=== PATIENT | male | born 1955 | race Caucasian/White ===

== ENCOUNTER 2016-12-05 15:58 | Emergency (ER) | payer OTHER ==
[~2016-12-05] VITALS: Ht 162.6 cm; Wt 57.1 kg
[~2016-12-05 15:58] MED LIST: ADVAIR 250/501 DISK IH; ADVAIR HFA120 INHALA IH; ALDOMET250 MG PO; ALDOMET500 MG PO; ALPRAZOLAM0.25 M2 PO; ALPRAZOLAM0.5 MG PO; ALPRAZOLAM1 MG PO; AMBIEN10 M1 PO; AMITRIPTYLINE H25 MG PO; AMLODIPINE BESY10 MG PO; AMLODIPINE BESYL5 MG PO; AMOX TR-K CLV1 EAC3 PO; ANTI-DIARRHEAL2 M2 PO; ASPIR-TRIN325 M1 PO; ATROVENT 00.5 MG/2.5 IH; Advair HFA 115/21 IH; Ambien PO; BACTRIM,SEPT1 TABLET PO; BUMETANIDE1 MG PO; BYSTOLIC10 MG PO; Bactrim,Septra DS 80 PO; CALCITRIOL0.25 MCG PO; CALCIUM ACETAT667 M2 PO; CALCIUM ACETAT667 MG PO; CARDIZEM CD120 MG PO; CARDIZEM CD240 MG PO; CARDURA XL8 MG PO; CARDURA8 MG PO; CITALOPRAM HBR10 MG PO; CLEOCIN300 MG PO; CLONAZEPAM0.5 MG PO; CLONAZEPAM1 MG PO; CLONIDINE HCL0.1 MG PO; CYANOCOBALAM1000 MCG PO; DEPO-TESTOS100 MG/ML IM; DEPO-TESTOS200 MG/ML IM; DIALYVITE 3,001 EACH PO; DILAUDID2 MG PO; DILAUDID4 MG PO; DIOVAN160 MG PO; DOCUSATE SODIU100 MG PO; DOLOPHINE HCL10 MG PO; DOXAZOSIN MESYLA2 MG PO; DOXAZOSIN MESYLA8 MG PO; DOXYCYCLINE HY100 MG PO; ELAVIL25 MG PO; ELIPHOS667 MG PO; Elavil PO; FEOSOL325 MG PO; FERROUS SULFAT325 M2 PO; FLONASE16 G1 BOTH NARES; FOLIC ACID1 MG PO; FUROSEMIDE40 MG PO; Flomax PO; GABAPENTIN100 MG PO; GABAPENTIN300 MG PO; HUMALOG100 UNIT/1 SC; HUMALOG100 UNIT/1 SQ; HYDROMORPHONE HC2 MG PO; HYDROMORPHONE HC4 MG PO; KEFLEX500 MG PO; KLONOPIN1 MG PO; LABETALOL HCL200 MG PO; LANTUS 10100 UNITS/ SC; LANTUS 3 M100 UNITS/ SC; LANTUS 3 M100 UNITS1 SC; LASIX40 MG PO; LEVAQUIN750 MG PO; LEVOFLOXACIN250 MG PO; LEVOFLOXACIN750 MG PO; METHADONE10 MG PO; METHADOSE40 MG PO; METHYLDOPA250 MG PO; METHYLDOPA500 MG PO; METOCLOPRAMIDE H5 MG PO; MIRALAX17 GM PO; MIRALAX255 GM PO; MUCINEX600 MG PO; NEPHRO-VITE RX1 EACH PO; NEPHRO-VITE,1 TABLET PO; NIFEDICAL XL60 MG PO; NORMODYNE,TRAN200 MG PO; NORVASC10 MG PO; NOVOLIN 70100 UNIT/2 SQ; NOVOLOG 10100 UNITS/ SC; NOVOLOG 10100 UNITS/ SQ; NOVOLOG PE100 UNITS/ SC; Normodyne,Trandate PO; Norvasc PO; OXAYDO5 MG PO; OXYCODONE HCL10 MG PO; OXYCODONE HCL5 MG PO; PANTOPRAZOLE SO40 MG PO; PREDNISONE10 MG PO; PREDNISONE20 MG PO; PRILOSEC OTC20 MG PO; PRILOSEC20 MG PO; PROAIR HFA8.5 GM IH; PROTONIX40 MG PO; PROVENTIL,2.5 MG/3 M IH; PROVENTIL17 GM IH; Procardia XL,Adalat PO; Protonix PO; Proventil,Ventolin H IH; Reglan PO; SPIRIVA RESPIMAT4 GM IH; SPIRIVA1 INHALATI IH; TESTOSTERO200 MG/12 IM; TESTOSTERONE IM; TYLENOL REGULA325 MG PO; Tylenol PR; VENTOLIN HFA18 GM IH; VITAMIN D1000 INTUN PO; XANAX0.5 MG PO; XANAX1 MG PO; Xanax PO; [UNRECOGNIZED DRUG - OTHER] IM; predniSONE PO
[2016-12-05 16:41] LABS: MCH 28.5 PG (29.0-34.0); MCHC 31.8 G/DL (30.0-36.0); MCV 89.9 FL (86-99); MEAN PLAT.VOLUME 9.5 uM^3 (9.0-12.4); PLATELET COUNT 228 K/uL (156-360); RBC DIS.WIDTH-CV 15.6 % (11.8-14.6); RED BLOOD COUNT 4.45 M/uL (4.00-5.50); WHITE BLOOD COUNT 6.2 K/uL (4.1-10.2)
[2016-12-05 17:01] LABS: CHLORIDE 91 mEq/L (99-109); POTASSIUM 4.4 mEq/L (3.7-5.4); SODIUM 138 mEq/L (136-147)
[2016-12-05 17:03] LABS: GLUCOSE 154 mg/dL (70-99)
[2016-12-05 17:04] LABS: ANION GAP 13 MEQ/L (2-14)
[2016-12-05 17:07] LABS: GFR ESTIMATE (CALCULATED) 20 mL/min/
[2016-12-05 17:08] LABS: UREA NITROGEN (BUN) 23 mg/dL (9-23)
[2016-12-05 17:11] LABS: TROP-I INTERPRETATION NEGATIVE; TROPONIN-I 0.02 ng/mL (0.0-0.30)
[2016-12-05 20:15] LABS: TROP-I INTERPRETATION NEGATIVE; TROPONIN-I 0.03 ng/mL (0.0-0.30)
[2016-12-05 21:23] VITALS: BP 180/98
== END 2016-12-05 21:24 | disposition home or self-care (01) ==
LOC: EME → EDBD 15:58 → EDSEX 15:58 → EME 15:58
PROVIDERS: Emergency Medicine
DX: R07.89 Other chest pain (principal); M54.9 Dorsalgia, unspecified; R91.1 Solitary pulmonary nodule; G89.29 Other chronic pain; I12.0 Hypertensive chronic kidney disease with stage 5 chronic kidney disease or end stage renal disease; E11.22 Type 2 diabetes mellitus with diabetic chronic kidney disease; N18.6 End stage renal disease; Z99.2 Dependence on renal dialysis; Z79.4 Long term (current) use of insulin; J44.9 Chronic obstructive pulmonary disease, unspecified; J45.909 Unspecified asthma, uncomplicated; Z87.891 Personal history of nicotine dependence; Z79.891 Long term (current) use of opiate analgesic
CPT/HCPCS: 71020; 80048; 84484; 85027; 93005; 94640; 99281; 99285

== ENCOUNTER 2016-12-18 10:37 | Inpatient (IN) | payer OTHER ==
[~2016-12-18] VITALS: Ht 165.1 cm; Wt 54.7 kg
[2016-12-18 11:36] LABS: MCH 29.3 PG (29.0-34.0); MCHC 31.3 G/DL (30.0-36.0); MCV 93.8 FL (86-99); MEAN PLAT.VOLUME 9.6 uM^3 (9.0-12.4); PLATELET COUNT 165 K/uL (156-360); RBC DIS.WIDTH-CV 15.7 % (11.8-14.6); RBC DIS.WIDTH-SD 51.1 % (39-53); RED BLOOD COUNT 4.16 M/uL (4.00-5.50); WHITE BLOOD COUNT 20.4 K/uL (4.1-10.2)
[2016-12-18 11:40] LABS: CHLORIDE 91 mEq/L (99-109); POTASSIUM 4.9 mEq/L (3.7-5.4); SODIUM 138 mEq/L (136-147)
[2016-12-18 11:40] LABS: BASE EXCESS 8.2 mEq/L (-3 to +3); BICARBONATE 34.9 mEq/L (22-26); CARBOXY HGB 1.5 % (0-5); COMMENTS - BLOOD GASES +C; DEVICE NRBMASK; FI02 100 %; METHEMOGLOBIN 0.6 % (0-1.5); O2 FLOW 15 L/MIN; PCO2 59 mm Hg (35-45); PO2 73 mm Hg (80-100); SITE RR +A; TOTAL RESP RATE 16 resp/min; pH 7.38 (7.35-7.45)
[2016-12-18 11:42] LABS: GLUCOSE 84 mg/dL (70-99)
[2016-12-18 11:43] LABS: ANION GAP 20 MEQ/L (2-14)
[2016-12-18 11:44] LABS: TOTAL BILIRUBIN 0.8 mg/dL (0.0-1.0)
[2016-12-18 11:45] LABS: ALKALINE PHOSPHATASE 106 IU/L (3-129)
[2016-12-18 11:46] LABS: GFR ESTIMATE (CALCULATED) 9 mL/min/
[2016-12-18 11:47] LABS: UREA NITROGEN (BUN) 39 mg/dL (9-23)
[2016-12-18 11:49] LABS: TROP-I INTERPRETATION NEGATIVE; TROPONIN-I 0.07 ng/mL (0.0-0.30)
[2016-12-18 12:18] LABS: EOSINOPHIL (%) 0 % (0-5); IMMATURE GRANULOCYTE (%) 1.6 % (0.0-0.7); IMMATURE GRANULOCYTE COUNT 3.2 K/uL; MONOCYTE (%) 4.9 % (3-12); NEUTROPHIL (%) 88.6 % (45-76); NEUTROPHIL COUNT 18.2 K/uL (1.8-6.4)
[2016-12-18] MEDS ORDERED: DILAUDID4 MG PO (12:32)
[2016-12-18] MEDS ORDERED: METHADONE10 MG PO (12:32)
[2016-12-18] MEDS ORDERED: XANAX0.5 MG PO (12:33)
[2016-12-18] MEDS ORDERED: XANAX0.25 MG PO (12:33)
[2016-12-18 13:09] LABS: HEMATOLOGY COMMENT 1 SMEAR COMPATIBLE; USER ID CL
[2016-12-18 14:06] LABS: CHLORIDE 96 mEq/L (99-109); SODIUM 138 mEq/L (136-147)
[2016-12-18 14:09] LABS: GLUCOSE 146 mg/dL (70-99)
[2016-12-18 14:10] LABS: ANION GAP 14 MEQ/L (2-14)
[2016-12-18 14:11] LABS: TOTAL BILIRUBIN 0.5 mg/dL (0.0-1.0)
[2016-12-18 14:12] LABS: ALKALINE PHOSPHATASE 90 IU/L (3-129); GFR ESTIMATE (CALCULATED) 10 mL/min/
[2016-12-18 14:13] LABS: UREA NITROGEN (BUN) 41 mg/dL (9-23)
[2016-12-18 14:25] LABS: AHBS INDEX 0; HEPATITIS B SURFACE ANTIBODY Nonreactive
[2016-12-18 16:35] LABS: POINT-OF-CARE METER ID UU14100415
[2016-12-18 22:29] VITALS: BP 123/59
[2016-12-19 01:18] VITALS: BP 123/58
[2016-12-19 05:52] VITALS: BP 129/62
[2016-12-19 07:01] LABS: HEMATOCRIT 37.5 % (38.0-50.0); MCH 27.9 PG (29.0-34.0); MCHC 30.1 G/DL (30.0-36.0); MCV 92.6 FL (86-99); PLATELET COUNT 147 K/uL (156-360); RBC DIS.WIDTH-CV 16.2 % (11.8-14.6); RED BLOOD COUNT 4.05 M/uL (4.00-5.50); WHITE BLOOD COUNT 14.4 K/uL (4.1-10.2)
[2016-12-19 07:21] LABS: ALKALINE PHOSPHATASE 71 IU/L (3-129); ANION GAP 16 MEQ/L (2-14); CHLORIDE 96 MEQ/L (99-109); GFR ESTIMATE (CALCULATED) 9 mL/min/; POTASSIUM 5.3 MEQ/L (3.7-5.4); SAMPLE HEMOLYSIS CHECK 0; SAMPLE ICTERIC CHECK 0; SAMPLE LIPEMIA CHECK 0; SODIUM 137 MEQ/L (136-147); TOTAL BILIRUBIN 0.6 MG/DL (0.0-1.0); UREA NITROGEN (BUN) 61 mg/dL (9-23)
[2016-12-19 07:24] LABS: GLUCOSE 98 mg/dL (70-99)
[2016-12-19 08:03] LABS: HEMATOCRIT 34.1 % (38.0-50.0); MCH 29.5 PG (29.0-34.0); MCV 92.4 FL (86-99); MEAN PLAT.VOLUME 9.9 uM^3 (9.0-12.4); PLATELET COUNT 140 K/uL (156-360); RBC DIS.WIDTH-CV 16.1 % (11.8-14.6); RBC DIS.WIDTH-SD 54.2 % (39-53); RED BLOOD COUNT 3.69 M/uL (4.00-5.50); WHITE BLOOD COUNT 14.8 K/uL (4.1-10.2)
[2016-12-19 08:06] LABS: DELETE MACHINE DIFF? YES
[2016-12-19 08:07] LABS: ANISOCYTOSIS 1+; HYPOCHROMASIA 1+; MACROCYTES OCC; PLAT.SUFFICIENCY DECREASED; SPHEROCYTES 1+; USER ID TLW
[2016-12-19 08:17] LABS: EOSINOPHIL (%) 0 % (0-5); IMMATURE GRANULOCYTE (%) 2.8 % (0.0-0.7); IMMATURE GRANULOCYTE COUNT 0.4 K/uL; LYMPHOCYTE COUNT 0.7 K/uL (1.0-2.8); MONOCYTE (%) 2.5 % (3-12); MONOCYTE COUNT 0.4 K/uL (0-0.8); NEUTROPHIL (%) 90.2 % (45-76); NEUTROPHIL COUNT 13.4 K/uL (1.8-6.4)
[2016-12-19 08:18] LABS: ANION GAP 14 MEQ/L (2-14); CHLORIDE 93 MEQ/L (99-109); GFR ESTIMATE (CALCULATED) 8 mL/min/; GLUCOSE 110 mg/dL (70-99); POTASSIUM 5.2 MEQ/L (3.7-5.4); SAMPLE HEMOLYSIS CHECK 0; SAMPLE ICTERIC CHECK 0; SAMPLE LIPEMIA CHECK 0; SODIUM 134 MEQ/L (136-147); UREA NITROGEN (BUN) 63 mg/dL (9-23)
[2016-12-19 08:26] VITALS: BP 144/63
[2016-12-19 08:36] LABS: ABS NEUTROPHIL COUNT 13.95
[2016-12-19 08:37] LABS: ANISOCYTOSIS 1+; HYPOCHROMASIA 1+; MACROCYTES OCC; PLAT.SUFFICIENCY DECREASED; SPHEROCYTES 1+; USER ID TLW
[2016-12-19 16:34] VITALS: BP 119/56
[2016-12-19 20:00] VITALS: BP 147/65
[2016-12-19 23:47] VITALS: BP 124/58
[2016-12-20 04:00] VITALS: BP 129/60
[2016-12-20 07:28] VITALS: BP 139/65
[2016-12-20 08:14] LABS: ANION GAP 14 MEQ/L (2-14); CHLORIDE 95 MEQ/L (99-109); POTASSIUM 5.1 MEQ/L (3.7-5.4); SAMPLE HEMOLYSIS CHECK 0; SAMPLE ICTERIC CHECK 0; SAMPLE LIPEMIA CHECK 0; SODIUM 136 MEQ/L (136-147); UREA NITROGEN (BUN) 46 mg/dL (9-23)
[2016-12-20 08:18] LABS: GFR ESTIMATE (CALCULATED) 13 mL/min/; GLUCOSE 215 mg/dL (70-99); VANCOMYCIN, TROUGH 16.3 MCG/ML (10-20)
[2016-12-20 08:48] LABS: HEMATOLOGY COMMENT 1 REV; USER ID NJR
[2016-12-20 08:49] LABS: EOSINOPHIL (%) 0 % (0-5); IMMATURE GRANULOCYTE (%) 0.6 % (0.0-0.7); IMMATURE GRANULOCYTE COUNT 0.1 K/uL; LYMPHOCYTE COUNT 0.3 K/uL (1.0-2.8); MONOCYTE (%) 2.2 % (3-12); MONOCYTE COUNT 0.2 K/uL (0-0.8); NEUTROPHIL (%) 94.1 % (45-76); NEUTROPHIL COUNT 8.9 K/uL (1.8-6.4)
[2016-12-20 08:50] LABS: HEMATOCRIT 32.8 % (38.0-50.0); MCH 29.5 PG (29.0-34.0); MCHC 31.7 G/DL (30.0-36.0); MCV 92.9 FL (86-99); PLATELET COUNT 123 K/uL (156-360); RBC DIS.WIDTH-CV 16.2 % (11.8-14.6); RBC DIS.WIDTH-SD 55.2 % (39-53); RED BLOOD COUNT 3.53 M/uL (4.00-5.50); WHITE BLOOD COUNT 9.5 K/uL (4.1-10.2)
[2016-12-20 16:44] VITALS: BP 142/66
[2016-12-20 19:41] VITALS: BP 145/70
[2016-12-20 23:33] VITALS: BP 154/71
[2016-12-21 04:00] VITALS: BP 167/77
[2016-12-21 07:54] LABS: INTERNAL CONTROL VALID? YES
[2016-12-21 08:07] LABS: HEMATOCRIT 29.6 % (38.0-50.0); MCH 28.1 PG (29.0-34.0); MCHC 31.4 G/DL (30.0-36.0); MCV 89.4 FL (86-99); MEAN PLAT.VOLUME 9.6 uM^3 (9.0-12.4); PLATELET COUNT 108 K/uL (156-360); RBC DIS.WIDTH-SD 52.9 % (39-53); RED BLOOD COUNT 3.31 M/uL (4.00-5.50); WHITE BLOOD COUNT 9.5 K/uL (4.1-10.2)
[2016-12-21 08:51] LABS: ANION GAP 12 MEQ/L (2-14); CHLORIDE 90 MEQ/L (99-109); POTASSIUM 4.8 MEQ/L (3.7-5.4); SAMPLE HEMOLYSIS CHECK 0; SAMPLE ICTERIC CHECK 0; SAMPLE LIPEMIA CHECK 0
[2016-12-21 08:52] LABS: GFR ESTIMATE (CALCULATED) 10 mL/min/; GLUCOSE 372 mg/dL (70-99); UREA NITROGEN (BUN) 75 mg/dL (9-23)
[2016-12-21 08:53] LABS: SODIUM 128 MEQ/L (136-147)
[2016-12-21 09:15] LABS: ABS NEUTROPHIL COUNT 8.73; ANISOCYTOSIS 1+; EOSINOPHIL (%) 0 % (0-5); IMMATURE GRANULOCYTE (%) 0.7 % (0.0-0.7); IMMATURE GRANULOCYTE COUNT 0.1 K/uL; LYMPHOCYTE COUNT 0.5 K/uL (1.0-2.8); MONOCYTE (%) 4.1 % (3-12); MONOCYTE COUNT 0.4 K/uL (0-0.8); NEUTROPHIL (%) 89.3 % (45-76); NEUTROPHIL COUNT 8.5 K/uL (1.8-6.4); PLAT.SUFFICIENCY DECREASED; POLYCHROMASIA 1+; TOXIC GRANULATION 1+; USER ID MCB
[2016-12-21 12:45] VITALS: BP 138/80
[2016-12-21 16:00] VITALS: BP 153/71
[2016-12-21 20:20] VITALS: BP 164/78
[2016-12-21 23:42] VITALS: BP 177/80
[2016-12-22] VITALS (16 sets, daily range): BP systolic 0–156; BP diastolic 0–88
[2016-12-22 02:07] LABS: TROP-I INTERPRETATION NEGATIVE; TROPONIN-I 0.03 ng/mL (0.0-0.30)
[2016-12-22 02:12] LABS: CHLORIDE 94 mEq/L (99-109); POTASSIUM 4.9 mEq/L (3.7-5.4); SODIUM 134 mEq/L (136-147)
[2016-12-22 02:14] LABS: GLUCOSE 298 mg/dL (70-99)
[2016-12-22 02:15] LABS: ANION GAP 16 MEQ/L (2-14)
[2016-12-22 02:18] LABS: GFR ESTIMATE (CALCULATED) 16 mL/min/
[2016-12-22 02:19] LABS: UREA NITROGEN (BUN) 47 mg/dL (9-23)
[2016-12-22 03:23] LABS: BASE EXCESS 0.9 mEq/L (-3 to +3); BICARBONATE 27.1 mEq/L (22-26); CARBOXY HGB 0.9 % (0-5); COMMENTS - BLOOD GASES C+A+; DEVICE NC; O2 FLOW 4 L/MIN; PCO2 49 mm Hg (35-45); PO2 76 mm Hg (80-100); SITE RR; pH 7.35 (7.35-7.45)
[2016-12-22 06:09] LABS: HEMATOCRIT 35.8 % (38.0-50.0); MCH 28.9 PG (29.0-34.0); MCHC 31.3 G/DL (30.0-36.0); MCV 92.5 FL (86-99); MEAN PLAT.VOLUME 10.4 uM^3 (9.0-12.4); NRBC (%) 0.5 /100 WBC (0-0); PLATELET COUNT 110 K/uL (156-360); RBC DIS.WIDTH-CV 16.3 % (11.8-14.6); RBC DIS.WIDTH-SD 54.1 % (39-53); RED BLOOD COUNT 3.87 M/uL (4.00-5.50); WHITE BLOOD COUNT 7.8 K/uL (4.1-10.2)
[2016-12-22 06:44] LABS: ANION GAP 18 MEQ/L (2-14); CHLORIDE 92 MEQ/L (99-109); GFR ESTIMATE (CALCULATED) 15 mL/min/; GLUCOSE 314 mg/dL (70-99); POTASSIUM 4.8 MEQ/L (3.7-5.4); SAMPLE HEMOLYSIS CHECK 0; SAMPLE ICTERIC CHECK 0; SAMPLE LIPEMIA CHECK 0; SODIUM 133 MEQ/L (136-147); UREA NITROGEN (BUN) 52 mg/dL (9-23)
[2016-12-22 06:47] LABS: VANCOMYCIN, TROUGH 15.7 MCG/ML (10-20)
[2016-12-22 07:06] LABS: METH RESISTANT S AUREUS PCR NEGATIVE (NEGATIVE); PROBE CHECK PASS; SPECIMEN PROCESSING CONTROL PASS
[2016-12-22 07:21] LABS: TROP-I INTERPRETATION NEGATIVE
[2016-12-22 07:48] LABS: BASE EXCESS 1.2 mEq/L (-3 to +3); CARBOXY HGB 0.4 % (0-5); METHEMOGLOBIN 0.9 % (0-1.5); pH 7.41 (7.35-7.45)
[2016-12-22 07:49] LABS: COMMENTS - BLOOD GASES A+C+; CONTINUOUS POS AIRWAY PRESSURE 5 cm H2O; DEVICE 980; FI02 30 %; MODE NIPPV; PCO2 41 mm Hg (35-45); PO2 111 mm Hg (80-100); PRES. SUPPORT 8 CM/H2O; SITE RR; TOTAL RESP RATE 20 resp/min
[2016-12-22 08:26] LABS: BASOPHIL COUNT 0.2 K/uL (0-0.1); EOSINOPHIL (%) 0.1 % (0-5); HEMATOLOGY COMMENT 1 SMEAR COMPATIBLE; IMMATURE GRANULOCYTE (%) 1.3 % (0.0-0.7); IMMATURE GRANULOCYTE COUNT 0.1 K/uL; LYMPHOCYTE COUNT 0.9 K/uL (1.0-2.8); MONOCYTE (%) 4.6 % (3-12); MONOCYTE COUNT 0.4 K/uL (0-0.8); NEUTROPHIL (%) 79.9 % (45-76); NEUTROPHIL COUNT 6.3 K/uL (1.8-6.4); USER ID STC
[2016-12-22 11:09] LABS: Estimated Average Glucose 140 mg/dL (70-123); HEMOGLOBIN A1c (GLYCOHEMOGLOB) 6.5 % HGB (Below 5.7)
[2016-12-22] MEDS ORDERED: ALPRAZOLAM1 MG PO (12:15)
[2016-12-22] MEDS ORDERED: NOVOLOG PE100 UNITS/ SC (12:16)
[2016-12-22 16:02] LABS: TROP-I INTERPRETATION NEGATIVE
[2016-12-22 17:50] LABS: POINT-OF-CARE METER ID UU14174217
[2016-12-22 21:22] LABS: POINT-OF-CARE METER ID UU14174217
[2016-12-22 23:45] LABS: TROP-I INTERPRETATION INDETERMINATE; TROPONIN-I 0.44 ng/mL (0.0-0.30)
[2016-12-23] VITALS (11 sets, daily range): BP systolic 112–154; BP diastolic 61–82
[2016-12-23 05:43] LABS: HEMATOCRIT 32.9 % (38.0-50.0); MCH 28.9 PG (29.0-34.0); MCHC 32.2 G/DL (30.0-36.0); MCV 89.6 FL (86-99); MEAN PLAT.VOLUME 10.4 uM^3 (9.0-12.4); PLATELET COUNT 141 K/uL (156-360); RBC DIS.WIDTH-CV 16.2 % (11.8-14.6); RBC DIS.WIDTH-SD 53.2 % (39-53); RED BLOOD COUNT 3.67 M/uL (4.00-5.50); WHITE BLOOD COUNT 9.9 K/uL (4.1-10.2)
[2016-12-23 06:15] LABS: ANION GAP 15 MEQ/L (2-14); CHLORIDE 92 MEQ/L (99-109); GFR ESTIMATE (CALCULATED) 10 mL/min/; POTASSIUM 4.9 MEQ/L (3.7-5.4); SAMPLE HEMOLYSIS CHECK 0; SAMPLE ICTERIC CHECK 0; SAMPLE LIPEMIA CHECK 0; SODIUM 133 MEQ/L (136-147)
[2016-12-23 06:17] LABS: GLUCOSE 30 mg/dL (70-99); UREA NITROGEN (BUN) 85 mg/dL (9-23)
[2016-12-23 06:21] LABS: TROP-I INTERPRETATION INDETERMINATE; TROPONIN-I 0.52 ng/mL (0.0-0.30)
[2016-12-23 07:21] LABS: POINT-OF-CARE METER ID UU14162636
[2016-12-23 12:18] LABS: POINT-OF-CARE METER ID UU14174217
[2016-12-23 18:20] LABS: POINT-OF-CARE METER ID UU13113731
[2016-12-23 21:42] LABS: POINT-OF-CARE METER ID UU13113731
[2016-12-24] VITALS (12 sets, daily range): BP systolic 129–165; BP diastolic 72–92
[2016-12-24 10:29] LABS: HEMATOCRIT 28.9 % (38.0-50.0); MCH 27.7 PG (29.0-34.0); MCHC 31.5 G/DL (30.0-36.0); MCV 88.1 FL (86-99); NRBC (%) 0.2 /100 WBC (0-0); PLATELET COUNT 144 K/uL (156-360); RBC DIS.WIDTH-CV 16.4 % (11.8-14.6); RBC DIS.WIDTH-SD 53.3 % (39-53); RED BLOOD COUNT 3.28 M/uL (4.00-5.50); WHITE BLOOD COUNT 10.2 K/uL (4.1-10.2)
[2016-12-24 10:31] LABS: EOSINOPHIL (%) 0 % (0-5); IMMATURE GRANULOCYTE (%) 4.6 % (0.0-0.7); IMMATURE GRANULOCYTE COUNT 0.5 K/uL; LYMPHOCYTE COUNT 0.9 K/uL (1.0-2.8); MONOCYTE (%) 2.7 % (3-12); MONOCYTE COUNT 0.3 K/uL (0-0.8); NEUTROPHIL COUNT 8.6 K/uL (1.8-6.4)
[2016-12-24 11:02] LABS: HEMATOLOGY COMMENT 1 SMEAR COMPATIBLE; USER ID BLP
[2016-12-24 11:21] LABS: ANION GAP 17 MEQ/L (2-14); CHLORIDE 87 MEQ/L (99-109); SAMPLE HEMOLYSIS CHECK 0; SAMPLE ICTERIC CHECK 0; SAMPLE LIPEMIA CHECK 0; SODIUM 127 MEQ/L (136-147)
[2016-12-24 11:46] LABS: GLUCOSE 261 mg/dL (70-99)
[2016-12-24 11:47] LABS: GFR ESTIMATE (CALCULATED) 8 mL/min/; UREA NITROGEN (BUN) 111 mg/dL (9-23)
[2016-12-24 12:28] LABS: HBSG INDEX 0.17
[2016-12-25 03:41] VITALS: BP 139/68
[2016-12-25 06:45] LABS: HEMATOCRIT 29.8 % (38.0-50.0); MCH 29.2 PG (29.0-34.0); MCHC 31.9 G/DL (30.0-36.0); MCV 91.7 FL (86-99); RBC DIS.WIDTH-CV 16.7 % (11.8-14.6); RBC DIS.WIDTH-SD 55.5 % (39-53); RED BLOOD COUNT 3.25 M/uL (4.00-5.50); WHITE BLOOD COUNT 9.1 K/uL (4.1-10.2)
[2016-12-25 07:37] LABS: ABS NEUTROPHIL COUNT 7.37; ANISOCYTOSIS 1+; EOSINOPHIL (%) 0.3 % (0-5); HYPOCHROMASIA 3+; IMMATURE GRANULOCYTE (%) 5.1 % (0.0-0.7); IMMATURE GRANULOCYTE COUNT 0.5 K/uL; LYMPHOCYTE COUNT 1.1 K/uL (1.0-2.8); MICROCYTOSIS OCC; MONOCYTE (%) 3.2 % (3-12); MONOCYTE COUNT 0.3 K/uL (0-0.8); NEUTROPHIL (%) 78.7 % (45-76); NEUTROPHIL COUNT 7.2 K/uL (1.8-6.4); TEAR DROP CELLS OCC; USER ID TLW
[2016-12-25 07:39] LABS: PLATELET COUNT UNABLE TO REPORT K/uL (156-360)
[2016-12-25 07:47] VITALS: BP 154/83
[2016-12-25 09:33] LABS: ANION GAP 13 MEQ/L (2-14); CHLORIDE 89 MEQ/L (99-109); GLUCOSE 243 mg/dL (70-99); SAMPLE HEMOLYSIS CHECK 0; SAMPLE ICTERIC CHECK 0; SAMPLE LIPEMIA CHECK 0; SODIUM 132 MEQ/L (136-147)
[2016-12-25 09:37] LABS: GFR ESTIMATE (CALCULATED) 13 mL/min/; POTASSIUM 4.6 MEQ/L (3.7-5.4); UREA NITROGEN (BUN) 51 mg/dL (9-23)
[2016-12-25 11:06] VITALS: BP 161/96
[2016-12-25 20:28] VITALS: BP 175/83
[2016-12-26] VITALS: BP 160/72
[2016-12-26 03:33] VITALS: BP 145/79
[2016-12-26 07:43] VITALS: BP 150/78
[2016-12-26 07:55] LABS: HEMATOCRIT 28.6 % (38.0-50.0); MCH 29.3 PG (29.0-34.0); MCHC 32.9 G/DL (30.0-36.0); MCV 89.1 FL (86-99); RBC DIS.WIDTH-CV 16.1 % (11.8-14.6); RBC DIS.WIDTH-SD 52.9 % (39-53); RED BLOOD COUNT 3.21 M/uL (4.00-5.50); WHITE BLOOD COUNT 10.1 K/uL (4.1-10.2)
[2016-12-26 08:08] LABS: ANION GAP 13 MEQ/L (2-14); CHLORIDE 89 MEQ/L (99-109); POTASSIUM 4.3 MEQ/L (3.7-5.4); SAMPLE HEMOLYSIS CHECK 0; SAMPLE ICTERIC CHECK 0; SAMPLE LIPEMIA CHECK 0; SODIUM 128 MEQ/L (136-147)
[2016-12-26 08:21] LABS: GLUCOSE 167 mg/dL (70-99); UREA NITROGEN (BUN) 73 mg/dL (9-23)
[2016-12-26 08:25] LABS: GFR ESTIMATE (CALCULATED) 10 mL/min/
[2016-12-26 08:39] LABS: MEAN PLAT.VOLUME 9.9 uM^3 (9.0-12.4)
[2016-12-26 08:43] LABS: EOSINOPHIL (%) 1.3 % (0-5); EOSINOPHIL COUNT 0.1 K/uL (0-0.3); HEMATOLOGY COMMENT 1 SMEAR COMPATIBLE; IMMATURE GRANULOCYTE (%) 4.5 % (0.0-0.7); IMMATURE GRANULOCYTE COUNT 0.5 K/uL; MONOCYTE (%) 5.4 % (3-12); MONOCYTE COUNT 0.5 K/uL (0-0.8); NEUTROPHIL (%) 78.7 % (45-76); NEUTROPHIL COUNT 7.9 K/uL (1.8-6.4); PLAT.SUFFICIENCY ADEQUATE; USER ID TLW
[2016-12-26 08:44] LABS: PLATELET COUNT 176 K/uL (156-360)
[2016-12-26 14:58] LABS: TROP-I INTERPRETATION NEGATIVE; TROPONIN-I 0.06 ng/mL (0.0-0.30)
[2016-12-26 15:27] VITALS: BP 148/71
[2016-12-26 19:35] VITALS: BP 150/72
[2016-12-27 00:06] VITALS: BP 152/81
[2016-12-27 06:58] LABS: HEMATOCRIT 31.2 % (38.0-50.0); MCH 28.8 PG (29.0-34.0); MCHC 31.4 G/DL (30.0-36.0); MCV 91.8 FL (86-99); MEAN PLAT.VOLUME 10.7 uM^3 (9.0-12.4); RBC DIS.WIDTH-SD 54.2 % (39-53); WHITE BLOOD COUNT 11.5 K/uL (4.1-10.2)
[2016-12-27 07:11] LABS: PLATELET COUNT 230 K/uL (156-360)
[2016-12-27 07:21] LABS: ANION GAP 10 MEQ/L (2-14); CHLORIDE 94 MEQ/L (99-109); GFR ESTIMATE (CALCULATED) 15 mL/min/; GLUCOSE 139 mg/dL (70-99); POTASSIUM 4.2 MEQ/L (3.7-5.4); SAMPLE HEMOLYSIS CHECK 0; SAMPLE ICTERIC CHECK 0; SAMPLE LIPEMIA CHECK 0; SODIUM 132 MEQ/L (136-147)
[2016-12-27 07:27] LABS: UREA NITROGEN (BUN) 33 mg/dL (9-23)
[2016-12-27 07:30] LABS: POINT-OF-CARE METER ID UU14188625
[2016-12-27 08:00] VITALS: BP 136/59
[2016-12-27 11:00] VITALS: BP 128/65
[2016-12-27] MEDS ORDERED: GUAIFENESIN WI120 M1 PO (13:58)
[2016-12-27] MEDS ORDERED: BENZONATATE100 MG PO (13:58)
[2016-12-27] MEDS ORDERED: PREDNISONE10 MG PO (13:59)
[2016-12-27] MEDS ORDERED: PROVENTIL HFA6.7 GM IH (15:02)
[2016-12-27] MEDS ORDERED: SPIRIVA RESPIMAT4 G1 IH (15:02)
[2016-12-27 15:44] VITALS: BP 158/76
== END 2016-12-27 18:57 | disposition home health service (06) | DRG 871 ==
LOC: EME → EDBD 10:37 → EME 10:37 → 2EAST 13:13 → 4EAST 13:13 → EDOF 13:13 → 4WEST 13:13 → EDOF 13:42 → 4EAST 21:29 → 2EAST 12-21 20:14 → 4WEST 12-22 04:52 → 5SOUTH 12-24 15:37
PROVIDERS: Emergency Medicine; Family Medicine; Hospitalist; Internal Medicine; Internal Medicine Nephrology; Nurse Practitioner Adult Health; Obstetrics & Gynecology; Physician Assistant Medical; Specialist
PROC: 5A1D60Z (ICD-10-PCS; principal; 2016-12-19)
PROC: 5A09357 Assistance with Respiratory Ventilation, Less than 24 Consecutive Hours, Continuous Positive Airway Pressure (ICD-10-PCS; 2016-12-22)
DX: A41.9 Sepsis, unspecified organism (principal); J96.01 Acute respiratory failure with hypoxia; J18.9 Pneumonia, unspecified organism; N18.6 End stage renal disease; L89.153 Pressure ulcer of sacral region, stage 3; J44.1 Chronic obstructive pulmonary disease with (acute) exacerbation; J44.0 Chronic obstructive pulmonary disease with (acute) lower respiratory infection; E87.2 Acidosis; E87.1 Hypo-osmolality and hyponatremia; F11.20 Opioid dependence, uncomplicated; R64 Cachexia; E87.5 Hyperkalemia; G89.29 Other chronic pain; I12.0 Hypertensive chronic kidney disease with stage 5 chronic kidney disease or end stage renal disease; E11.22 Type 2 diabetes mellitus with diabetic chronic kidney disease; I95.9 Hypotension, unspecified; R65.20 Severe sepsis without septic shock; Z99.2 Dependence on renal dialysis; Z87.891 Personal history of nicotine dependence; F13.90 Sedative, hypnotic, or anxiolytic use, unspecified, uncomplicated; K59.00 Constipation, unspecified; Z99.81 Dependence on supplemental oxygen; D64.9 Anemia, unspecified; R74.8 Abnormal levels of other serum enzymes
CPT/HCPCS: 36600; 71010; 71250; 71275; 74176; 80048; 80053; 80069; 80202; 81003; 82803; 82948; 83036; 83605; 83880; 84484; 85025; 85025 91; 85027; 86706; 87040; 87070; 87205; 87340; 87449; 87641; 93005; 93970; 94002; 94640; 94640 76; 94660; 94760; 94799; 97530 GO; 99202; 99281; 99285; J0360; J0456; J0692; J1644; J1815; J1940; J2060; J2270; J2405; J2920; J2930; J3370; J7030; J7050; J7512

== ENCOUNTER 2016-12-30 13:56 | Inpatient (IN) | payer OTHER ==
[~2016-12-30] VITALS: Ht 175.3 cm; Wt 55.5 kg
[~2016-12-30 13:56] MED LIST changes: +BENZONATATE100 MG PO; +GUAIFENESIN WI120 M1 PO; +PROVENTIL HFA6.7 GM IH; +SPIRIVA RESPIMAT4 G1 IH; +XANAX0.25 MG PO
[2016-12-30 14:45] LABS: BASE EXCESS -1.2 mEq/L (-3 to +3); BICARBONATE 23.6 mEq/L (22-26); CARBOXY HGB 1.7 % (0-5); METHEMOGLOBIN 0.8 % (0-1.5); PCO2 39 mm Hg (35-45); pH 7.39 (7.35-7.45)
[2016-12-30 14:46] LABS: COMMENTS - BLOOD GASES A+C+; DEVICE NC; O2 FLOW 1.5 L/MIN; PO2 69 mm Hg (80-100); SITE RR
[2016-12-30 16:04] LABS: CHLORIDE 93 mEq/L (99-109); SODIUM 133 mEq/L (136-147)
[2016-12-30 16:06] LABS: GLUCOSE 112 mg/dL (70-99)
[2016-12-30 16:08] LABS: ANION GAP 18 MEQ/L (2-14); TOTAL BILIRUBIN 0.6 mg/dL (0.0-1.0)
[2016-12-30 16:09] LABS: POTASSIUM 5.4 mEq/L (3.7-5.4)
[2016-12-30 16:10] LABS: ALKALINE PHOSPHATASE 116 IU/L (3-129); GFR ESTIMATE (CALCULATED) 6 mL/min/
[2016-12-30 16:13] LABS: UREA NITROGEN (BUN) 76 mg/dL (9-23)
[2016-12-30 16:15] LABS: TROP-I INTERPRETATION NEGATIVE; TROPONIN-I 0.06 ng/mL (0.0-0.30)
[2016-12-30 16:25] LABS: EOSINOPHIL (%) 0.8 % (0-5); EOSINOPHIL COUNT 0.1 K/uL (0-0.3); HEMATOCRIT 33.7 % (38.0-50.0); IMMATURE GRANULOCYTE (%) 0.8 % (0.0-0.7); IMMATURE GRANULOCYTE COUNT 0.1 K/uL; INSTRUMENT ABS NEUTROPHIL CT 9.8 K/uL; LYMPHOCYTE COUNT 0.9 K/uL (1.0-2.8); MCV 90.3 FL (86-99); MEAN PLAT.VOLUME 9.7 uM^3 (9.0-12.4); MONOCYTE (%) 7.4 % (3-12); MONOCYTE COUNT 0.9 K/uL (0-0.8); NEUTROPHIL (%) 83.3 % (45-76); NEUTROPHIL COUNT 9.8 K/uL (1.8-6.4); PLATELET COUNT 248 K/uL (156-360); RBC DIS.WIDTH-CV 15.1 % (11.8-14.6); RBC DIS.WIDTH-SD 49.9 % (39-53); RED BLOOD COUNT 3.73 M/uL (4.00-5.50); WHITE BLOOD COUNT 11.7 K/uL (4.1-10.2)
[2016-12-30 16:55] LABS: ADD MIUA? YES; BILIRUBIN NEGATIVE; BLOOD NEGATIVE; COLOR STRAW ((YELLOW)); GLUCOSE (STRIP) 150; KETONES NEGATIVE; LEUKOCYTES NEGATIVE; NITRITE NEGATIVE; PROTEIN (STRIP) 100; SPECIFIC GRAVITY 1.009 (1.000-1.030); UROBILINOGEN 0.2 MG/DL (0.2-1.0)
[2016-12-30 17:13] LABS: BACTERIA NONE SEEN /HPF; EPITHELIAL CELLS RARE /HPF; MUCUS NONE SEEN /LPF; RED BLOOD CELLS 0-5 /HPF (0-5); UCUL ADDED? NO; WHITE BLOOD CELLS 0-5 /HPF (0-5)
[2016-12-30 21:45] VITALS: BP 180/70
[2016-12-30 23:26] LABS: CHLORIDE 95 mEq/L (99-109); SODIUM 135 mEq/L (136-147)
[2016-12-30 23:27] LABS: POTASSIUM 4.1 mEq/L (3.7-5.4)
[2016-12-30 23:28] LABS: GLUCOSE 117 mg/dL (70-99)
[2016-12-30 23:30] LABS: ANION GAP 16 MEQ/L (2-14); TOTAL BILIRUBIN 0.6 mg/dL (0.0-1.0)
[2016-12-30 23:32] LABS: ALKALINE PHOSPHATASE 110 IU/L (3-129); GFR ESTIMATE (CALCULATED) 15 mL/min/
[2016-12-30 23:34] LABS: DIRECT BILIRUBIN 0.2 mg/dL (0.0-0.3); UREA NITROGEN (BUN) 27 mg/dL (9-23)
[2016-12-31 06:17] LABS: EOSINOPHIL (%) 0.4 % (0-5); EOSINOPHIL COUNT 0.1 K/uL (0-0.3); HEMATOCRIT 32.7 % (38.0-50.0); IMMATURE GRANULOCYTE (%) 0.7 % (0.0-0.7); IMMATURE GRANULOCYTE COUNT 0.1 K/uL; INSTRUMENT ABS NEUTROPHIL CT 9.6 K/uL; LYMPHOCYTE COUNT 0.7 K/uL (1.0-2.8); MCH 28.7 PG (29.0-34.0); MCHC 31.8 G/DL (30.0-36.0); MCV 90.1 FL (86-99); MEAN PLAT.VOLUME 10.4 uM^3 (9.0-12.4); MONOCYTE (%) 6.4 % (3-12); MONOCYTE COUNT 0.7 K/uL (0-0.8); NEUTROPHIL (%) 86.3 % (45-76); NEUTROPHIL COUNT 9.6 K/uL (1.8-6.4); PLATELET COUNT 254 K/uL (156-360); RBC DIS.WIDTH-SD 49.8 % (39-53); RED BLOOD COUNT 3.63 M/uL (4.00-5.50); WHITE BLOOD COUNT 11.2 K/uL (4.1-10.2)
[2016-12-31 06:42] LABS: ANION GAP 13 MEQ/L (2-14); CHLORIDE 94 MEQ/L (99-109); GFR ESTIMATE (CALCULATED) 14 mL/min/; GLUCOSE 133 mg/dL (70-99); POTASSIUM 4.4 MEQ/L (3.7-5.4); SAMPLE HEMOLYSIS CHECK 0; SAMPLE ICTERIC CHECK 0; SAMPLE LIPEMIA CHECK 0; SODIUM 132 MEQ/L (136-147); UREA NITROGEN (BUN) 34 mg/dL (9-23)
[2016-12-31 06:56] VITALS: BP 179/82
[2016-12-31 11:19] VITALS: BP 163/85
[2016-12-31 14:57] VITALS: BP 155/71
[2016-12-31 23:21] VITALS: BP 145/66
[2017-01-01 05:42] LABS: POINT-OF-CARE METER ID UU13113725
[2017-01-01 06:43] LABS: ANION GAP 10 MEQ/L (2-14); CHLORIDE 95 MEQ/L (99-109); POTASSIUM 4.6 MEQ/L (3.7-5.4); SAMPLE HEMOLYSIS CHECK 0; SAMPLE ICTERIC CHECK 0; SAMPLE LIPEMIA CHECK 0; SODIUM 133 MEQ/L (136-147); UREA NITROGEN (BUN) 49 mg/dL (9-23)
[2017-01-01 06:47] LABS: GFR ESTIMATE (CALCULATED) 9 mL/min/; GLUCOSE 67 mg/dL (70-99); VANCOMYCIN, TROUGH 18.7 MCG/ML (10-20)
[2017-01-01 07:04] VITALS: BP 184/77
[2017-01-01 07:06] LABS: HEMATOCRIT 28.9 % (38.0-50.0); MCH 28.8 PG (29.0-34.0); MCHC 31.5 G/DL (30.0-36.0); MCV 91.5 FL (86-99); MEAN PLAT.VOLUME 10.4 uM^3 (9.0-12.4); PLATELET COUNT 206 K/uL (156-360); RBC DIS.WIDTH-CV 14.9 % (11.8-14.6); RBC DIS.WIDTH-SD 50.5 % (39-53); RED BLOOD COUNT 3.16 M/uL (4.00-5.50)
[2017-01-01 07:24] LABS: WHITE BLOOD COUNT 7.2 K/uL (4.1-10.2)
[2017-01-01 08:56] VITALS: BP 164/69
[2017-01-01] MEDS ORDERED: LABETALOL HCL200 MG PO (13:53)
[2017-01-01] MEDS ORDERED: POLYETHYLENE GL17 GM PO (13:53)
[2017-01-01] MEDS ORDERED: RENAPLEX PO (13:54)
[2017-01-01] MEDS ORDERED: CALCIUM ACETAT667 MG PO (13:55)
[2017-01-01 15:28] VITALS: BP 183/84
[2017-01-01 16:30] LABS: POINT-OF-CARE METER ID UU13113725
[2017-01-02 00:16] VITALS: BP 144/64
[2017-01-02 07:00] VITALS: BP 178/78
[2017-01-02 07:34] LABS: POINT-OF-CARE METER ID UU13113725
[2017-01-02 07:44] LABS: EOSINOPHIL (%) 1.9 % (0-5); EOSINOPHIL COUNT 0.1 K/uL (0-0.3); HEMATOCRIT 25.8 % (38.0-50.0); IMMATURE GRANULOCYTE (%) 0.4 % (0.0-0.7); INSTRUMENT ABS NEUTROPHIL CT 5.5 K/uL; LYMPHOCYTE COUNT 0.9 K/uL (1.0-2.8); MCH 28.9 PG (29.0-34.0); MCHC 31.4 G/DL (30.0-36.0); MCV 92.1 FL (86-99); MEAN PLAT.VOLUME 11.8 uM^3 (9.0-12.4); MONOCYTE (%) 10.6 % (3-12); MONOCYTE COUNT 0.8 K/uL (0-0.8); NEUTROPHIL (%) 74.9 % (45-76); NEUTROPHIL COUNT 5.5 K/uL (1.8-6.4); PLAT.SUFFICIENCY DECREASED; RBC DIS.WIDTH-CV 14.7 % (11.8-14.6); RBC DIS.WIDTH-SD 50.1 % (39-53); WHITE BLOOD COUNT 7.4 K/uL (4.1-10.2)
[2017-01-02 07:45] LABS: PLATELET COUNT 142 K/uL (156-360)
[2017-01-02 08:14] LABS: ANION GAP 19 MEQ/L (2-14); CHLORIDE 98 MEQ/L (99-109); GLUCOSE 72 mg/dL (70-99); POTASSIUM 5.2 MEQ/L (3.7-5.4); SAMPLE HEMOLYSIS CHECK 0; SAMPLE ICTERIC CHECK 0; SAMPLE LIPEMIA CHECK 0; SODIUM 134 MEQ/L (136-147); UREA NITROGEN (BUN) 66 mg/dL (9-23)
[2017-01-02 08:17] LABS: GFR ESTIMATE (CALCULATED) 8 mL/min/
[2017-01-02] MEDS ORDERED: AMLODIPINE BESY10 MG PO (12:15)
[2017-01-02] MEDS ORDERED: CYCLOBENZAPRINE5 MG PO (12:15)
[2017-01-02] MEDS ORDERED: NIFEDIPINE ER30 MG PO (12:15)
[2017-01-02 12:56] LABS: POINT-OF-CARE METER ID UU13113725
== END 2017-01-02 15:07 | disposition home health service (06) | DRG 190 ==
LOC: EME 13:56 → EDOF 17:55 → 5EAST 17:55
PROVIDERS: Emergency Medicine; Family Medicine; Hospitalist; Internal Medicine Nephrology
PROC: 5A1D60Z (ICD-10-PCS; principal; 2016-12-30)
DX: J44.0 Chronic obstructive pulmonary disease with (acute) lower respiratory infection (principal); N18.6 End stage renal disease; J18.9 Pneumonia, unspecified organism; G93.41 Metabolic encephalopathy; L89.153 Pressure ulcer of sacral region, stage 3; E87.1 Hypo-osmolality and hyponatremia; I50.32 Chronic diastolic (congestive) heart failure; I13.2 Hypertensive heart and chronic kidney disease with heart failure and with stage 5 chronic kidney disease, or end stage renal disease; Z68.1 Body mass index [BMI] 19.9 or less, adult; J44.1 Chronic obstructive pulmonary disease with (acute) exacerbation; Z87.891 Personal history of nicotine dependence; Z99.2 Dependence on renal dialysis; E87.5 Hyperkalemia; D63.8 Anemia in other chronic diseases classified elsewhere; R63.6 Underweight; E11.22 Type 2 diabetes mellitus with diabetic chronic kidney disease; E11.40 Type 2 diabetes mellitus with diabetic neuropathy, unspecified
CPT/HCPCS: 36600; 70450; 71010; 71250; 80048; 80048 91; 80053; 80069; 80076; 80170; 80202; 81003; 82140; 82803; 82948; 83605; 84484; 85025; 85027; 87040; 93005; 94799; 99281; 99285; J0692; J0881; J1580; J1644; J1815; J2060; J2310; J3370; J7050; S0028

== ENCOUNTER 2017-01-09 21:51 | Emergency (ER) | payer OTHER ==
[~2017-01-09] VITALS: Ht 165.1 cm; Wt 56.7 kg
[~2017-01-09 21:51] MED LIST changes: +CYCLOBENZAPRINE5 MG PO; +NIFEDIPINE ER30 MG PO; +POLYETHYLENE GL17 GM PO; +RENAPLEX PO
[2017-01-09 22:16] LABS: HEMATOCRIT 28.7 % (38.0-50.0); MCH 28.6 PG (29.0-34.0); MCV 92.3 FL (86-99); PLATELET COUNT 181 K/uL (156-360); RBC DIS.WIDTH-CV 15.1 % (11.8-14.6); RBC DIS.WIDTH-SD 50.3 % (39-53); RED BLOOD COUNT 3.11 M/uL (4.00-5.50); WHITE BLOOD COUNT 5.5 K/uL (4.1-10.2)
[2017-01-09 22:17] LABS: CHLORIDE 89 mEq/L (99-109); POTASSIUM 4.3 mEq/L (3.7-5.4); SODIUM 136 mEq/L (136-147)
[2017-01-09 22:19] LABS: GLUCOSE 136 mg/dL (70-99)
[2017-01-09 22:20] LABS: ANION GAP 13 MEQ/L (2-14)
[2017-01-09 22:23] LABS: GFR ESTIMATE (CALCULATED) 13 mL/min/; MEAN PLAT.VOLUME 9.5 uM^3 (9.0-12.4); UREA NITROGEN (BUN) 23 mg/dL (9-23)
[2017-01-09 22:47] LABS: TOTAL BILIRUBIN 0.6 mg/dL (0.0-1.0)
[2017-01-09 22:48] LABS: ALKALINE PHOSPHATASE 135 IU/L (3-129)
[2017-01-09 22:51] LABS: DIRECT BILIRUBIN 0.2 mg/dL (0.0-0.3)
[2017-01-09 22:52] LABS: LIPASE 9 U/L (1.0-51.0)
[2017-01-09 22:53] LABS: TROP-I INTERPRETATION NEGATIVE; TROPONIN-I 0.02 ng/mL (0.0-0.30)
[2017-01-10 02:22] VITALS: BP 142/76
== END 2017-01-10 02:24 | disposition home or self-care (01) ==
LOC: EME 21:51
DX: R53.1 Weakness (principal); I12.9 Hypertensive chronic kidney disease with stage 1 through stage 4 chronic kidney disease, or unspecified chronic kidney disease; N18.9 Chronic kidney disease, unspecified; D64.9 Anemia, unspecified; E87.8 Other disorders of electrolyte and fluid balance, not elsewhere classified; Z99.2 Dependence on renal dialysis; J45.909 Unspecified asthma, uncomplicated; I50.9 Heart failure, unspecified; E11.22 Type 2 diabetes mellitus with diabetic chronic kidney disease; K21.9 Gastro-esophageal reflux disease without esophagitis; F41.9 Anxiety disorder, unspecified; Z98.1 Arthrodesis status; Z79.4 Long term (current) use of insulin; Z87.891 Personal history of nicotine dependence
CPT/HCPCS: 70450; 71020; 80048; 80076; 81003; 82140; 83690; 84484; 85027; 93005; 99281; 99284

== ENCOUNTER 2017-01-15 20:28 | Inpatient (IN) | payer OTHER ==
[~2017-01-15] VITALS: Ht 165.1 cm; Wt 51.9 kg
[2017-01-15 20:47] LABS: HEMATOCRIT 29.6 % (38.0-50.0); MCH 29.2 PG (29.0-34.0); MCHC 31.1 G/DL (30.0-36.0); PLATELET COUNT 179 K/uL (156-360); RBC DIS.WIDTH-CV 15.7 % (11.8-14.6); RBC DIS.WIDTH-SD 53.6 % (39-53); RED BLOOD COUNT 3.15 M/uL (4.00-5.50); WHITE BLOOD COUNT 5.5 K/uL (4.1-10.2)
[2017-01-15 21:00] LABS: ANION GAP 11 MEQ/L (2-14); GFR ESTIMATE (CALCULATED) 14 mL/min/; GLUCOSE 118 mg/dL (70-99)
[2017-01-15 21:01] LABS: UREA NITROGEN (BUN) 13 mg/dL (9-23)
[2017-01-15 21:14] LABS: CHLORIDE 93 mEq/L (99-109); POTASSIUM 3.7 mEq/L (3.7-5.4); SODIUM 137 mEq/L (136-147)
[2017-01-15 21:31] LABS: TROP-I INTERPRETATION NEGATIVE; TROPONIN-I 0.02 ng/mL (0.0-0.30)
[2017-01-16] MEDS ORDERED: SPIRIVA RESPIMAT4 G1 IH (00:13)
[2017-01-16] MEDS ORDERED: NIFEDIPINE ER30 MG PO (00:13)
[2017-01-16] MEDS ORDERED: AMLODIPINE BESY10 MG PO (00:13)
[2017-01-16] MEDS ORDERED: RENAPLEX-D PO (00:15)
[2017-01-16 06:11] LABS: EOSINOPHIL (%) 0.3 % (0-5); HEMATOCRIT 27.6 % (38.0-50.0); IMMATURE GRANULOCYTE (%) 0.5 % (0.0-0.7); INSTRUMENT ABS NEUTROPHIL CT 7.6 K/uL; LYMPHOCYTE COUNT 0.4 K/uL (1.0-2.8); MCH 28.9 PG (29.0-34.0); MCHC 30.8 G/DL (30.0-36.0); MCV 93.9 FL (86-99); MEAN PLAT.VOLUME 9.6 uM^3 (9.0-12.4); MONOCYTE (%) 6.7 % (3-12); MONOCYTE COUNT 0.6 K/uL (0-0.8); NEUTROPHIL (%) 87.3 % (45-76); NEUTROPHIL COUNT 7.6 K/uL (1.8-6.4); PLATELET COUNT 176 K/uL (156-360); RBC DIS.WIDTH-CV 15.7 % (11.8-14.6); RBC DIS.WIDTH-SD 53.6 % (39-53); RED BLOOD COUNT 2.94 M/uL (4.00-5.50); WHITE BLOOD COUNT 8.7 K/uL (4.1-10.2)
[2017-01-16 06:14] LABS: CHLORIDE 93 mEq/L (99-109); POTASSIUM 3.5 mEq/L (3.7-5.4); SODIUM 136 mEq/L (136-147)
[2017-01-16 06:17] LABS: ANION GAP 12 MEQ/L (2-14)
[2017-01-16 06:19] LABS: GFR ESTIMATE (CALCULATED) 13 mL/min/
[2017-01-16 06:20] LABS: UREA NITROGEN (BUN) 15 mg/dL (9-23)
[2017-01-16 06:25] LABS: GLUCOSE 181 mg/dL (70-99)
[2017-01-16 06:33] LABS: ADD MIUA? YES; BILIRUBIN NEGATIVE; BLOOD NEGATIVE; COLOR YELLOW ((YELLOW)); GLUCOSE (STRIP) 150; KETONES 5; LEUKOCYTES NEGATIVE; NITRITE NEGATIVE; PROTEIN (STRIP) >=500; SPECIFIC GRAVITY 1.009 (1.000-1.030); UROBILINOGEN 0.2 MG/DL (0.2-1.0)
[2017-01-16 06:42] LABS: BACTERIA NONE SEEN /HPF; EPITHELIAL CELLS RARE /HPF; MUCUS TRACE /LPF; UCUL ADDED? NO; WHITE BLOOD CELLS 0-5 /HPF (0-5)
[2017-01-16 08:04] LABS: INTERNAL CONTROL VALID? YES
[2017-01-16 08:10] LABS: POINT-OF-CARE METER ID UU13113702
[2017-01-16 13:45] VITALS: BP 144/67
[2017-01-16 18:36] VITALS: BP 147/68
[2017-01-16 20:37] LABS: POINT-OF-CARE METER ID UU13113725
[2017-01-16 22:43] VITALS: BP 181/74
[2017-01-17 03:19] VITALS: BP 158/85
[2017-01-17 05:51] LABS: POINT-OF-CARE METER ID UU13113725
[2017-01-17 09:21] LABS: HEMATOCRIT 28.3 % (38.0-50.0); MCH 28.8 PG (29.0-34.0); MCV 95.9 FL (86-99); MEAN PLAT.VOLUME 9.2 uM^3 (9.0-12.4); PLATELET COUNT 190 K/uL (156-360); RBC DIS.WIDTH-CV 15.8 % (11.8-14.6); RBC DIS.WIDTH-SD 55.4 % (39-53); RED BLOOD COUNT 2.95 M/uL (4.00-5.50); WHITE BLOOD COUNT 7.3 K/uL (4.1-10.2)
[2017-01-17 09:41] LABS: ALKALINE PHOSPHATASE 113 IU/L (3-129); ANION GAP 7 MEQ/L (2-14); CHLORIDE 95 MEQ/L (99-109); GFR ESTIMATE (CALCULATED) 17 mL/min/; GLUCOSE 183 mg/dL (70-99); POTASSIUM 4.1 MEQ/L (3.7-5.4); SAMPLE HEMOLYSIS CHECK 0; SAMPLE ICTERIC CHECK 0; SAMPLE LIPEMIA CHECK 0; SODIUM 136 MEQ/L (136-147); TOTAL BILIRUBIN 0.5 MG/DL (0.0-1.0); UREA NITROGEN (BUN) 11 mg/dL (9-23)
[2017-01-17 11:00] VITALS: BP 117/65
[2017-01-17 12:31] LABS: POINT-OF-CARE METER ID UU13113725
[2017-01-17 16:00] VITALS: BP 116/57
[2017-01-17 18:40] VITALS: BP 130/60
[2017-01-17 23:55] VITALS: BP 135/68
[2017-01-18 03:27] VITALS: BP 153/72
[2017-01-18 07:36] LABS: ANION GAP 11 MEQ/L (2-14); CHLORIDE 90 MEQ/L (99-109); GLUCOSE 159 mg/dL (70-99); POTASSIUM 4.9 MEQ/L (3.7-5.4); SAMPLE HEMOLYSIS CHECK 0; SAMPLE ICTERIC CHECK 0; SAMPLE LIPEMIA CHECK 0; SODIUM 133 MEQ/L (136-147)
[2017-01-18 07:37] LABS: GFR ESTIMATE (CALCULATED) 11 mL/min/; UREA NITROGEN (BUN) 29 mg/dL (9-23)
[2017-01-18 08:00] VITALS: BP 159/79
[2017-01-18 08:21] LABS: EOSINOPHIL (%) 0 % (0-5); HEMATOCRIT 35.6 % (38.0-50.0); IMMATURE GRANULOCYTE (%) 0.4 % (0.0-0.7); LYMPHOCYTE COUNT 0.4 K/uL (1.0-2.8); MCH 28.8 PG (29.0-34.0); MCHC 30.6 G/DL (30.0-36.0); MCV 94.2 FL (86-99); MEAN PLAT.VOLUME 9.7 uM^3 (9.0-12.4); MONOCYTE (%) 3.4 % (3-12); MONOCYTE COUNT 0.2 K/uL (0-0.8); NEUTROPHIL (%) 88.9 % (45-76); PLATELET COUNT 233 K/uL (156-360); RBC DIS.WIDTH-CV 15.4 % (11.8-14.6); RBC DIS.WIDTH-SD 53.1 % (39-53); WHITE BLOOD COUNT 5.6 K/uL (4.1-10.2)
[2017-01-18 08:24] LABS: RED BLOOD COUNT 3.78 M/uL (4.00-5.50)
[2017-01-18 12:50] LABS: POINT-OF-CARE METER ID UU13113725
[2017-01-18 17:16] VITALS: BP 171/79
[2017-01-18 17:39] LABS: POINT-OF-CARE METER ID UU13113725
[2017-01-18 18:21] VITALS: BP 137/71
[2017-01-18 20:15] LABS: POINT-OF-CARE METER ID UU13113725
[2017-01-18 22:40] VITALS: BP 135/69
[2017-01-19 05:46] LABS: POINT-OF-CARE METER ID UU13113725
[2017-01-19 07:11] LABS: EOSINOPHIL (%) 0 % (0-5); HEMATOCRIT 34.1 % (38.0-50.0); IMMATURE GRANULOCYTE (%) 0.5 % (0.0-0.7); IMMATURE GRANULOCYTE COUNT 0.1 K/uL; INSTRUMENT ABS NEUTROPHIL CT 8.4 K/uL; LYMPHOCYTE COUNT 0.8 K/uL (1.0-2.8); MCH 28.7 PG (29.0-34.0); MCHC 30.5 G/DL (30.0-36.0); MCV 94.2 FL (86-99); MEAN PLAT.VOLUME 9.2 uM^3 (9.0-12.4); MONOCYTE (%) 7.5 % (3-12); MONOCYTE COUNT 0.8 K/uL (0-0.8); NEUTROPHIL COUNT 8.4 K/uL (1.8-6.4); PLATELET COUNT 299 K/uL (156-360); RBC DIS.WIDTH-CV 15.5 % (11.8-14.6); RBC DIS.WIDTH-SD 53.1 % (39-53); RED BLOOD COUNT 3.62 M/uL (4.00-5.50)
[2017-01-19 08:00] VITALS: BP 139/74
[2017-01-19 09:13] LABS: CHLORIDE 88 mEq/L (99-109); POTASSIUM 4.2 mEq/L (3.7-5.4); SODIUM 133 mEq/L (136-147)
[2017-01-19 09:15] LABS: GLUCOSE 180 mg/dL (70-99)
[2017-01-19 09:16] LABS: ANION GAP 13 MEQ/L (2-14)
[2017-01-19 09:19] LABS: GFR ESTIMATE (CALCULATED) 14 mL/min/
[2017-01-19 09:20] LABS: UREA NITROGEN (BUN) 32 mg/dL (9-23)
[2017-01-19 12:23] LABS: POINT-OF-CARE METER ID UU13113725
[2017-01-19 16:00] VITALS: BP 142/80
[2017-01-19 16:20] LABS: POINT-OF-CARE METER ID UU13113725
[2017-01-19 20:50] LABS: POINT-OF-CARE METER ID UU13113725
[2017-01-19 22:32] VITALS: BP 132/69
[2017-01-20 07:40] LABS: C DIFF TOXIN NEGATIVE (NEGATIVE)
[2017-01-20 07:41] LABS: PROBE CHECK PASS; SPECIMEN PROCESSING CONTROL PASS
[2017-01-20 08:40] VITALS: BP 181/92
[2017-01-20 15:44] VITALS: BP 139/74
[2017-01-20 22:54] VITALS: BP 156/77
[2017-01-21 07:11] LABS: ANION GAP 7 MEQ/L (2-14); CHLORIDE 86 MEQ/L (99-109); POTASSIUM 4.6 MEQ/L (3.7-5.4); SAMPLE HEMOLYSIS CHECK 0; SAMPLE ICTERIC CHECK 0; SAMPLE LIPEMIA CHECK 0; SODIUM 130 MEQ/L (136-147)
[2017-01-21 07:14] LABS: GLUCOSE 117 mg/dL (70-99)
[2017-01-21 07:18] VITALS: BP 181/78
[2017-01-21 09:04] LABS: HEMATOCRIT 31.6 % (38.0-50.0); MCH 28.4 PG (29.0-34.0); MCHC 30.7 G/DL (30.0-36.0); MCV 92.4 FL (86-99); MEAN PLAT.VOLUME 9.4 uM^3 (9.0-12.4); PLATELET COUNT 300 K/uL (156-360); RBC DIS.WIDTH-CV 15.1 % (11.8-14.6); RBC DIS.WIDTH-SD 50.9 % (39-53); RED BLOOD COUNT 3.42 M/uL (4.00-5.50); WHITE BLOOD COUNT 10.2 K/uL (4.1-10.2)
[2017-01-21 09:04] LABS: GFR ESTIMATE (CALCULATED) 7 mL/min/
[2017-01-21 09:08] LABS: UREA NITROGEN (BUN) 79 mg/dL (9-23)
[2017-01-21 16:05] VITALS: BP 188/91
[2017-01-21 20:47] LABS: POINT-OF-CARE METER ID UU13113725
[2017-01-21 23:06] VITALS: BP 179/84
[2017-01-22 07:21] VITALS: BP 174/83
[2017-01-22] MEDS ORDERED: METHADONE10 MG PO (09:53)
[2017-01-22] MEDS ORDERED: DILAUDID4 MG PO (09:53)
[2017-01-22] MEDS ORDERED: PREDNISONE10 MG PO (09:53)
[2017-01-22] MEDS ORDERED: CEFTIN250 MG PO (09:53)
[2017-01-22 11:32] LABS: POINT-OF-CARE METER ID UU13113725
[2017-01-22 16:11] VITALS: BP 156/70
[2017-01-22 16:14] LABS: POINT-OF-CARE METER ID UU13113725
== END 2017-01-22 17:39 | DRG 183 ==
LOC: EME 20:28 → EDOF 01-16 03:36 → 5EAST 01-16 03:36
PROVIDERS: Hospitalist; Internal Medicine; Internal Medicine Nephrology
DX: S22.42XA Multiple fractures of ribs, left side, initial encounter for closed fracture (principal); J18.9 Pneumonia, unspecified organism; J96.11 Chronic respiratory failure with hypoxia; N18.6 End stage renal disease; I50.32 Chronic diastolic (congestive) heart failure; I13.2 Hypertensive heart and chronic kidney disease with heart failure and with stage 5 chronic kidney disease, or end stage renal disease; L89.153 Pressure ulcer of sacral region, stage 3; E11.22 Type 2 diabetes mellitus with diabetic chronic kidney disease; R91.1 Solitary pulmonary nodule; J44.9 Chronic obstructive pulmonary disease, unspecified; F32.9 Major depressive disorder, single episode, unspecified; D63.1 Anemia in chronic kidney disease; F41.9 Anxiety disorder, unspecified; G89.29 Other chronic pain; W19.XXXA Unspecified fall, initial encounter; M54.9 Dorsalgia, unspecified; Z87.891 Personal history of nicotine dependence; Z99.81 Dependence on supplemental oxygen; Z91.19 Patient's noncompliance with other medical treatment and regimen; Z99.2 Dependence on renal dialysis; Y92.009 Unspecified place in unspecified non-institutional (private) residence as the place of occurrence of the external cause; Y99.9 Unspecified external cause status
CPT/HCPCS: 70450; 71020; 71100; 71250; 74176; 80048; 80053; 81003; 82948; 83605; 83880; 84484; 85025; 85027; 87040; 87070; 87205; 87340; 87449; 87493; 87502; 93005; 94010; 94640; 94640 76; 94667; 94668; 94799; 99202; 99281; 99285; J0360; J0456; J0696; J1170; J1644; J1815; J1940; J2543; J2920; J3010; J3370; J7050; J7512

== ENCOUNTER 2017-02-04 09:15 | Inpatient (IN) | payer OTHER ==
[~2017-02-04] VITALS: Ht 165.1 cm; Wt 59.7 kg
[~2017-02-04 09:15] MED LIST changes: +CEFTIN250 MG PO; +RENAPLEX-D PO
[2017-02-04 09:51] LABS: EOSINOPHIL (%) 0.5 % (0-5); EOSINOPHIL COUNT 0.1 K/uL (0-0.3); HEMATOCRIT 26.8 % (38.0-50.0); IMMATURE GRANULOCYTE (%) 0.5 % (0.0-0.7); IMMATURE GRANULOCYTE COUNT 0.1 K/uL; INSTRUMENT ABS NEUTROPHIL CT 8.3 K/uL; LYMPHOCYTE COUNT 0.5 K/uL (1.0-2.8); MCH 29.3 PG (29.0-34.0); MCV 94.7 FL (86-99); MONOCYTE (%) 4.3 % (3-12); MONOCYTE COUNT 0.4 K/uL (0-0.8); NEUTROPHIL (%) 88.8 % (45-76); NEUTROPHIL COUNT 8.3 K/uL (1.8-6.4); RBC DIS.WIDTH-CV 15.7 % (11.8-14.6); RBC DIS.WIDTH-SD 54.8 % (39-53); RED BLOOD COUNT 2.83 M/uL (4.00-5.50); WHITE BLOOD COUNT 9.4 K/uL (4.1-10.2)
[2017-02-04 10:02] LABS: CHLORIDE 89 mEq/L (99-109); POTASSIUM 5.6 mEq/L (3.7-5.4); SODIUM 130 mEq/L (136-147)
[2017-02-04 10:04] LABS: GLUCOSE 111 mg/dL (70-99)
[2017-02-04 10:06] LABS: ANION GAP 11 MEQ/L (2-14)
[2017-02-04 10:08] LABS: GFR ESTIMATE (CALCULATED) 9 mL/min/
[2017-02-04 10:09] LABS: UREA NITROGEN (BUN) 65 mg/dL (9-23)
[2017-02-04] MEDS ORDERED: HUMALOG100 UNIT/1 SC (12:01)
[2017-02-04] MEDS ORDERED: TAMIFLU75 MG PO (12:04)
[2017-02-04] MEDS ORDERED: ASCORBIC ACID500 M3 PO (12:09)
[2017-02-04] MEDS ORDERED: ZINC SULFATE220 MG PO (12:10)
[2017-02-04] MEDS ORDERED: LASIX40 MG PO (12:11)
[2017-02-04] MEDS ORDERED: KEFLEX500 MG PO (12:14)
[2017-02-04] MEDS ORDERED: DOXYCYCLINE HY100 M3 PO (12:15)
[2017-02-04] MEDS ORDERED: DOXAZOSIN MESYLA4 MG PO (12:16)
[2017-02-04] MEDS ORDERED: LABETALOL HCL200 MG PO (12:17)
[2017-02-04] MEDS ORDERED: CARDURA4 MG PO (12:18)
[2017-02-04] MEDS ORDERED: VELTASSA8.4 GM PO (12:19)
[2017-02-04] MEDS ORDERED: ALPRAZOLAM0.5 MG PO (12:28)
[2017-02-04 12:48] LABS: MEAN PLAT.VOLUME 9.2 uM^3 (9.0-12.4); PLAT.SUFFICIENCY ADEQUATE; PLATELET CLUMPS PRESENT - PLATELET COUNT APPEARS ADQ.; PLATELET COUNT 146 K/uL (156-360)
[2017-02-04] MEDS ORDERED: DILAUDID4 MG PO (12:48)
[2017-02-04] MEDS ORDERED: METHADONE10 MG PO (12:51)
[2017-02-04 18:50] VITALS: BP 173/78
[2017-02-04 23:01] VITALS: BP 169/73
[2017-02-05 06:14] LABS: POINT-OF-CARE METER ID UU13113725
[2017-02-05 08:19] VITALS: BP 130/80
[2017-02-05 15:57] LABS: POINT-OF-CARE METER ID UU13113725
[2017-02-05 19:24] VITALS: BP 110/68
[2017-02-05 20:55] LABS: POINT-OF-CARE METER ID UU13113725
[2017-02-06 00:10] VITALS: BP 116/58
[2017-02-06 03:31] VITALS: BP 121/68
[2017-02-06 06:03] LABS: POINT-OF-CARE METER ID UU13113725
[2017-02-06 07:00] VITALS: BP 142/66
[2017-02-06 10:47] VITALS: BP 130/60
[2017-02-06 13:26] LABS: HEMATOCRIT 25.9 % (38.0-50.0); MCH 29.6 PG (29.0-34.0); MCHC 30.9 G/DL (30.0-36.0); MCV 95.9 FL (86-99); MEAN PLAT.VOLUME 9.5 uM^3 (9.0-12.4); PLATELET COUNT 137 K/uL (156-360); RBC DIS.WIDTH-CV 16.4 % (11.8-14.6); RBC DIS.WIDTH-SD 56.9 % (39-53)
[2017-02-06 13:43] LABS: ANION GAP 11 MEQ/L (2-14); CHLORIDE 90 MEQ/L (99-109); GLUCOSE 118 mg/dL (70-99); SAMPLE HEMOLYSIS CHECK 0; SAMPLE ICTERIC CHECK 0; SAMPLE LIPEMIA CHECK 0; SODIUM 134 MEQ/L (136-147); UREA NITROGEN (BUN) 45 mg/dL (9-23)
[2017-02-06 13:45] LABS: GFR ESTIMATE (CALCULATED) 12 mL/min/; POTASSIUM 4.4 MEQ/L (3.7-5.4)
[2017-02-06 16:01] LABS: EOSINOPHIL (%) 1.4 % (0-5); EOSINOPHIL COUNT 0.1 K/uL (0-0.3); IMMATURE GRANULOCYTE (%) 0.4 % (0.0-0.7); INSTRUMENT ABS NEUTROPHIL CT 5.7 K/uL; LYMPHOCYTE COUNT 0.8 K/uL (1.0-2.8); MONOCYTE (%) 4.8 % (3-12); MONOCYTE COUNT 0.3 K/uL (0-0.8); NEUTROPHIL (%) 81.6 % (45-76); NEUTROPHIL COUNT 5.7 K/uL (1.8-6.4); PLAT.SUFFICIENCY DECREASED
[2017-02-06 19:16] VITALS: BP 149/63
[2017-02-06 22:14] LABS: POINT-OF-CARE METER ID UU13113725
[2017-02-06 23:38] VITALS: BP 152/64
[2017-02-07 04:38] LABS: POINT-OF-CARE METER ID UU13113725
[2017-02-07 04:48] VITALS: BP 120/60
[2017-02-07 08:44] VITALS: BP 156/59
[2017-02-07 11:54] LABS: POINT-OF-CARE METER ID UU13113725
[2017-02-07 12:21] VITALS: BP 136/59
[2017-02-07 15:57] VITALS: BP 152/67
[2017-02-07 16:04] LABS: POINT-OF-CARE METER ID UU13113725
[2017-02-08] VITALS: BP 138/79
[2017-02-08 05:57] LABS: POINT-OF-CARE METER ID UU13113725
[2017-02-08 06:50] VITALS: BP 154/69
[2017-02-08 08:34] LABS: HEMATOCRIT 25.7 % (38.0-50.0); MCH 29.3 PG (29.0-34.0); MCHC 30.4 G/DL (30.0-36.0); MCV 96.6 FL (86-99); MEAN PLAT.VOLUME 9.3 uM^3 (9.0-12.4); PLATELET COUNT 123 K/uL (156-360); RBC DIS.WIDTH-CV 16.3 % (11.8-14.6); RBC DIS.WIDTH-SD 57.4 % (39-53); RED BLOOD COUNT 2.66 M/uL (4.00-5.50); WHITE BLOOD COUNT 6.9 K/uL (4.1-10.2)
[2017-02-08 08:43] LABS: EOSINOPHIL (%) 1.5 % (0-5); EOSINOPHIL COUNT 0.1 K/uL (0-0.3); IMMATURE GRANULOCYTE (%) 0.4 % (0.0-0.7); INSTRUMENT ABS NEUTROPHIL CT 5.3 K/uL; MONOCYTE COUNT 0.4 K/uL (0-0.8); NEUTROPHIL (%) 77.1 % (45-76); NEUTROPHIL COUNT 5.3 K/uL (1.8-6.4)
[2017-02-08 08:49] LABS: ANION GAP 8 MEQ/L (2-14); CHLORIDE 95 MEQ/L (99-109); GFR ESTIMATE (CALCULATED) 12 mL/min/; POTASSIUM 4.1 MEQ/L (3.7-5.4); SAMPLE HEMOLYSIS CHECK 0; SAMPLE ICTERIC CHECK 0; SAMPLE LIPEMIA CHECK 0; SODIUM 134 MEQ/L (136-147); UREA NITROGEN (BUN) 36 mg/dL (9-23)
[2017-02-08 08:50] LABS: GLUCOSE 182 mg/dL (70-99)
[2017-02-08 13:12] LABS: POINT-OF-CARE METER ID UU13113725
[2017-02-08 16:34] LABS: POINT-OF-CARE METER ID UU13113725
[2017-02-08 20:25] VITALS: BP 149/58
[2017-02-08 20:53] LABS: POINT-OF-CARE METER ID UU13113725
[2017-02-08 23:20] VITALS: BP 130/63
[2017-02-09 03:35] VITALS: BP 118/64
[2017-02-09 06:52] LABS: POINT-OF-CARE METER ID UU13113725
[2017-02-09 08:27] VITALS: BP 175/76
[2017-02-09 12:01] LABS: POINT-OF-CARE METER ID UU13113725
[2017-02-09 16:00] VITALS: BP 188/88
[2017-02-09 16:56] LABS: POINT-OF-CARE METER ID UU13113725
[2017-02-09 19:43] VITALS: BP 121/66
[2017-02-09 21:58] LABS: POINT-OF-CARE METER ID UU13113725
[2017-02-09 23:05] VITALS: BP 177/79
[2017-02-10 08:26] VITALS: BP 191/84
[2017-02-10 11:46] LABS: POINT-OF-CARE METER ID UU13113725
[2017-02-10 12:02] VITALS: BP 122/60
[2017-02-10 15:36] VITALS: BP 125/78
[2017-02-10 17:00] LABS: POINT-OF-CARE METER ID UU13113725
[2017-02-10 19:07] VITALS: BP 129/67
[2017-02-10 21:52] LABS: POINT-OF-CARE METER ID UU13113725
[2017-02-10 23:55] VITALS: BP 110/69
[2017-02-11 03:55] VITALS: BP 128/56
[2017-02-11 06:18] LABS: POINT-OF-CARE METER ID UU13113725
[2017-02-11 06:50] VITALS: BP 136/63
[2017-02-11 09:07] LABS: EOSINOPHIL COUNT 0.1 K/uL (0-0.3); IMMATURE GRANULOCYTE (%) 0.7 % (0.0-0.7); INSTRUMENT ABS NEUTROPHIL CT 4.4 K/uL; LYMPHOCYTE COUNT 0.8 K/uL (1.0-2.8); MCH 29.1 PG (29.0-34.0); MCHC 30.7 G/DL (30.0-36.0); MCV 94.7 FL (86-99); MEAN PLAT.VOLUME 9.5 uM^3 (9.0-12.4); MONOCYTE (%) 12.5 % (3-12); MONOCYTE COUNT 0.8 K/uL (0-0.8); NEUTROPHIL (%) 72.2 % (45-76); NEUTROPHIL COUNT 4.4 K/uL (1.8-6.4); PLATELET COUNT 169 K/uL (156-360); RBC DIS.WIDTH-CV 16.2 % (11.8-14.6); RBC DIS.WIDTH-SD 56.1 % (39-53); RED BLOOD COUNT 2.85 M/uL (4.00-5.50); WHITE BLOOD COUNT 6.1 K/uL (4.1-10.2)
[2017-02-11 09:09] LABS: ANION GAP 10 MEQ/L (2-14); CHLORIDE 97 MEQ/L (99-109); POTASSIUM 3.9 MEQ/L (3.7-5.4); SAMPLE HEMOLYSIS CHECK 0; SAMPLE ICTERIC CHECK 0; SAMPLE LIPEMIA CHECK 0; SODIUM 134 MEQ/L (136-147)
[2017-02-11 09:16] LABS: GLUCOSE 174 mg/dL (70-99); UREA NITROGEN (BUN) 50 mg/dL (9-23)
[2017-02-11 09:18] LABS: GFR ESTIMATE (CALCULATED) 8 mL/min/
[2017-02-11] MEDS ORDERED: CIPROFLOXACIN250 MG PO (14:37)
[2017-02-11] MEDS ORDERED: VANCOMYCIN HCL1 GM IV (14:38)
[2017-02-11] MEDS ORDERED: NIFEDIPINE ER30 MG PO (14:39)
[2017-02-11] MEDS ORDERED: DUONEB 2.5-0.5 M3 ML AEROSOL (14:42)
[2017-02-11] MEDS ORDERED: DILAUDID4 MG PO (14:44)
[2017-02-11] MEDS ORDERED: METHADONE10 MG PO (14:44)
[2017-02-11] MEDS ORDERED: ALPRAZOLAM0.5 MG PO (14:45)
[2017-02-11 15:05] VITALS: BP 132/60
== END 2017-02-11 17:03 | DRG 193 ==
LOC: EME → EDBD 09:15 → 5EAST 13:15 → EDOF 13:15 → 5EAST 18:30
PROVIDERS: Emergency Medicine; Internal Medicine; Internal Medicine Nephrology
PROC: 5A1D60Z (ICD-10-PCS; principal; 2017-02-04)
DX: J10.00 Influenza due to other identified influenza virus with unspecified type of pneumonia (principal); J44.0 Chronic obstructive pulmonary disease with (acute) lower respiratory infection; J18.9 Pneumonia, unspecified organism; Y95 Nosocomial condition; J44.1 Chronic obstructive pulmonary disease with (acute) exacerbation; J96.11 Chronic respiratory failure with hypoxia; I13.2 Hypertensive heart and chronic kidney disease with heart failure and with stage 5 chronic kidney disease, or end stage renal disease; I50.32 Chronic diastolic (congestive) heart failure; E11.22 Type 2 diabetes mellitus with diabetic chronic kidney disease; N18.6 End stage renal disease; E87.1 Hypo-osmolality and hyponatremia; E83.39 Other disorders of phosphorus metabolism; D63.1 Anemia in chronic kidney disease; F32.9 Major depressive disorder, single episode, unspecified; J45.909 Unspecified asthma, uncomplicated; K21.9 Gastro-esophageal reflux disease without esophagitis; Z99.2 Dependence on renal dialysis; Z79.4 Long term (current) use of insulin; Z98.1 Arthrodesis status; Z87.891 Personal history of nicotine dependence
CPT/HCPCS: 36415; 71010; 80048; 80069; 80202; 82565; 82948; 85025; 87040; 87502; 93005; 94640; 94640 76; 94760; 94799; 99202; 99281; 99285; J0881; J1270; J1644; J1815; J2543; J3370; J7050

== ENCOUNTER 2017-03-14 11:01 | Inpatient (IN) | payer OTHER ==
[~2017-03-14] VITALS: Ht 165.1 cm; Wt 54.5 kg
[~2017-03-14 11:01] MED LIST changes: +ASCORBIC ACID500 M3 PO; +CARDURA4 MG PO; +CIPROFLOXACIN250 MG PO; +DOXAZOSIN MESYLA4 MG PO; +DOXYCYCLINE HY100 M3 PO; +DUONEB 2.5-0.5 M3 ML AEROSOL; +TAMIFLU75 MG PO; +VANCOMYCIN HCL1 GM IV; +VELTASSA8.4 GM PO; +ZINC SULFATE220 MG PO
[2017-03-14 11:41] LABS: ANION GAP 13 MEQ/L (2-14); CHLORIDE 99 mEq/L (99-109); CREATININE 6.1 mg/dL (0.6-1.3); GLUCOSE 92 mg/dL (70-99); ISTAT DEVICE 359068; POTASSIUM > 6.0 mEq/L (3.7-5.4); SODIUM 134 mEq/L (136-147); UREA NITROGEN (BUN) 68 mg/dL (9-23)
[2017-03-14 12:12] LABS: BASOPHIL COUNT 0.1 K/uL (0-0.1); EOSINOPHIL COUNT 0.5 K/uL (0-0.3); HEMATOCRIT 35.5 % (38.0-50.0); IMMATURE GRANULOCYTE (%) 0.5 % (0.0-0.7); IMMATURE GRANULOCYTE COUNT 0.1 K/uL; INSTRUMENT ABS NEUTROPHIL CT 9.3 K/uL; LYMPHOCYTE COUNT 0.8 K/uL (1.0-2.8); MCH 28.7 PG (29.0-34.0); MCV 92.7 FL (86-99); MEAN PLAT.VOLUME 10.1 uM^3 (9.0-12.4); MONOCYTE (%) 6.4 % (3-12); MONOCYTE COUNT 0.7 K/uL (0-0.8); NEUTROPHIL (%) 81.6 % (45-76); NEUTROPHIL COUNT 9.3 K/uL (1.8-6.4); RBC DIS.WIDTH-CV 15.1 % (11.8-14.6); WHITE BLOOD COUNT 11.4 K/uL (4.1-10.2)
[2017-03-14 12:17] LABS: PLATELET COUNT 148 K/uL (156-360); RED BLOOD COUNT 3.83 M/uL (4.00-5.50)
[2017-03-14 12:22] LABS: CHLORIDE 101 mEq/L (99-109); POTASSIUM 5.4 mEq/L (3.7-5.4); SODIUM 137 mEq/L (136-147)
[2017-03-14 12:24] LABS: GLUCOSE 93 mg/dL (70-99)
[2017-03-14 12:25] LABS: ANION GAP 14 MEQ/L (2-14)
[2017-03-14 12:26] LABS: TOTAL BILIRUBIN 0.6 mg/dL (0.0-1.0)
[2017-03-14 12:27] LABS: ALKALINE PHOSPHATASE 172 IU/L (3-129); INTER. NORMALIZED RATIO 1.1; PROTHROMBIN TIME 10.9 (9.2-11.2)
[2017-03-14 12:28] LABS: GFR ESTIMATE (CALCULATED) 9 mL/min/
[2017-03-14 12:29] LABS: UREA NITROGEN (BUN) 43 mg/dL (9-23)
[2017-03-14 12:31] LABS: LIPASE 11 U/L (1.0-51.0)
[2017-03-14 12:34] LABS: TROP-I INTERPRETATION NEGATIVE; TROPONIN-I 0.02 ng/mL (0.0-0.30)
[2017-03-14 16:44] LABS: BASE EXCESS 6.5 mEq/L (-3 to +3); BICARBONATE 32.3 mEq/L (22-26); CARBOXY HGB 0.3 % (0-5); COMMENTS - BLOOD GASES A+C+; DEVICE NC; METHEMOGLOBIN 0.8 % (0-1.5); O2 FLOW 2 L/MIN; PCO2 51 mm Hg (35-45); PO2 66 mm Hg (80-100); SITE RR; pH 7.41 (7.35-7.45)
[2017-03-14 16:45] LABS: TOTAL RESP RATE 14 resp/min
[2017-03-14 18:26] VITALS: BP 175/74
[2017-03-14 21:50] LABS: POINT-OF-CARE METER ID UU14188577
[2017-03-15] VITALS (8 sets, daily range): BP systolic 114–167; BP diastolic 59–84
[2017-03-15 06:20] LABS: POINT-OF-CARE METER ID UU14188577
[2017-03-15 08:22] LABS: INTERNAL CONTROL VALID? YES
[2017-03-15 08:41] LABS: EOSINOPHIL (%) 0 % (0-5); HEMATOCRIT 31.1 % (38.0-50.0); IMMATURE GRANULOCYTE (%) 1.5 % (0.0-0.7); IMMATURE GRANULOCYTE COUNT 0.1 K/uL; LYMPHOCYTE COUNT 0.3 K/uL (1.0-2.8); MCH 29.6 PG (29.0-34.0); MCHC 32.2 G/DL (30.0-36.0); MEAN PLAT.VOLUME 10.4 uM^3 (9.0-12.4); MONOCYTE (%) 1.6 % (3-12); MONOCYTE COUNT 0.1 K/uL (0-0.8); NEUTROPHIL (%) 90.9 % (45-76); PLATELET COUNT 150 K/uL (156-360); RBC DIS.WIDTH-CV 14.9 % (11.8-14.6); RBC DIS.WIDTH-SD 49.6 % (39-53); RED BLOOD COUNT 3.38 M/uL (4.00-5.50); WHITE BLOOD COUNT 5.5 K/uL (4.1-10.2)
[2017-03-15 08:49] LABS: ANION GAP 11 MEQ/L (2-14); CHLORIDE 95 MEQ/L (99-109); POTASSIUM 5.1 MEQ/L (3.7-5.4); SAMPLE HEMOLYSIS CHECK 0; SAMPLE ICTERIC CHECK 0; SAMPLE LIPEMIA CHECK 0; SODIUM 131 MEQ/L (136-147)
[2017-03-15 08:55] LABS: GFR ESTIMATE (CALCULATED) 15 mL/min/; UREA NITROGEN (BUN) 34 mg/dL (9-23)
[2017-03-15 09:01] LABS: GLUCOSE 395 mg/dL (70-99)
[2017-03-15] MEDS ORDERED: LEVAQUIN750 MG PO (13:19)
[2017-03-15 17:12] LABS: POINT-OF-CARE METER ID UU14149397
[2017-03-16 04:37] VITALS: BP 156/73
[2017-03-16 06:36] LABS: POINT-OF-CARE METER ID UU14149397
[2017-03-16 07:45] VITALS: BP 155/74
[2017-03-16 08:38] LABS: ANION GAP 14 MEQ/L (2-14); CHLORIDE 94 MEQ/L (99-109); GFR ESTIMATE (CALCULATED) 15 mL/min/; GLUCOSE 199 mg/dL (70-99); POTASSIUM 4.7 MEQ/L (3.7-5.4); SAMPLE HEMOLYSIS CHECK 0; SAMPLE ICTERIC CHECK 0; SAMPLE LIPEMIA CHECK 0; SODIUM 134 MEQ/L (136-147); UREA NITROGEN (BUN) 39 mg/dL (9-23); VANCOMYCIN, TROUGH 16.2 MCG/ML (10-20)
[2017-03-16 08:40] LABS: HEMATOCRIT 33.6 % (38.0-50.0); MCH 29.2 PG (29.0-34.0); MCHC 32.1 G/DL (30.0-36.0); MCV 90.8 FL (86-99); PLATELET COUNT 180 K/uL (156-360); RBC DIS.WIDTH-CV 14.8 % (11.8-14.6); RBC DIS.WIDTH-SD 49.3 % (39-53); WHITE BLOOD COUNT 8.1 K/uL (4.1-10.2)
[2017-03-16 10:51] VITALS: BP 166/74
[2017-03-16 12:50] LABS: POINT-OF-CARE METER ID UU14188577
[2017-03-16] MEDS ORDERED: PREDNISONE20 MG PO (13:35)
[2017-03-16] MEDS ORDERED: ADVAIR HFA120 INHALA IH (13:35)
[2017-03-16] MEDS ORDERED: LEVAQUIN750 MG PO (13:35)
[2017-03-16 17:19] LABS: POINT-OF-CARE METER ID UU14149397
== END 2017-03-16 17:55 | disposition home or self-care (01) | DRG 189 ==
LOC: EME → EDBD 11:01 → EME 11:01 → 3EAST 13:40 → EDOF 13:40 → 3EAST 18:03
PROVIDERS: Emergency Medicine; Hospitalist; Internal Medicine Nephrology
PROC: 5A1D60Z (ICD-10-PCS; principal; 2017-03-14)
DX: J96.01 Acute respiratory failure with hypoxia (principal); J44.1 Chronic obstructive pulmonary disease with (acute) exacerbation; G93.41 Metabolic encephalopathy; J96.02 Acute respiratory failure with hypercapnia; N18.6 End stage renal disease; E11.8 Type 2 diabetes mellitus with unspecified complications; J18.9 Pneumonia, unspecified organism; E87.5 Hyperkalemia; J15.4 Pneumonia due to other streptococci; J44.0 Chronic obstructive pulmonary disease with (acute) lower respiratory infection; D63.8 Anemia in other chronic diseases classified elsewhere; Y95 Nosocomial condition; I13.2 Hypertensive heart and chronic kidney disease with heart failure and with stage 5 chronic kidney disease, or end stage renal disease; R41.82 Altered mental status, unspecified; R53.1 Weakness; E11.22 Type 2 diabetes mellitus with diabetic chronic kidney disease; E87.79 Other fluid overload; I50.9 Heart failure, unspecified; K21.9 Gastro-esophageal reflux disease without esophagitis; J90 Pleural effusion, not elsewhere classified; Z99.81 Dependence on supplemental oxygen; Z99.2 Dependence on renal dialysis; Z87.891 Personal history of nicotine dependence; Z91.19 Patient's noncompliance with other medical treatment and regimen
CPT/HCPCS: 36600; 71010; 71250; 80047; 80048; 80053; 80202; 82803; 82948; 83605; 83690; 84484; 84999; 85025; 85027; 85610; 85730; 87040; 87070; 87205; 87449; 87801; 93005; 94640; 94640 76; 94799; J1644; J1815; J2310; J2543; J2920; J3370; J7050; J7512

== ENCOUNTER 2017-04-03 15:53 | Observation (INO) | payer OTHER ==
[~2017-04-03] VITALS: Ht 165.1 cm; Wt 54.8 kg
[2017-04-03 16:32] LABS: EOSINOPHIL COUNT 0.2 K/uL (0-0.3); HEMATOCRIT 29.9 % (38.0-50.0); IMMATURE GRANULOCYTE (%) 0.4 % (0.0-0.7); INSTRUMENT ABS NEUTROPHIL CT 5.9 K/uL; LYMPHOCYTE COUNT 0.7 K/uL (1.0-2.8); MCH 27.7 PG (29.0-34.0); MCHC 31.4 G/DL (30.0-36.0); MCV 88.2 FL (86-99); MEAN PLAT.VOLUME 9.2 uM^3 (9.0-12.4); MONOCYTE (%) 10.5 % (3-12); MONOCYTE COUNT 0.8 K/uL (0-0.8); NEUTROPHIL COUNT 5.9 K/uL (1.8-6.4); PLATELET COUNT 202 K/uL (156-360); RBC DIS.WIDTH-SD 48.6 % (39-53); RED BLOOD COUNT 3.39 M/uL (4.00-5.50); WHITE BLOOD COUNT 7.7 K/uL (4.1-10.2)
[2017-04-03 16:41] LABS: CHLORIDE 97 mEq/L (99-109); POTASSIUM 4.3 mEq/L (3.7-5.4); SODIUM 134 mEq/L (136-147)
[2017-04-03 16:42] LABS: MAGNESIUM 2.3 mg/dL (1.3-2.7)
[2017-04-03 16:44] LABS: GLUCOSE 210 mg/dL (70-99)
[2017-04-03 16:45] LABS: ANION GAP 10 MEQ/L (2-14)
[2017-04-03 16:46] LABS: TOTAL BILIRUBIN 0.5 mg/dL (0.0-1.0)
[2017-04-03 16:47] LABS: ALKALINE PHOSPHATASE 174 IU/L (3-129); GFR ESTIMATE (CALCULATED) 16 mL/min/
[2017-04-03 16:48] LABS: UREA NITROGEN (BUN) 29 mg/dL (9-23)
[2017-04-03 16:52] LABS: BASE EXCESS 5.4 mEq/L (-3 to +3); BICARBONATE 31.4 mEq/L (22-26); CARBOXY HGB 0 % (0-5); METHEMOGLOBIN 0 % (0-1.5); PCO2 53 mm Hg (35-45); pH 7.38 (7.35-7.45)
[2017-04-03 16:53] LABS: COMMENTS - BLOOD GASES A+C+; DEVICE NC; O2 FLOW 2 L/MIN; PO2 84 mm Hg (80-100); SITE RR
[2017-04-03 16:53] LABS: TROP-I INTERPRETATION NEGATIVE; TROPONIN-I 0.01 ng/mL (0.0-0.30)
[2017-04-03] MEDS ORDERED: DILAUDID4 MG PO (19:08)
[2017-04-03] MEDS ORDERED: METHADONE10 MG PO (19:09)
[2017-04-03] MEDS ORDERED: ALPRAZOLAM0.5 MG PO (19:09)
[2017-04-03] MEDS ORDERED: NOVOLOG 10100 UNITS/ SC (19:10)
[2017-04-03] MEDS ORDERED: LANTUS 10100 UNITS/ SC (19:10)
[2017-04-03] MEDS ORDERED: FUROSEMIDE40 MG PO (19:11)
[2017-04-03] MEDS ORDERED: PROTONIX40 MG PO (19:11)
[2017-04-03] MEDS ORDERED: PROAIR HFA8.5 GM IH (19:13)
[2017-04-03 20:11] LABS: ADD MIUA? YES; BILIRUBIN NEGATIVE; BLOOD SMALL; COLOR YELLOW ((YELLOW)); GLUCOSE (STRIP) NEGATIVE; KETONES NEGATIVE; LEUKOCYTES NEGATIVE; NITRITE NEGATIVE; PROTEIN (STRIP) 100; SPECIFIC GRAVITY 1.009 (1.000-1.030); UROBILINOGEN 0.2 MG/DL (0.2-1.0)
[2017-04-03 20:39] LABS: BACTERIA NONE SEEN /HPF; EPITHELIAL CELLS RARE /HPF; MUCUS NONE SEEN /LPF; RED BLOOD CELLS 0-5 /HPF (0-5); UCUL ADDED? NO; WHITE BLOOD CELLS 0-5 /HPF (0-5)
[2017-04-03 23:55] LABS: TROP-I INTERPRETATION NEGATIVE; TROPONIN-I 0.02 ng/mL (0.0-0.30)
[2017-04-04 00:35] VITALS: BP 165/73
[2017-04-04 04:45] VITALS: BP 176/77
[2017-04-04 05:10] LABS: AMPHETAMINES QUANT VALUE 0 NG/ML; BARBITUATES QUANT VALUE 0 NG/ML; BENZODIAZEPINES, URINE SCREEN POSITIVE (200 ng/mL); MARIJUANA QUANT VALUE 0 NG/ML; PHENCYCLIDINE QUANT VALUE 0 NG/ML
[2017-04-04 06:08] LABS: HEMATOCRIT 33.9 % (38.0-50.0); MCH 27.4 PG (29.0-34.0); MCHC 30.4 G/DL (30.0-36.0); MCV 90.2 FL (86-99); MEAN PLAT.VOLUME 9.6 uM^3 (9.0-12.4); PLATELET COUNT 250 K/uL (156-360); RBC DIS.WIDTH-CV 14.8 % (11.8-14.6); RBC DIS.WIDTH-SD 49.1 % (39-53); RED BLOOD COUNT 3.76 M/uL (4.00-5.50); WHITE BLOOD COUNT 7.1 K/uL (4.1-10.2)
[2017-04-04 06:33] LABS: ANION GAP 15 MEQ/L (2-14); CHLORIDE 96 MEQ/L (99-109); POTASSIUM 4.8 MEQ/L (3.7-5.4); SAMPLE HEMOLYSIS CHECK 0; SAMPLE ICTERIC CHECK 0; SAMPLE LIPEMIA CHECK 0; SODIUM 137 MEQ/L (136-147)
[2017-04-04 06:39] LABS: GFR ESTIMATE (CALCULATED) 13 mL/min/; GLUCOSE 165 mg/dL (70-99); UREA NITROGEN (BUN) 36 mg/dL (9-23)
[2017-04-04 06:44] LABS: TROP-I INTERPRETATION NEGATIVE; TROPONIN-I 0.03 ng/mL (0.0-0.30)
[2017-04-04 07:36] VITALS: BP 160/66
[2017-04-04 08:38] LABS: POINT-OF-CARE METER ID UU14162513
[2017-04-04 12:00] VITALS: BP 160/68
[2017-04-04] MEDS ORDERED: DOXYCYCLINE HY100 MG PO (12:10)
== END 2017-04-04 15:56 | disposition home health service (06) ==
LOC: EME 15:53 → EDOF 21:55 → 5WEST 21:55 → EDOF 21:55 → 5WEST 04-04 00:05
PROVIDERS: Emergency Medicine; Hospitalist
DX: R41.82 Altered mental status, unspecified (principal); L03.116 Cellulitis of left lower limb; I13.2 Hypertensive heart and chronic kidney disease with heart failure and with stage 5 chronic kidney disease, or end stage renal disease; I50.9 Heart failure, unspecified; N18.6 End stage renal disease; Z99.2 Dependence on renal dialysis; R07.9 Chest pain, unspecified; G89.4 Chronic pain syndrome; J44.9 Chronic obstructive pulmonary disease, unspecified; J45.909 Unspecified asthma, uncomplicated; M54.9 Dorsalgia, unspecified; E78.5 Hyperlipidemia, unspecified; E11.9 Type 2 diabetes mellitus without complications; G93.41 Metabolic encephalopathy; R07.89 Other chest pain; D64.9 Anemia, unspecified
CPT/HCPCS: 36600; 70450; 71010; 80048; 80053; 80306 90; 81003; 82803; 82948; 83735; 84484; 85025; 85027; 93005; 93971; 94640; 94640 76; 94799; 99202; 99281; 99285; G0378; J0690

== ENCOUNTER 2017-04-23 15:03 | Emergency (ER) | payer OTHER ==
[~2017-04-23] VITALS: Ht 170.2 cm; Wt 61.0 kg
[2017-04-23 15:36] LABS: HEMATOCRIT 43.3 % (38.0-50.0); MCH 26.5 PG (29.0-34.0); MCHC 30.3 G/DL (30.0-36.0); MCV 87.5 FL (86-99); MEAN PLAT.VOLUME 9.7 uM^3 (9.0-12.4); PLATELET COUNT 178 K/uL (156-360); RBC DIS.WIDTH-CV 15.7 % (11.8-14.6); RED BLOOD COUNT 4.95 M/uL (4.00-5.50); WHITE BLOOD COUNT 7.7 K/uL (4.1-10.2)
[2017-04-23 15:48] LABS: CHLORIDE 98 mEq/L (99-109); POTASSIUM 5.3 mEq/L (3.7-5.4); SODIUM 136 mEq/L (136-147)
[2017-04-23 15:50] LABS: GLUCOSE 154 mg/dL (70-99)
[2017-04-23 15:52] LABS: ANION GAP 11 MEQ/L (2-14); TOTAL BILIRUBIN 0.7 mg/dL (0.0-1.0)
[2017-04-23 15:54] LABS: ALKALINE PHOSPHATASE 206 IU/L (3-129); GFR ESTIMATE (CALCULATED) 10 mL/min/
[2017-04-23 15:55] LABS: UREA NITROGEN (BUN) 53 mg/dL (9-23)
[2017-04-23 16:39] LABS: ADD MIUA? YES; BILIRUBIN NEGATIVE; BLOOD NEGATIVE; COLOR YELLOW ((YELLOW)); GLUCOSE (STRIP) 50; KETONES NEGATIVE; LEUKOCYTES NEGATIVE; NITRITE NEGATIVE; PROTEIN (STRIP) >=500; UROBILINOGEN 0.2 MG/DL (0.2-1.0)
[2017-04-23 16:42] LABS: BACTERIA NONE SEEN /HPF; EPITHELIAL CELLS RARE /HPF; MUCUS NONE SEEN /LPF; RED BLOOD CELLS 0-5 /HPF (0-5); UCUL ADDED? NO; WHITE BLOOD CELLS 0-5 /HPF (0-5)
[2017-04-23] MEDS ORDERED: ZOFRAN ODT4 MG PO (19:16)
[2017-04-23 19:35] VITALS: BP 137/74
== END 2017-04-23 19:36 | disposition home or self-care (01) ==
LOC: EME 15:03
DX: R11.2 Nausea with vomiting, unspecified (principal); I13.0 Hypertensive heart and chronic kidney disease with heart failure and stage 1 through stage 4 chronic kidney disease, or unspecified chronic kidney disease; N18.9 Chronic kidney disease, unspecified; I50.9 Heart failure, unspecified; Z99.2 Dependence on renal dialysis; K21.9 Gastro-esophageal reflux disease without esophagitis; J44.9 Chronic obstructive pulmonary disease, unspecified; E11.22 Type 2 diabetes mellitus with diabetic chronic kidney disease; Z79.4 Long term (current) use of insulin; Z87.891 Personal history of nicotine dependence
CPT/HCPCS: 80053; 81003; 85027; 99281; 99285; J2405; J2765

== ENCOUNTER 2017-05-20 11:58 | Observation (INO) | payer OTHER ==
[~2017-05-20] VITALS: Ht 165.1 cm; Wt 51.4 kg
[~2017-05-20 11:58] MED LIST changes: +ZOFRAN ODT4 MG PO
[2017-05-20 14:26] LABS: HEMATOCRIT 47.5 % (38.0-50.0); MCH 26.9 PG (29.0-34.0); MCHC 30.9 G/DL (30.0-36.0); MCV 86.8 FL (86-99); MEAN PLAT.VOLUME 10.7 uM^3 (9.0-12.4); PLATELET COUNT 163 K/uL (156-360); RBC DIS.WIDTH-CV 15.1 % (11.8-14.6); RBC DIS.WIDTH-SD 47.8 % (39-53); RED BLOOD COUNT 5.47 M/uL (4.00-5.50); WHITE BLOOD COUNT 10.4 K/uL (4.1-10.2)
[2017-05-20 14:33] LABS: PROTHROMBIN TIME 10.8 SEC (10.2-12.9)
[2017-05-20 14:36] LABS: PTT 30.9 SEC (25-37)
[2017-05-20 14:52] LABS: CHLORIDE 96 mEq/L (99-109); SODIUM 135 mEq/L (136-147)
[2017-05-20 14:54] LABS: GLUCOSE 116 mg/dL (70-99)
[2017-05-20 14:55] LABS: ANION GAP 12 MEQ/L (2-14)
[2017-05-20 14:56] LABS: TROP-I INTERPRETATION NEGATIVE; TROPONIN-I 0.03 ng/mL (0.0-0.30)
[2017-05-20 14:58] LABS: GFR ESTIMATE (CALCULATED) 8 mL/min/; UREA NITROGEN (BUN) 71 mg/dL (9-23)
[2017-05-20 15:01] LABS: POTASSIUM 7.7 mEq/L (3.7-5.4)
[2017-05-20] MEDS ORDERED: ALPRAZOLAM1 MG PO (17:21)
[2017-05-20] MEDS ORDERED: AMLODIPINE BESY10 MG PO (17:22)
[2017-05-20 18:25] LABS: POINT-OF-CARE METER ID UU13113681; POINT-OF-CARE USER ID DROKMM72
[2017-05-20 19:14] LABS: TROP-I INTERPRETATION NEGATIVE; TROPONIN-I 0.02 ng/mL (0.0-0.30)
[2017-05-20 23:02] VITALS: BP 180/83
[2017-05-20 23:54] VITALS: BP 192/84
[2017-05-21 01:30] LABS: TROP-I INTERPRETATION NEGATIVE; TROPONIN-I 0.01 ng/mL (0.0-0.30)
[2017-05-21 03:45] VITALS: BP 138/78
[2017-05-21 06:59] LABS: TROP-I INTERPRETATION NEGATIVE; TROPONIN-I 0.03 ng/mL (0.0-0.30)
[2017-05-21 07:09] LABS: ANION GAP 8 MEQ/L (2-14); CHLORIDE 94 MEQ/L (99-109); SAMPLE HEMOLYSIS CHECK 0; SAMPLE ICTERIC CHECK 0; SAMPLE LIPEMIA CHECK 0; SODIUM 137 MEQ/L (136-147)
[2017-05-21 07:12] LABS: HEMATOCRIT 39.1 % (38.0-50.0); MCH 28.1 PG (29.0-34.0); MCV 87.9 FL (86-99); MEAN PLAT.VOLUME 10.2 uM^3 (9.0-12.4); PLATELET COUNT 139 K/uL (156-360); RBC DIS.WIDTH-CV 15.2 % (11.8-14.6); RED BLOOD COUNT 4.45 M/uL (4.00-5.50); WHITE BLOOD COUNT 6.9 K/uL (4.1-10.2)
[2017-05-21 07:18] LABS: GFR ESTIMATE (CALCULATED) 16 mL/min/; GLUCOSE 215 mg/dL (70-99); POTASSIUM 4.7 MEQ/L (3.7-5.4); UREA NITROGEN (BUN) 28 mg/dL (9-23)
[2017-05-21 08:12] LABS: POINT-OF-CARE METER ID UU13113831
[2017-05-21 08:48] VITALS: BP 154/67
[2017-05-21 11:23] VITALS: BP 130/63
[2017-05-21 12:24] LABS: POINT-OF-CARE METER ID UU14162513
[2017-05-21 15:42] VITALS: BP 128/64
[2017-05-21] MEDS ORDERED: LOPRESSOR25 MG PO (16:15)
== END 2017-05-21 17:37 | disposition home or self-care (01) ==
LOC: EME 11:58 → EDOF 21:27 → 5WEST 21:27 → EDOF 21:27 → ENRESERV 21:31 → 5WEST 22:45
PROVIDERS: Emergency Medicine; Hospitalist
PROC: 5A1D00Z (ICD-10-PCS; principal; 2017-05-20)
DX: R07.9 Chest pain, unspecified (principal); E87.5 Hyperkalemia; I16.0 Hypertensive urgency; I13.2 Hypertensive heart and chronic kidney disease with heart failure and with stage 5 chronic kidney disease, or end stage renal disease; N18.6 End stage renal disease; I50.9 Heart failure, unspecified; E11.22 Type 2 diabetes mellitus with diabetic chronic kidney disease; J44.9 Chronic obstructive pulmonary disease, unspecified; M54.5 Low back pain; E78.5 Hyperlipidemia, unspecified; N31.9 Neuromuscular dysfunction of bladder, unspecified; N40.0 Benign prostatic hyperplasia without lower urinary tract symptoms; D64.9 Anemia, unspecified; F41.9 Anxiety disorder, unspecified; G89.29 Other chronic pain; Z99.2 Dependence on renal dialysis; Z98.1 Arthrodesis status; Z90.81 Acquired absence of spleen; Z79.82 Long term (current) use of aspirin
CPT/HCPCS: 71020; 72128; 72131; 80048; 82948; 84484; 85027; 85610; 85730; 93005; 94640; 94640 76; 99202; G0378; G8978 GP CJ; G8979 GP CH; G8987 GO CI; G8988 GO CH; J1644; J1815; J2270; J7042

== ENCOUNTER 2017-06-22 14:27 | Inpatient (IN) | payer OTHER ==
[~2017-06-22] VITALS: Ht 165.1 cm; Wt 59.3 kg
[~2017-06-22 14:27] MED LIST changes: +LOPRESSOR25 MG PO
[2017-06-22 14:40] LABS: CREATININE 4.5 mg/dL (0.6-1.3); POTASSIUM 5.3 mEq/L (3.7-5.4)
[2017-06-22 14:41] LABS: BASOPHIL COUNT 0.1 K/uL (0-0.1); EOSINOPHIL (%) 4.4 % (0-5); EOSINOPHIL COUNT 0.9 K/uL (0-0.3); HEMATOCRIT 35.4 % (38.0-50.0); IMMATURE GRANULOCYTE (%) 3.8 % (0.0-0.7); IMMATURE GRANULOCYTE COUNT 0.8 K/uL; INSTRUMENT ABS NEUTROPHIL CT 11.4 K/uL; LYMPHOCYTE COUNT 5.8 K/uL (1.0-2.8); MCH 27.7 PG (29.0-34.0); MCHC 29.7 G/DL (30.0-36.0); MCV 93.4 FL (86-99); MEAN PLAT.VOLUME 10.1 uM^3 (9.0-12.4); MONOCYTE COUNT 1.4 K/uL (0-0.8); NEUTROPHIL (%) 55.8 % (45-76); NEUTROPHIL COUNT 11.4 K/uL (1.8-6.4); NRBC (%) 0.2 /100 WBC (0-0); PLATELET COUNT 256 K/uL (156-360); RBC DIS.WIDTH-CV 17.5 % (11.8-14.6); RBC DIS.WIDTH-SD 54.6 % (39-53); RED BLOOD COUNT 3.79 M/uL (4.00-5.50); WHITE BLOOD COUNT 20.4 K/uL (4.1-10.2)
[2017-06-22 14:43] LABS: PROTHROMBIN TIME 10.9 SEC (10.2-12.9)
[2017-06-22 14:46] LABS: AMYLASE 94 IU/L (1-118); CHLORIDE 97 mEq/L (99-109); POTASSIUM 5.4 mEq/L (3.7-5.4); PTT 28.6 SEC (25-37); SODIUM 137 mEq/L (136-147)
[2017-06-22 14:48] LABS: GLUCOSE 284 mg/dL (70-99)
[2017-06-22 14:49] LABS: ANION GAP 14 MEQ/L (2-14)
[2017-06-22 14:51] LABS: SERUM ETHYL ALCOHOL < 10 mg/dL
[2017-06-22 14:52] LABS: GFR ESTIMATE (CALCULATED) 13 mL/min/
[2017-06-22 14:53] LABS: UREA NITROGEN (BUN) 31 mg/dL (9-23)
[2017-06-22 14:55] LABS: LIPASE 55 U/L (1.0-51.0)
[2017-06-22 15:00] LABS: TROP-I INTERPRETATION NEGATIVE; TROPONIN-I 0.02 ng/mL (0.0-0.30)
[2017-06-22 15:31] LABS: BASE EXCESS 7.1 mEq/L (-3 to +3); BICARBONATE 34.8 mEq/L (22-26); CARBOXY HGB 0 % (0-5); METHEMOGLOBIN 0 % (0-1.5); pH 7.33 (7.35-7.45)
[2017-06-22 15:33] LABS: COMMENTS - BLOOD GASES A+C+; DEVICE VENT; FI02 100 %; MECHANICAL RATE 16 resp/min; MODE A/C; PCO2 66 mm Hg (35-45); PEEP 5 CM/H20; PO2 398 mm Hg (80-100); SITE RR; TIDAL VOLUME 500 ML; TOTAL RESP RATE 16 resp/min
[2017-06-22 15:42] LABS: ADD MIUA? YES; BILIRUBIN NEGATIVE; BLOOD SMALL; COLOR YELLOW ((YELLOW)); GLUCOSE (STRIP) 150; KETONES NEGATIVE; LEUKOCYTES MODERATE; NITRITE NEGATIVE; PROTEIN (STRIP) 100; SPECIFIC GRAVITY 1.015 (1.000-1.030); UROBILINOGEN 0.2 MG/DL (0.2-1.0)
[2017-06-22 15:51] LABS: AMPHETAMINE NEGATIVE (500 ng/mL); BARBITURATES NEGATIVE (200 ng/mL); BENZODIAZEPINES NEGATIVE (150 ng/mL); COCAINE NEGATIVE (150 ng/mL); INTERNAL CONTROLS VALID? YES; METHADONE NEGATIVE (200 ng/mL); METHAMPHETAMINE NEGATIVE (500 ng/mL); OPIATES (MORPHINE) PRESUMPTIVE POSITIVE (100 ng/mL); OXYCODONE NEGATIVE (100 ng/mL); PHENCYCLIDINE NEGATIVE (25 ng/mL); PROPOXYPHENE NEGATIVE (300 ng/mL); THC CANNABINOIDS NEGATIVE (50 ng/mL); TRICYCLIC ANTIDEPRESSANTS NEGATIVE (300 ng/mL)
[2017-06-22 15:52] LABS: ADD MEDTOX COMMENT Y
[2017-06-22 16:11] LABS: EPITHELIAL CELLS RARE /HPF; MUCUS NONE SEEN /LPF; RED BLOOD CELLS 0-5 /HPF (0-5)
[2017-06-22 16:12] LABS: BACTERIA 1+ /HPF; UCUL ADDED? YES
[2017-06-22 17:20] LABS: CHLORIDE 106 mEq/L (99-109); SODIUM 142 mEq/L (136-147)
[2017-06-22 17:23] LABS: GLUCOSE 251 mg/dL (70-99)
[2017-06-22 17:24] LABS: ANION GAP 9 MEQ/L (2-14)
[2017-06-22 17:25] LABS: TOTAL BILIRUBIN 0.4 mg/dL (0.0-1.0)
[2017-06-22 17:26] LABS: ALKALINE PHOSPHATASE 137 IU/L (3-129); GFR ESTIMATE (CALCULATED) 15 mL/min/
[2017-06-22 17:27] LABS: UREA NITROGEN (BUN) 32 mg/dL (9-23)
[2017-06-22 17:42] LABS: BASE EXCESS 5.7 mEq/L (-3 to +3); BICARBONATE 32.9 mEq/L (22-26); CARBOXY HGB 0 % (0-5); METHEMOGLOBIN 0 % (0-1.5); pH 7.34 (7.35-7.45)
[2017-06-22 17:43] LABS: COMMENTS - BLOOD GASES A+C+; DEVICE VENT; FI02 100 %; MECHANICAL RATE 20 resp/min; MODE A/C; PCO2 61 mm Hg (35-45); PEEP 5 CM/H20; PO2 483 mm Hg (80-100); SITE RR; TIDAL VOLUME 500 ML; TOTAL RESP RATE 20 resp/min
[2017-06-22 18:16] VITALS: BP 106/67
[2017-06-22 19:00] VITALS: BP 163/71
[2017-06-22 19:33] LABS: METH RESISTANT S AUREUS PCR NEGATIVE (NEGATIVE); PROBE CHECK PASS; SPECIMEN PROCESSING CONTROL PASS
[2017-06-22 20:00] VITALS: BP 103/59
[2017-06-22 21:00] VITALS: BP 141/76
[2017-06-22 22:00] VITALS: BP 136/67
[2017-06-22 23:00] VITALS: BP 113/73
[2017-06-23] VITALS (12 sets, daily range): BP systolic 92–143; BP diastolic 43–78
[2017-06-23 05:51] LABS: HEMATOCRIT 33.5 % (38.0-50.0); MCH 28.1 PG (29.0-34.0); MCHC 30.7 G/DL (30.0-36.0); MCV 91.3 FL (86-99); MEAN PLAT.VOLUME 11.1 uM^3 (9.0-12.4); PLATELET COUNT 211 K/uL (156-360); RBC DIS.WIDTH-CV 17.9 % (11.8-14.6); RBC DIS.WIDTH-SD 54.4 % (39-53); RED BLOOD COUNT 3.67 M/uL (4.00-5.50); WHITE BLOOD COUNT 15.7 K/uL (4.1-10.2)
[2017-06-23 06:26] LABS: ANION GAP 11 MEQ/L (2-14); CHLORIDE 100 MEQ/L (99-109); GFR ESTIMATE (CALCULATED) 11 mL/min/; GLUCOSE 159 mg/dL (70-99); SAMPLE HEMOLYSIS CHECK 0; SAMPLE ICTERIC CHECK 0; SAMPLE LIPEMIA CHECK 0; SODIUM 141 MEQ/L (136-147); UREA NITROGEN (BUN) 46 mg/dL (9-23)
[2017-06-23 17:29] LABS: POINT-OF-CARE METER ID UU14162636
[2017-06-24] VITALS (24 sets, daily range): BP systolic 85–143; BP diastolic 54–81
[2017-06-24 01:08] LABS: CHLORIDE 98 mEq/L (99-109); SODIUM 141 mEq/L (136-147)
[2017-06-24 01:09] LABS: GLUCOSE 121 mg/dL (70-99)
[2017-06-24 01:11] LABS: ANION GAP 11 MEQ/L (2-14)
[2017-06-24 01:17] LABS: GFR ESTIMATE (CALCULATED) 18 mL/min/; POTASSIUM 5.2 mEq/L (3.7-5.4); UREA NITROGEN (BUN) 22 mg/dL (9-23)
[2017-06-24 05:41] LABS: EOSINOPHIL (%) 3.3 % (0-5); EOSINOPHIL COUNT 0.4 K/uL (0-0.3); HEMATOCRIT 32.5 % (38.0-50.0); IMMATURE GRANULOCYTE (%) 0.4 % (0.0-0.7); IMMATURE GRANULOCYTE COUNT 0.1 K/uL; INSTRUMENT ABS NEUTROPHIL CT 9.3 K/uL; MCH 27.4 PG (29.0-34.0); MCHC 29.8 G/DL (30.0-36.0); MCV 91.8 FL (86-99); MEAN PLAT.VOLUME 10.5 uM^3 (9.0-12.4); MONOCYTE (%) 7.7 % (3-12); MONOCYTE COUNT 0.9 K/uL (0-0.8); NEUTROPHIL (%) 79.9 % (45-76); NEUTROPHIL COUNT 9.3 K/uL (1.8-6.4); PLATELET COUNT 150 K/uL (156-360); RBC DIS.WIDTH-CV 17.8 % (11.8-14.6); RBC DIS.WIDTH-SD 56.1 % (39-53); RED BLOOD COUNT 3.54 M/uL (4.00-5.50); WHITE BLOOD COUNT 11.6 K/uL (4.1-10.2)
[2017-06-24 06:10] LABS: ANION GAP 10 MEQ/L (2-14); CHLORIDE 96 MEQ/L (99-109); GFR ESTIMATE (CALCULATED) 17 mL/min/; GLUCOSE 139 mg/dL (70-99); POTASSIUM 4.8 MEQ/L (3.7-5.4); SAMPLE HEMOLYSIS CHECK 0; SAMPLE ICTERIC CHECK 0; SAMPLE LIPEMIA CHECK 0; SODIUM 138 MEQ/L (136-147); UREA NITROGEN (BUN) 25 mg/dL (9-23)
[2017-06-24 06:52] LABS: POINT-OF-CARE METER ID UU14162636
[2017-06-24 11:10] LABS: HBSG INDEX 0.17
[2017-06-24 11:11] LABS: AHBS INDEX 0.28; HEPATITIS B SURFACE ANTIBODY Nonreactive
[2017-06-24 11:40] LABS: POINT-OF-CARE METER ID UU14162636
[2017-06-24 16:09] LABS: POINT-OF-CARE METER ID UU13113731
[2017-06-25] VITALS (22 sets, daily range): BP systolic 93–137; BP diastolic 51–85
[2017-06-25 07:21] LABS: POINT-OF-CARE METER ID UU13113731
[2017-06-25 07:29] LABS: EOSINOPHIL (%) 4.1 % (0-5); EOSINOPHIL COUNT 0.4 K/uL (0-0.3); HEMATOCRIT 28.2 % (38.0-50.0); IMMATURE GRANULOCYTE (%) 0.4 % (0.0-0.7); INSTRUMENT ABS NEUTROPHIL CT 6.5 K/uL; LYMPHOCYTE COUNT 0.8 K/uL (1.0-2.8); MCH 28.5 PG (29.0-34.0); MCHC 30.9 G/DL (30.0-36.0); MCV 92.5 FL (86-99); MEAN PLAT.VOLUME 10.8 uM^3 (9.0-12.4); MONOCYTE (%) 10.6 % (3-12); MONOCYTE COUNT 0.9 K/uL (0-0.8); NEUTROPHIL (%) 75.9 % (45-76); NEUTROPHIL COUNT 6.5 K/uL (1.8-6.4); PLATELET COUNT 121 K/uL (156-360); RBC DIS.WIDTH-CV 17.8 % (11.8-14.6); RBC DIS.WIDTH-SD 56.5 % (39-53); RED BLOOD COUNT 3.05 M/uL (4.00-5.50); WHITE BLOOD COUNT 8.5 K/uL (4.1-10.2)
[2017-06-25 07:46] LABS: ANION GAP 9 MEQ/L (2-14); CHLORIDE 100 MEQ/L (99-109); MAGNESIUM 2.1 mg/dl (1.3-2.7); POTASSIUM 4.3 MEQ/L (3.7-5.4); SAMPLE HEMOLYSIS CHECK 0; SAMPLE ICTERIC CHECK 0; SAMPLE LIPEMIA CHECK 0; SODIUM 140 MEQ/L (136-147)
[2017-06-25 07:51] LABS: GFR ESTIMATE (CALCULATED) 19 mL/min/; GLUCOSE 142 mg/dL (70-99); UREA NITROGEN (BUN) 21 mg/dL (9-23)
[2017-06-25 08:25] LABS: VANCOMYCIN, TROUGH 17.9 MCG/ML (10-20)
[2017-06-25 10:56] LABS: BASE EXCESS 6.6 mEq/L (-3 to +3); BICARBONATE 34.4 mEq/L (22-26); CARBOXY HGB 0 % (0-5); METHEMOGLOBIN 0 % (0-1.5); PCO2 70 mm Hg (35-45); PO2 64 mm Hg (80-100)
[2017-06-25 10:57] LABS: COMMENTS - BLOOD GASES A+C+; DEVICE NC; O2 FLOW 3 L/MIN; SITE RR
[2017-06-25 12:14] LABS: POINT-OF-CARE METER ID UU13113731
[2017-06-25] MEDS ORDERED: CALCIUM ACETAT667 MG PO ×2 (16:55→16:56)
[2017-06-25] MEDS ORDERED: LABETALOL HCL200 MG PO (16:58)
[2017-06-26] VITALS (24 sets, daily range): BP systolic 109–160; BP diastolic 57–79
[2017-06-26 05:28] LABS: EOSINOPHIL (%) 3.4 % (0-5); EOSINOPHIL COUNT 0.2 K/uL (0-0.3); HEMATOCRIT 28.5 % (38.0-50.0); IMMATURE GRANULOCYTE (%) 0.3 % (0.0-0.7); INSTRUMENT ABS NEUTROPHIL CT 5.1 K/uL; LYMPHOCYTE COUNT 0.6 K/uL (1.0-2.8); MCH 28.3 PG (29.0-34.0); MCHC 29.8 G/DL (30.0-36.0); MEAN PLAT.VOLUME 11.2 uM^3 (9.0-12.4); MONOCYTE (%) 12.1 % (3-12); MONOCYTE COUNT 0.8 K/uL (0-0.8); NEUTROPHIL (%) 75.8 % (45-76); NEUTROPHIL COUNT 5.1 K/uL (1.8-6.4); PLATELET COUNT 110 K/uL (156-360); RBC DIS.WIDTH-CV 17.3 % (11.8-14.6); RBC DIS.WIDTH-SD 58.4 % (39-53); WHITE BLOOD COUNT 6.8 K/uL (4.1-10.2)
[2017-06-26 06:43] LABS: ANION GAP 13 MEQ/L (2-14); CHLORIDE 100 MEQ/L (99-109); GFR ESTIMATE (CALCULATED) 12 mL/min/; MAGNESIUM 2.2 mg/dl (1.3-2.7); POTASSIUM 4.5 MEQ/L (3.7-5.4); SAMPLE HEMOLYSIS CHECK 0; SAMPLE ICTERIC CHECK 0; SAMPLE LIPEMIA CHECK 0; SODIUM 141 MEQ/L (136-147); UREA NITROGEN (BUN) 30 mg/dL (9-23)
[2017-06-26 06:47] LABS: GLUCOSE 97 mg/dL (70-99)
[2017-06-26 12:56] LABS: POINT-OF-CARE METER ID UU14174217
[2017-06-26 17:54] LABS: POINT-OF-CARE METER ID UU14174217
[2017-06-26 22:17] LABS: POINT-OF-CARE METER ID UU14208751
[2017-06-27] VITALS (14 sets, daily range): BP systolic 111–149; BP diastolic 61–76
[2017-06-27 08:17] LABS: POINT-OF-CARE METER ID UU13113731
[2017-06-27 10:57] LABS: HDL CHOLESTEROL 50 MG/DL (Desirable>=40); LDL CHOLESTEROL 93 mg/dL (Desirable<100); NON-HDL CHOLESTEROL 123 mg/dL (Desirable<160); TOTAL CHOLESTEROL 173 mg/dL (Desirable<200); TRIGLYCERIDES 151 MG/DL (Normal: <150); TROP-I INTERPRETATION NEGATIVE; TROPONIN-I 0.06 ng/mL (0.0-0.30)
[2017-06-27 11:59] LABS: POINT-OF-CARE METER ID UU13113731
[2017-06-27 17:51] LABS: POINT-OF-CARE METER ID UU13113803
[2017-06-27 21:31] LABS: POINT-OF-CARE METER ID UU14162636
[2017-06-28] VITALS: BP 116/67
[2017-06-28 04:00] VITALS: BP 140/71
[2017-06-28 05:41] LABS: EOSINOPHIL (%) 5.2 % (0-5); EOSINOPHIL COUNT 0.4 K/uL (0-0.3); HEMATOCRIT 28.1 % (38.0-50.0); IMMATURE GRANULOCYTE (%) 0.4 % (0.0-0.7); INSTRUMENT ABS NEUTROPHIL CT 5.5 K/uL; LYMPHOCYTE COUNT 0.8 K/uL (1.0-2.8); MCHC 30.2 G/DL (30.0-36.0); MEAN PLAT.VOLUME 10.4 uM^3 (9.0-12.4); MONOCYTE COUNT 0.8 K/uL (0-0.8); NEUTROPHIL COUNT 5.5 K/uL (1.8-6.4); RBC DIS.WIDTH-CV 17.2 % (11.8-14.6); RED BLOOD COUNT 3.15 M/uL (4.00-5.50); WHITE BLOOD COUNT 7.5 K/uL (4.1-10.2)
[2017-06-28 05:46] LABS: MCV 89.2 FL (86-99); PLATELET COUNT 160 K/uL (156-360)
[2017-06-28 05:55] LABS: ANION GAP 12 MEQ/L (2-14); CHLORIDE 97 MEQ/L (99-109); GFR ESTIMATE (CALCULATED) 11 mL/min/; GLUCOSE 138 mg/dL (70-99); SAMPLE HEMOLYSIS CHECK 0; SAMPLE ICTERIC CHECK 0; SAMPLE LIPEMIA CHECK 0; SODIUM 138 MEQ/L (136-147); UREA NITROGEN (BUN) 35 mg/dL (9-23)
[2017-06-28 08:00] VITALS: BP 115/54
[2017-06-28 14:28] VITALS: BP 141/87
[2017-06-28 16:06] VITALS: BP 121/69
[2017-06-28 16:14] LABS: POINT-OF-CARE METER ID UU13113781
[2017-06-28 20:02] VITALS: BP 122/64
[2017-06-29] VITALS (7 sets, daily range): BP systolic 104–125; BP diastolic 53–77
[2017-06-29 11:26] LABS: POINT-OF-CARE METER ID UU13113698
[2017-06-29 12:28] LABS: POINT-OF-CARE METER ID UU13113781
[2017-06-29 16:48] LABS: POINT-OF-CARE METER ID UU13113698
[2017-06-29 20:44] LABS: POINT-OF-CARE METER ID UU13113698
[2017-06-29 22:07] LABS: POINT-OF-CARE METER ID UU13113781
[2017-06-30] VITALS (8 sets, daily range): BP systolic 90–125; BP diastolic 53–83
[2017-06-30 06:14] LABS: ANION GAP 14 MEQ/L (2-14); CHLORIDE 92 MEQ/L (99-109); GFR ESTIMATE (CALCULATED) 10 mL/min/; GLUCOSE 138 mg/dL (70-99); POTASSIUM 4.7 MEQ/L (3.7-5.4); SAMPLE HEMOLYSIS CHECK 0; SAMPLE ICTERIC CHECK 0; SAMPLE LIPEMIA CHECK 0; SODIUM 132 MEQ/L (136-147); UREA NITROGEN (BUN) 43 mg/dL (9-23)
[2017-06-30 06:58] LABS: HEMATOCRIT 28.6 % (38.0-50.0); MCH 27.7 PG (29.0-34.0); MCHC 30.8 G/DL (30.0-36.0); MCV 89.9 FL (86-99); MEAN PLAT.VOLUME 10.2 uM^3 (9.0-12.4); RBC DIS.WIDTH-CV 17.2 % (11.8-14.6); RED BLOOD COUNT 3.18 M/uL (4.00-5.50); WHITE BLOOD COUNT 9.8 K/uL (4.1-10.2)
[2017-06-30 07:00] LABS: PLATELET COUNT 252 K/uL (156-360)
[2017-06-30 07:58] LABS: POINT-OF-CARE METER ID UU13113781
[2017-06-30 10:43] LABS: INTER. NORMALIZED RATIO 1.1; PROTHROMBIN TIME 12.4 SEC (10.2-12.9)
[2017-06-30 10:46] LABS: PTT 26.6 SEC (25-37)
[2017-06-30 12:37] LABS: POINT-OF-CARE METER ID UU13113819
[2017-06-30 16:31] LABS: POINT-OF-CARE METER ID UU13113781
[2017-06-30 21:05] LABS: POINT-OF-CARE METER ID UU13113781
[2017-07-01] VITALS (7 sets, daily range): BP systolic 90–139; BP diastolic 53–65
[2017-07-01 07:32] LABS: POINT-OF-CARE METER ID UU13113781
[2017-07-01 09:16] LABS: EOSINOPHIL (%) 2.3 % (0-5); EOSINOPHIL COUNT 0.2 K/uL (0-0.3); HEMATOCRIT 25.4 % (38.0-50.0); IMMATURE GRANULOCYTE (%) 0.8 % (0.0-0.7); IMMATURE GRANULOCYTE COUNT 0.1 K/uL; LYMPHOCYTE COUNT 0.6 K/uL (1.0-2.8); MCH 28.9 PG (29.0-34.0); MCHC 31.5 G/DL (30.0-36.0); MCV 91.7 FL (86-99); MONOCYTE (%) 8.5 % (3-12); MONOCYTE COUNT 0.7 K/uL (0-0.8); NEUTROPHIL (%) 81.6 % (45-76); PLATELET COUNT 259 K/uL (156-360); RBC DIS.WIDTH-CV 17.4 % (11.8-14.6); RBC DIS.WIDTH-SD 57.1 % (39-53); RED BLOOD COUNT 2.77 M/uL (4.00-5.50); WHITE BLOOD COUNT 8.5 K/uL (4.1-10.2)
[2017-07-01 09:29] LABS: ANION GAP 14 MEQ/L (2-14); CHLORIDE 91 MEQ/L (99-109); POTASSIUM 4.5 MEQ/L (3.7-5.4); SAMPLE HEMOLYSIS CHECK 0; SAMPLE ICTERIC CHECK 0; SAMPLE LIPEMIA CHECK 0; SODIUM 131 MEQ/L (136-147)
[2017-07-01 09:36] LABS: GFR ESTIMATE (CALCULATED) 8 mL/min/; GLUCOSE 150 mg/dL (70-99); UREA NITROGEN (BUN) 61 mg/dL (9-23)
[2017-07-01 13:51] LABS: POINT-OF-CARE METER ID UU13113698
[2017-07-01 16:06] LABS: POINT-OF-CARE METER ID UU13113698
[2017-07-01 21:06] LABS: POINT-OF-CARE METER ID UU13113698
[2017-07-02] VITALS (7 sets, daily range): BP systolic 91–115; BP diastolic 48–62
[2017-07-02 05:35] LABS: EOSINOPHIL COUNT 0.1 K/uL (0-0.3); HEMATOCRIT 30.3 % (38.0-50.0); IMMATURE GRANULOCYTE (%) 0.8 % (0.0-0.7); IMMATURE GRANULOCYTE COUNT 0.1 K/uL; INSTRUMENT ABS NEUTROPHIL CT 9.2 K/uL; LYMPHOCYTE COUNT 0.8 K/uL (1.0-2.8); MCH 27.8 PG (29.0-34.0); MCHC 29.7 G/DL (30.0-36.0); MCV 93.5 FL (86-99); MEAN PLAT.VOLUME 9.6 uM^3 (9.0-12.4); MONOCYTE COUNT 1.3 K/uL (0-0.8); NEUTROPHIL (%) 80.1 % (45-76); NEUTROPHIL COUNT 9.2 K/uL (1.8-6.4); PLATELET COUNT 286 K/uL (156-360); RBC DIS.WIDTH-CV 17.5 % (11.8-14.6); RBC DIS.WIDTH-SD 58.4 % (39-53); RED BLOOD COUNT 3.24 M/uL (4.00-5.50); WHITE BLOOD COUNT 11.5 K/uL (4.1-10.2)
[2017-07-02 06:37] LABS: ANION GAP 17 MEQ/L (2-14); CHLORIDE 95 MEQ/L (99-109); GFR ESTIMATE (CALCULATED) 13 mL/min/; GLUCOSE 120 mg/dL (70-99); POTASSIUM 4.3 MEQ/L (3.7-5.4); SAMPLE HEMOLYSIS CHECK 0; SAMPLE ICTERIC CHECK 0; SAMPLE LIPEMIA CHECK 0; SODIUM 136 MEQ/L (136-147)
[2017-07-02 06:38] LABS: UREA NITROGEN (BUN) 27 mg/dL (9-23)
[2017-07-02 16:27] LABS: POINT-OF-CARE METER ID UU14174216
[2017-07-02 22:05] LABS: POINT-OF-CARE METER ID UU14188577
[2017-07-03] VITALS (7 sets, daily range): BP systolic 92–136; BP diastolic 47–58
[2017-07-03 07:54] LABS: BASE EXCESS 2.9 mEq/L (-3 to +3); BICARBONATE 29.7 mEq/L (22-26); PCO2 59 mm Hg (35-45); PO2 179 mm Hg (80-100); SITE RR; pH 7.31 (7.35-7.45)
[2017-07-03 07:54] LABS: MCH 27.7 PG (29.0-34.0); MCHC 29.6 G/DL (30.0-36.0); MCV 93.3 FL (86-99); MEAN PLAT.VOLUME 9.2 uM^3 (9.0-12.4); PLATELET COUNT 288 K/uL (156-360); RBC DIS.WIDTH-CV 17.9 % (11.8-14.6); WHITE BLOOD COUNT 8.7 K/uL (4.1-10.2)
[2017-07-03 07:55] LABS: COMMENTS - BLOOD GASES A+C+; DEVICE NRBM; FI02 100 %; O2 FLOW 15 L/MIN; TOTAL RESP RATE 22 resp/min
[2017-07-03 08:10] LABS: CHLORIDE 98 mEq/L (99-109); POTASSIUM 4.4 mEq/L (3.7-5.4); SODIUM 135 mEq/L (136-147)
[2017-07-03 08:11] LABS: GLUCOSE 174 mg/dL (70-99)
[2017-07-03 08:13] LABS: ANION GAP 16 MEQ/L (2-14)
[2017-07-03 08:15] LABS: GFR ESTIMATE (CALCULATED) 9 mL/min/; TROP-I INTERPRETATION NEGATIVE; TROPONIN-I 0.05 ng/mL (0.0-0.30)
[2017-07-03 08:16] LABS: UREA NITROGEN (BUN) 36 mg/dL (9-23)
[2017-07-03 08:44] LABS: METH RESISTANT S AUREUS PCR ND (NEGATIVE)
[2017-07-03 11:58] LABS: POINT-OF-CARE METER ID UU13113731
[2017-07-03 17:25] LABS: POINT-OF-CARE METER ID UU13113731
[2017-07-03 22:01] LABS: POINT-OF-CARE METER ID UU13113731
[2017-07-04] VITALS (8 sets, daily range): BP systolic 100–144; BP diastolic 47–67
[2017-07-04 07:03] LABS: HEMATOCRIT 26.2 % (38.0-50.0); MCH 27.3 PG (29.0-34.0); MCHC 29.4 G/DL (30.0-36.0); MCV 92.9 FL (86-99); MEAN PLAT.VOLUME 8.9 uM^3 (9.0-12.4); PLATELET COUNT 275 K/uL (156-360); RBC DIS.WIDTH-CV 18.1 % (11.8-14.6); RBC DIS.WIDTH-SD 58.8 % (39-53); RED BLOOD COUNT 2.82 M/uL (4.00-5.50); WHITE BLOOD COUNT 5.9 K/uL (4.1-10.2)
[2017-07-04 07:27] LABS: ANION GAP 8 MEQ/L (2-14); CHLORIDE 101 MEQ/L (99-109); GFR ESTIMATE (CALCULATED) 16 mL/min/; GLUCOSE 73 mg/dL (70-99); POTASSIUM 3.6 MEQ/L (3.7-5.4); SAMPLE HEMOLYSIS CHECK 0; SAMPLE ICTERIC CHECK 0; SAMPLE LIPEMIA CHECK 0; SODIUM 141 MEQ/L (136-147); UREA NITROGEN (BUN) 20 mg/dL (9-23)
[2017-07-04 22:07] LABS: POINT-OF-CARE METER ID UU14117124
[2017-07-05 04:37] VITALS: BP 104/52
[2017-07-05 06:11] LABS: POINT-OF-CARE METER ID UU14117124
[2017-07-05 09:17] LABS: HEMATOCRIT 25.5 % (38.0-50.0); MCHC 30.2 G/DL (30.0-36.0); MCV 92.7 FL (86-99); MEAN PLAT.VOLUME 9.2 uM^3 (9.0-12.4); PLATELET COUNT 295 K/uL (156-360); RBC DIS.WIDTH-CV 18.4 % (11.8-14.6); RBC DIS.WIDTH-SD 61.2 % (39-53); RED BLOOD COUNT 2.75 M/uL (4.00-5.50); WHITE BLOOD COUNT 6.9 K/uL (4.1-10.2)
[2017-07-05 09:40] LABS: ANION GAP 10 MEQ/L (2-14); CHLORIDE 94 MEQ/L (99-109); POTASSIUM 3.5 MEQ/L (3.7-5.4); SAMPLE HEMOLYSIS CHECK 0; SAMPLE ICTERIC CHECK 0; SAMPLE LIPEMIA CHECK 0
[2017-07-05 09:51] LABS: TROP-I INTERPRETATION NEGATIVE; TROPONIN-I 0.03 ng/mL (0.0-0.30)
[2017-07-05 09:57] LABS: GFR ESTIMATE (CALCULATED) 10 mL/min/; GLUCOSE 289 mg/dL (70-99); SODIUM 132 MEQ/L (136-147); UREA NITROGEN (BUN) 32 mg/dL (9-23)
[2017-07-05] MEDS ORDERED: SPIRIVA RESPIMAT4 GM IH (14:05)
[2017-07-05] MEDS ORDERED: ATORVASTATIN CA40 MG PO (14:05)
[2017-07-05] MEDS ORDERED: HEPARIN SO5000 UNIT4 SC (14:05)
[2017-07-05] MEDS ORDERED: DUONEB 2.5-0.5 M3 ML AEROSOL (14:05)
[2017-07-05] MEDS ORDERED: LOPRESSOR25 MG PO (14:06)
[2017-07-05] MEDS ORDERED: AMLODIPINE BESY10 MG PO (14:06)
[2017-07-05] MEDS ORDERED: ASPIR-LOW81 MG PO (14:06)
[2017-07-05] MEDS ORDERED: FUROSEMIDE40 MG PO (14:07)
[2017-07-05] MEDS ORDERED: POLYETHYLENE GL17 GM PO (14:08)
[2017-07-05] MEDS ORDERED: DOCUSATE SODIU100 MG PO (14:08)
[2017-07-05] MEDS ORDERED: ALPRAZOLAM0.5 MG PO (14:09)
[2017-07-05] MEDS ORDERED: DILAUDID4 MG PO (14:09)
[2017-07-05] MEDS ORDERED: METHADONE10 MG PO (14:09)
[2017-07-05] MEDS ORDERED: NOVOLOG PE100 UNITS/ SC (14:15)
[2017-07-05 16:13] VITALS: BP 123/58
== END 2017-07-05 17:17 | disposition other institution (70) | DRG 91 ==
LOC: EME 14:27 → EDOF 15:22 → 4EAST 15:22 → 4WEST 15:22 → ENRESERV 15:23 → 4WEST 17:10 → ENRESERV 17:12 → EDOF 17:13 → ENRESERV 17:14 → 4WEST 17:59 → ENRESERV 06-28 07:58 → 4WEST 06-28 10:14 → 4EAST 06-28 14:14 → 3EAST 06-30 16:18 → 4EAST 06-30 16:18 → ENRESERV 07-02 16:36 → 3EAST 07-02 17:31 → CANRESERV 07-03 08:06 → ENRESERV 07-03 08:06 → 4WEST 07-03 08:18 → ENRESERV 07-04 12:28 → 3EAST 07-04 14:05
PROVIDERS: Emergency Medicine; Family Medicine; Internal Medicine; Internal Medicine Cardiovascular Disease; Internal Medicine Critical Care Medicine; Internal Medicine Nephrology; Specialist; Student in an Organized Health Care Education/Training Program
PROC: 05H633Z Insertion of Infusion Device into Left Subclavian Vein, Percutaneous Approach (ICD-10-PCS; principal; 2017-06-22)
PROC: 5A1D00Z (ICD-10-PCS; principal; 2017-06-22)
PROC: 5A1945Z Respiratory Ventilation, 24-96 Consecutive Hours (ICD-10-PCS; 2017-06-22)
PROC: 0W9B00Z Drainage of Left Pleural Cavity with Drainage Device, Open Approach (ICD-10-PCS; 2017-06-24)
PROC: B2151ZZ Fluoroscopy of Left Heart using Low Osmolar Contrast (ICD-10-PCS; 2017-06-30)
PROC: 4A023N7 Measurement of Cardiac Sampling and Pressure, Left Heart, Percutaneous Approach (ICD-10-PCS; 2017-06-30)
PROC: B2111ZZ Fluoroscopy of Multiple Coronary Arteries using Low Osmolar Contrast (ICD-10-PCS; 2017-06-30)
DX: G93.1 Anoxic brain damage, not elsewhere classified (principal); I46.9 Cardiac arrest, cause unspecified; N18.6 End stage renal disease; J93.82 Other air leak; J93.0 Spontaneous tension pneumothorax; N17.9 Acute kidney failure, unspecified; T80.219A Unspecified infection due to central venous catheter, initial encounter; S22.49XA Multiple fractures of ribs, unspecified side, initial encounter for closed fracture; R78.81 Bacteremia; E11.22 Type 2 diabetes mellitus with diabetic chronic kidney disease; E87.5 Hyperkalemia; I45.10 Unspecified right bundle-branch block; E78.5 Hyperlipidemia, unspecified; G89.29 Other chronic pain; I48.0 Paroxysmal atrial fibrillation; J96.91 Respiratory failure, unspecified with hypoxia; I12.9 Hypertensive chronic kidney disease with stage 1 through stage 4 chronic kidney disease, or unspecified chronic kidney disease; D63.1 Anemia in chronic kidney disease; B95.61 Methicillin susceptible Staphylococcus aureus infection as the cause of diseases classified elsewhere; K59.00 Constipation, unspecified; I25.10 Atherosclerotic heart disease of native coronary artery without angina pectoris; J44.9 Chronic obstructive pulmonary disease, unspecified; K21.9 Gastro-esophageal reflux disease without esophagitis; I50.9 Heart failure, unspecified; E87.4 Mixed disorder of acid-base balance; N31.9 Neuromuscular dysfunction of bladder, unspecified; Z87.891 Personal history of nicotine dependence; Z98.1 Arthrodesis status; Z79.891 Long term (current) use of opiate analgesic; Z99.2 Dependence on renal dialysis; Z90.81 Acquired absence of spleen; Z79.4 Long term (current) use of insulin; Z82.49 Family history of ischemic heart disease and other diseases of the circulatory system
CPT/HCPCS: 36600; 70450; 71010; 78580; 80047; 80048; 80048 91; 80053; 80061; 80069; 80202; 81003; 82150; 82803; 82948; 83605; 83690; 83735; 83880; 84100; 84484; 84999; 85025; 85027; 85379; 85610; 85730; 86706; 86850; 86900; 86901; 87040; 87070; 87077; 87086; 87186; 87205; 87340; 87641; 87801; 92610 GN; 93005; 93306; 94002; 94003; 94010; 94640; 94640 76; 94667; 94668; 94760; 94799; 97530 GO; 97530 GP; 99202; 99281; 99285; A9540; C1751; C1769; C1887; G0283 GP; G0480; J0171; J0690; J0881; J1644; J1756; J1815; J2250; J2270; J2405; J2704; J3010; J3370; J7030; J7040; J7050; S0028

== ENCOUNTER 2017-08-12 17:00 | Emergency (ER) | payer OTHER ==
[~2017-08-12] VITALS: Ht 165.1 cm; Wt 64.0 kg
[~2017-08-12 17:00] MED LIST changes: +ASPIR-LOW81 MG PO; +ATORVASTATIN CA40 MG PO; +HEPARIN SO5000 UNIT4 SC
[2017-08-12 18:12] LABS: BASOPHIL COUNT 0.1 K/uL (0-0.1); EOSINOPHIL (%) 2.5 % (0-5); EOSINOPHIL COUNT 0.3 K/uL (0-0.3); HEMATOCRIT 38.6 % (38.0-50.0); IMMATURE GRANULOCYTE (%) 0.4 % (0.0-0.7); IMMATURE GRANULOCYTE COUNT 0.1 K/uL; INSTRUMENT ABS NEUTROPHIL CT 9.6 K/uL; LYMPHOCYTE COUNT 0.8 K/uL (1.0-2.8); MCH 29.3 PG (29.0-34.0); MCHC 30.3 G/DL (30.0-36.0); MCV 96.5 FL (86-99); MEAN PLAT.VOLUME 10.6 uM^3 (9.0-12.4); MONOCYTE (%) 4.6 % (3-12); MONOCYTE COUNT 0.5 K/uL (0-0.8); NEUTROPHIL (%) 85.1 % (45-76); NEUTROPHIL COUNT 9.6 K/uL (1.8-6.4); PLATELET COUNT 170 K/uL (156-360); RBC DIS.WIDTH-CV 15.6 % (11.8-14.6); RBC DIS.WIDTH-SD 55.4 % (39-53); WHITE BLOOD COUNT 11.3 K/uL (4.1-10.2)
[2017-08-12 18:17] LABS: PROTHROMBIN TIME 11.5 SEC (10.2-12.9)
[2017-08-12 18:20] LABS: PTT 29.4 SEC (25-37)
[2017-08-12 18:24] LABS: CHLORIDE 92 mEq/L (99-109); POTASSIUM 4.3 mEq/L (3.7-5.4); SODIUM 139 mEq/L (136-147)
[2017-08-12 18:25] LABS: GLUCOSE 78 mg/dL (70-99)
[2017-08-12 18:27] LABS: ANION GAP 16 MEQ/L (2-14)
[2017-08-12 18:29] LABS: GFR ESTIMATE (CALCULATED) 15 mL/min/
[2017-08-12 18:30] LABS: UREA NITROGEN (BUN) 20 mg/dL (9-23)
[2017-08-12 18:32] LABS: TROP-I INTERPRETATION NEGATIVE; TROPONIN-I 0.04 ng/mL (0.0-0.30)
[2017-08-12 19:12] LABS: POINT-OF-CARE METER ID UU13113747
[2017-08-12 19:27] LABS: POINT-OF-CARE METER ID UU13113747
[2017-08-12 20:23] LABS: POINT-OF-CARE METER ID UU13113747
[2017-08-12 22:11] VITALS: BP 135/62
== END 2017-08-12 22:14 | disposition home or self-care (01) ==
LOC: EME 17:00
PROVIDERS: Emergency Medicine
DX: T78.3XXA Angioneurotic edema, initial encounter (principal); T50.3X5A Adverse effect of electrolytic, caloric and water-balance agents, initial encounter; I13.2 Hypertensive heart and chronic kidney disease with heart failure and with stage 5 chronic kidney disease, or end stage renal disease; E11.22 Type 2 diabetes mellitus with diabetic chronic kidney disease; N18.6 End stage renal disease; I50.9 Heart failure, unspecified; Z99.2 Dependence on renal dialysis; Z79.4 Long term (current) use of insulin; J44.9 Chronic obstructive pulmonary disease, unspecified; K21.9 Gastro-esophageal reflux disease without esophagitis; F41.9 Anxiety disorder, unspecified; Z87.891 Personal history of nicotine dependence
CPT/HCPCS: 71010; 80048; 82948; 84484; 85025; 85610; 85730; 93005; 99281; 99285; J0171; J1200; J2310

== ENCOUNTER 2017-08-25 05:49 | Inpatient (IN) | payer OTHER ==
[~2017-08-25] VITALS: Ht 160 cm; Wt 67.7 kg
[2017-08-25 06:41] LABS: HEMATOCRIT 36.5 % (38.0-50.0); MCH 28.4 PG (29.0-34.0); MCV 97.9 FL (86-99); MEAN PLAT.VOLUME 10.3 uM^3 (9.0-12.4); PLATELET COUNT 183 K/uL (156-360); RBC DIS.WIDTH-CV 15.4 % (11.8-14.6); RED BLOOD COUNT 3.73 M/uL (4.00-5.50); WHITE BLOOD COUNT 13.8 K/uL (4.1-10.2)
[2017-08-25 07:12] LABS: ALKALINE PHOSPHATASE 176 IU/L (3-129); ANION GAP 12 MEQ/L (2-14); CHLORIDE 98 MEQ/L (99-109); DIRECT BILIRUBIN 0.1 mg/dL (0.0-0.3); GFR ESTIMATE (CALCULATED) 8 mL/min/; GLUCOSE 144 mg/dL (70-99); POTASSIUM 5.2 MEQ/L (3.7-5.4); SAMPLE HEMOLYSIS CHECK 0; SAMPLE ICTERIC CHECK 0; SAMPLE LIPEMIA CHECK 0; SODIUM 142 MEQ/L (136-147); TOTAL BILIRUBIN 0.6 MG/DL (0.0-1.0); UREA NITROGEN (BUN) 35 mg/dL (9-23)
[2017-08-25 07:27] LABS: ADD MIUA? YES; BILIRUBIN NEGATIVE; BLOOD SMALL; COLOR YELLOW ((YELLOW)); GLUCOSE (STRIP) 50; KETONES NEGATIVE; LEUKOCYTES LARGE; NITRITE NEGATIVE; PROTEIN (STRIP) 100; SPECIFIC GRAVITY 1.016 (1.000-1.030); UROBILINOGEN 0.2 MG/DL (0.2-1.0)
[2017-08-25 07:37] LABS: BACTERIA 2+ /HPF; EPITHELIAL CELLS 1+ /HPF; MUCUS NONE SEEN /LPF; RED BLOOD CELLS 30-40 /HPF (0-5); UCUL ADDED? YES; WHITE BLOOD CELLS TNTC /HPF (0-5); WHITE BLOOD CELLS CLUMP MANY /HPF (0-5)
[2017-08-25 09:16] LABS: MAGNESIUM 2.3 mg/dl (1.3-2.7)
[2017-08-25 09:17] LABS: BASOPHIL COUNT 0.1 K/uL (0-0.1); EOSINOPHIL (%) 4.9 % (0-5); EOSINOPHIL COUNT 0.7 K/uL (0-0.3); IMMATURE GRANULOCYTE (%) 0.3 % (0.0-0.7); INSTRUMENT ABS NEUTROPHIL CT 11.1 K/uL; LYMPHOCYTE COUNT 0.9 K/uL (1.0-2.8); MONOCYTE (%) 6.2 % (3-12); MONOCYTE COUNT 0.8 K/uL (0-0.8); NEUTROPHIL (%) 81.7 % (45-76); NEUTROPHIL COUNT 11.1 K/uL (1.8-6.4)
[2017-08-25] MEDS ORDERED: LOPRESSOR25 MG PO (10:10)
[2017-08-25] MEDS ORDERED: VELTASSA8.4 GM PO (10:21)
[2017-08-25 11:19] LABS: HBSG INDEX 0.25
[2017-08-25 11:20] LABS: ANTI-HEPATITIS A VIRUS (IGM) Nonreactive; HAV INDEX 0.17; HPCA INDEX 0.21
[2017-08-25 11:21] LABS: ANTI-HEPATITIS B CORE (IGM) Nonreactive; HBC IgM INDEX 0.06
[2017-08-25 14:20] VITALS: BP 165/82
[2017-08-25 17:04] LABS: POINT-OF-CARE METER ID UU13113717
[2017-08-25 19:22] VITALS: BP 171/80
[2017-08-25 22:45] LABS: POINT-OF-CARE METER ID UU14174225
[2017-08-25 23:20] VITALS: BP 160/78
[2017-08-26 03:40] VITALS: BP 158/76
[2017-08-26 05:32] LABS: HEMATOCRIT 33.8 % (38.0-50.0); MCH 28.8 PG (29.0-34.0); MCHC 29.6 G/DL (30.0-36.0); MCV 97.4 FL (86-99); MEAN PLAT.VOLUME 10.7 uM^3 (9.0-12.4); PLATELET COUNT 152 K/uL (156-360); RBC DIS.WIDTH-CV 15.2 % (11.8-14.6); RBC DIS.WIDTH-SD 53.5 % (39-53); RED BLOOD COUNT 3.47 M/uL (4.00-5.50); WHITE BLOOD COUNT 20.6 K/uL (4.1-10.2)
[2017-08-26 06:38] LABS: ALKALINE PHOSPHATASE 172 IU/L (3-129); ANION GAP 10 MEQ/L (2-14); CHLORIDE 99 MEQ/L (99-109); GLUCOSE 127 mg/dL (70-99); SAMPLE HEMOLYSIS CHECK 0; SAMPLE ICTERIC CHECK 0; SAMPLE LIPEMIA CHECK 0; SODIUM 140 MEQ/L (136-147); TOTAL BILIRUBIN 0.6 MG/DL (0.0-1.0); UREA NITROGEN (BUN) 19 mg/dL (9-23); VANCOMYCIN, TROUGH 14.2 MCG/ML (10-20)
[2017-08-26 06:41] LABS: GFR ESTIMATE (CALCULATED) 13 mL/min/; POTASSIUM 3.9 MEQ/L (3.7-5.4)
[2017-08-26 07:05] VITALS: BP 122/60
[2017-08-26 07:11] LABS: POINT-OF-CARE METER ID UU14174225
[2017-08-26 07:56] LABS: METH RESISTANT S AUREUS PCR NEGATIVE (NEGATIVE)
[2017-08-26 08:11] LABS: EOSINOPHIL (%) 0.1 % (0-5); HEMATOCRIT 32.2 % (38.0-50.0); IMMATURE GRANULOCYTE (%) 0.6 % (0.0-0.7); IMMATURE GRANULOCYTE COUNT 0.1 K/uL; INSTRUMENT ABS NEUTROPHIL CT 21.2 K/uL; LYMPHOCYTE COUNT 0.4 K/uL (1.0-2.8); MCH 28.5 PG (29.0-34.0); MCHC 29.5 G/DL (30.0-36.0); MCV 96.7 FL (86-99); MEAN PLAT.VOLUME 10.8 uM^3 (9.0-12.4); MONOCYTE (%) 3.4 % (3-12); MONOCYTE COUNT 0.8 K/uL (0-0.8); NEUTROPHIL (%) 93.8 % (45-76); NEUTROPHIL COUNT 21.2 K/uL (1.8-6.4); PLATELET COUNT 155 K/uL (156-360); RBC DIS.WIDTH-SD 52.2 % (39-53); RED BLOOD COUNT 3.33 M/uL (4.00-5.50); WHITE BLOOD COUNT 22.6 K/uL (4.1-10.2)
[2017-08-26 08:12] LABS: PROBE CHECK PASS; SPECIMEN PROCESSING CONTROL PASS
[2017-08-26 11:52] LABS: POINT-OF-CARE METER ID UU13113717
[2017-08-26 15:13] VITALS: BP 152/69
[2017-08-26 16:16] LABS: POINT-OF-CARE METER ID UU13113717
[2017-08-26 19:37] VITALS: BP 146/67
[2017-08-26 21:30] LABS: POINT-OF-CARE METER ID UU14188625
[2017-08-26 23:30] VITALS: BP 122/58
[2017-08-27 03:58] VITALS: BP 126/59
[2017-08-27 06:53] LABS: EOSINOPHIL (%) 3.3 % (0-5); EOSINOPHIL COUNT 0.4 K/uL (0-0.3); HEMATOCRIT 32.5 % (38.0-50.0); IMMATURE GRANULOCYTE (%) 0.4 % (0.0-0.7); IMMATURE GRANULOCYTE COUNT 0.1 K/uL; INSTRUMENT ABS NEUTROPHIL CT 9.6 K/uL; LYMPHOCYTE COUNT 0.7 K/uL (1.0-2.8); MCH 29.8 PG (29.0-34.0); MCHC 30.8 G/DL (30.0-36.0); MCV 96.7 FL (86-99); MONOCYTE (%) 6.7 % (3-12); MONOCYTE COUNT 0.8 K/uL (0-0.8); NEUTROPHIL (%) 82.9 % (45-76); NEUTROPHIL COUNT 9.6 K/uL (1.8-6.4); PLATELET COUNT 149 K/uL (156-360); RBC DIS.WIDTH-CV 15.1 % (11.8-14.6); RBC DIS.WIDTH-SD 53.2 % (39-53); RED BLOOD COUNT 3.36 M/uL (4.00-5.50); WHITE BLOOD COUNT 11.6 K/uL (4.1-10.2)
[2017-08-27 07:51] VITALS: BP 148/75
[2017-08-27 09:12] LABS: POINT-OF-CARE METER ID UU14188625
[2017-08-27 11:47] LABS: POINT-OF-CARE METER ID UU14188625
[2017-08-27 15:28] VITALS: BP 149/71
[2017-08-27 21:12] LABS: POINT-OF-CARE METER ID UU14188625; POINT-OF-CARE USER ID 603211116
[2017-08-27 21:22] VITALS: BP 152/68
[2017-08-27 23:47] VITALS: BP 162/71
[2017-08-28 09:02] LABS: HEMATOCRIT 32.8 % (38.0-50.0); MCH 30.5 PG (29.0-34.0); MCV 95.3 FL (86-99); MEAN PLAT.VOLUME 11.5 uM^3 (9.0-12.4); PLATELET COUNT 161 K/uL (156-360); RBC DIS.WIDTH-CV 15.1 % (11.8-14.6); RBC DIS.WIDTH-SD 52.4 % (39-53); RED BLOOD COUNT 3.44 M/uL (4.00-5.50); WHITE BLOOD COUNT 8.8 K/uL (4.1-10.2)
[2017-08-28 10:51] LABS: ANION GAP 12 MEQ/L (2-14); CHLORIDE 96 MEQ/L (99-109); GFR ESTIMATE (CALCULATED) 10 mL/min/; GLUCOSE 222 mg/dL (70-99); POTASSIUM 3.7 MEQ/L (3.7-5.4); SAMPLE HEMOLYSIS CHECK 0; SAMPLE ICTERIC CHECK 0; SAMPLE LIPEMIA CHECK 0; SODIUM 135 MEQ/L (136-147); UREA NITROGEN (BUN) 31 mg/dL (9-23); VANCOMYCIN, TROUGH 21.1 MCG/ML (10-20)
[2017-08-28] MEDS ORDERED: CEFTIN500 MG PO ×2 (11:28→11:50)
[2017-08-28] MEDS ORDERED: BACTRIM,SEPT1 TABLET PO ×2 (11:28→11:50)
[2017-08-28] MEDS ORDERED: LACTULOSE10 GM/151 PO (11:31)
[2017-08-28] MEDS ORDERED: BACTRIM,SEPT1 TABLE1 PO (11:50)
[2017-08-28 12:20] LABS: POINT-OF-CARE METER ID UU14188625
[2017-08-28] MEDS ORDERED: XANAX1 MG PO (13:10)
[2017-08-28 16:17] VITALS: BP 143/58
[2017-08-28 17:34] LABS: POINT-OF-CARE METER ID UU13113717
== END 2017-08-28 17:30 | disposition home health service (06) | DRG 70 ==
LOC: EME → EDBD 05:49 → EME 05:49 → 5SOUTH 08:19 → EDOF 08:19 → ENRESERV 08:20 → 5SOUTH 14:19
PROVIDERS: Internal Medicine; Internal Medicine Nephrology; Physician Assistant Medical
PROC: 5A1D70Z Performance of Urinary Filtration, Intermittent, Less than 6 Hours Per Day (ICD-10-PCS; principal; 2017-08-25)
DX: G93.41 Metabolic encephalopathy (principal); N18.6 End stage renal disease; J18.9 Pneumonia, unspecified organism; K72.00 Acute and subacute hepatic failure without coma; F05 Delirium due to known physiological condition; E72.20 Disorder of urea cycle metabolism, unspecified; N30.00 Acute cystitis without hematuria; I13.2 Hypertensive heart and chronic kidney disease with heart failure and with stage 5 chronic kidney disease, or end stage renal disease; J44.0 Chronic obstructive pulmonary disease with (acute) lower respiratory infection; F11.20 Opioid dependence, uncomplicated; F33.9 Major depressive disorder, recurrent, unspecified; L03.116 Cellulitis of left lower limb; D63.1 Anemia in chronic kidney disease; I50.9 Heart failure, unspecified; G89.4 Chronic pain syndrome; K21.9 Gastro-esophageal reflux disease without esophagitis; F41.9 Anxiety disorder, unspecified; E11.22 Type 2 diabetes mellitus with diabetic chronic kidney disease; E11.51 Type 2 diabetes mellitus with diabetic peripheral angiopathy without gangrene; F17.210 Nicotine dependence, cigarettes, uncomplicated; D69.6 Thrombocytopenia, unspecified; E78.5 Hyperlipidemia, unspecified; I87.2 Venous insufficiency (chronic) (peripheral); B95.62 Methicillin resistant Staphylococcus aureus infection as the cause of diseases classified elsewhere; I87.8 Other specified disorders of veins; K42.9 Umbilical hernia without obstruction or gangrene; N31.9 Neuromuscular dysfunction of bladder, unspecified; N40.0 Benign prostatic hyperplasia without lower urinary tract symptoms; Z86.74 Personal history of sudden cardiac arrest; Z90.49 Acquired absence of other specified parts of digestive tract; Z90.81 Acquired absence of spleen; Z98.1 Arthrodesis status; Z99.2 Dependence on renal dialysis; Z91.15 Patient's noncompliance with renal dialysis; Z79.4 Long term (current) use of insulin; Z80.8 Family history of malignant neoplasm of other organs or systems
CPT/HCPCS: 70450; 71010; 74176; 76705; 80048; 80053; 80074; 80076; 80202; 81003; 82140; 82565; 82948; 83605; 83735; 85025; 85027; 85651; 87040; 87077; 87086; 87147; 87186; 87641; 93005; 93971; 94640 76; 94760; 94799; 99202; 99281; 99285; J0696; J1644; J1815; J3370; J7050

== ENCOUNTER 2017-10-13 17:02 | Inpatient (IN) | payer OTHER ==
[~2017-10-13] VITALS: Ht 160 cm; Wt 55.5 kg
[~2017-10-13 17:02] MED LIST changes: +BACTRIM,SEPT1 TABLE1 PO; +CEFTIN500 MG PO; +LACTULOSE10 GM/151 PO
[2017-10-13 18:49] LABS: TROP-I INTERPRETATION POSITIVE
[2017-10-13 19:06] LABS: HEMATOCRIT 43.4 % (38.0-50.0); HEMOGLOBIN 13.2 G/DL (12.5-16.6); MCH 28.8 PG (29.0-34.0); MCHC 30.4 G/DL (30.0-36.0); MCV 94.6 FL (86-99); PLATELET COUNT 171 K/uL (156-360); RBC DIS.WIDTH-CV 14.8 % (11.8-14.6); RBC DIS.WIDTH-SD 51.3 % (39-53); RED BLOOD COUNT 4.59 M/uL (4.00-5.50); WHITE BLOOD COUNT 17.5 K/uL (4.1-10.2)
[2017-10-13 19:29] LABS: ALBUMIN 3.7 g/dL (3.2-4.8); CHLORIDE 96 mEq/L (99-109); POTASSIUM 5.8 mEq/L (3.7-5.4); SODIUM 140 mEq/L (136-147)
[2017-10-13 19:32] LABS: GLUCOSE 94 mg/dL (70-99); TOTAL PROTEIN 7.1 g/dL (6.4-8.3)
[2017-10-13 19:34] LABS: TOTAL BILIRUBIN 0.9 mg/dL (0.0-1.0)
[2017-10-13 19:35] LABS: ALKALINE PHOSPHATASE 379 IU/L (3-129); CREATININE 6.8 mg/dL (0.6-1.3); GFR ESTIMATE (CALCULATED) 9 mL/min/ (58.99-99999)
[2017-10-13 19:37] LABS: AST (GOT) 59 IU/L (2-34); UREA NITROGEN (BUN) 42 mg/dL (9-23)
[2017-10-13 19:38] LABS: ALT (GPT) 61 IU/L (3-49)
[2017-10-13 19:48] LABS: ABS NEUTROPHIL COUNT 16.1; ANISOCYTOSIS 1+; BAND NEUTROPHILS 19.1 % (0-8.0); EOSINOPHIL ABS CT 0.2; EOSINOPHILS 0.9 % (0-5.0); MACROCYTES 1+; METAMYELOCYTES 1.7 %; MICROCYTOSIS 1+; MONOCYTES 5.2 % (0-9.0); SEG.NEUTROPHILS 73.1 % (46.0-76.0)
[2017-10-13] MEDS ORDERED: DILAUDID4 MG PO (20:47)
[2017-10-13] MEDS ORDERED: VELTASSA8.4 GM PO (20:48)
[2017-10-13] MEDS ORDERED: ENULOSE10 GM/15 M PO (20:48)
[2017-10-13] MEDS ORDERED: LEVEMIR100 UNIT/2 SC (20:49)
[2017-10-13] MEDS ORDERED: MIRALAX17 GM PO (20:49)
[2017-10-14 00:30] VITALS: BP 131/60
[2017-10-14 00:34] LABS: TROP-I INTERPRETATION POSITIVE
[2017-10-14 00:36] LABS: TROPONIN-I 10.14 ng/mL (0.0-0.30)
[2017-10-14 02:45] LABS: INTER. NORMALIZED RATIO 1.3
[2017-10-14 02:48] LABS: PTT 30.9 SEC (25-37)
[2017-10-14 06:27] LABS: HEMATOCRIT 38.8 % (38.0-50.0); HEMOGLOBIN 11.7 G/DL (12.5-16.6); MCH 28.5 PG (29.0-34.0); MCHC 30.2 G/DL (30.0-36.0); MCV 94.6 FL (86-99); PLATELET COUNT 147 K/uL (156-360); RBC DIS.WIDTH-CV 14.9 % (11.8-14.6); RBC DIS.WIDTH-SD 51.7 % (39-53); WHITE BLOOD COUNT 18.6 K/uL (4.1-10.2)
[2017-10-14 06:43] LABS: CHLORIDE 95 MEQ/L (99-109); CREATININE 7.4 MG/DL (0.6-1.3); GFR ESTIMATE (CALCULATED) 8 mL/min/ (58.99-99999); SODIUM 134 MEQ/L (136-147); UREA NITROGEN (BUN) 54 mg/dL (9-23)
[2017-10-14 06:45] LABS: GLUCOSE 163 mg/dL (70-99); POTASSIUM 6.1 MEQ/L (3.7-5.4)
[2017-10-14 06:48] LABS: PLAT.SUFFICIENCY DECREASED
[2017-10-14 07:24] LABS: Estimated Average Glucose 131 mg/dL (70-123); HEMOGLOBIN A1c (GLYCOHEMOGLOB) 6.2 % HGB (Below 5.7)
[2017-10-14 12:47] VITALS: BP 172/79
[2017-10-14 13:44] LABS: TROP-I INTERPRETATION POSITIVE; TROPONIN-I 17.07 ng/mL (0.0-0.30)
[2017-10-14 16:34] LABS: APPEARANCE CLOUDY ((CLEAR)); BILIRUBIN NEGATIVE; BLOOD MODERATE; GLUCOSE (STRIP) 50; KETONES NEGATIVE; LEUKOCYTES MODERATE; NITRITE NEGATIVE; PROTEIN (STRIP) 100; SPECIFIC GRAVITY 1.017 (1.000-1.030); UROBILINOGEN 0.2 MG/DL (0.2-1.0)
[2017-10-14 16:37] LABS: COLOR YELLOW ((YELLOW))
[2017-10-14 16:55] LABS: AMORPHOUS URATES CRYSTALS 2+; BACTERIA 2+ /HPF; EPITHELIAL CELLS 1+ /HPF; MUCUS RARE /LPF; WHITE BLOOD CELLS 20-30 /HPF (0-5)
[2017-10-14 17:07] VITALS: BP 144/80
[2017-10-14 19:06] VITALS: BP 178/87
[2017-10-14 23:01] VITALS: BP 135/77
[2017-10-15 03:00] VITALS: BP 141/69
[2017-10-15 07:35] LABS: HEMATOCRIT 35.7 % (38.0-50.0); HEMOGLOBIN 10.8 G/DL (12.5-16.6); MCH 28.1 PG (29.0-34.0); MCHC 30.3 G/DL (30.0-36.0); MCV 92.7 FL (86-99); PLATELET COUNT 154 K/uL (156-360); RBC DIS.WIDTH-CV 14.6 % (11.8-14.6); RBC DIS.WIDTH-SD 50.3 % (39-53); RED BLOOD COUNT 3.85 M/uL (4.00-5.50); WHITE BLOOD COUNT 11.9 K/uL (4.1-10.2)
[2017-10-15 07:58] LABS: TROP-I INTERPRETATION POSITIVE; TROPONIN-I 16.73 ng/mL (0.0-0.30)
[2017-10-15 08:11] LABS: CHLORIDE 94 MEQ/L (99-109); GLUCOSE 242 mg/dL (70-99); MAGNESIUM 2.5 mg/dl (1.3-2.7); POTASSIUM 4.9 MEQ/L (3.7-5.4); SODIUM 133 MEQ/L (136-147); UREA NITROGEN (BUN) 57 mg/dL (9-23)
[2017-10-15 08:20] LABS: CREATININE 5.3 MG/DL (0.6-1.3); GFR ESTIMATE (CALCULATED) 12 mL/min/ (58.99-99999); VANCOMYCIN, TROUGH 9.2 MCG/ML (10-20)
[2017-10-15 09:42] VITALS: BP 163/78
[2017-10-15 12:23] VITALS: BP 144/71
[2017-10-15 14:45] VITALS: BP 148/60
[2017-10-15 19:14] VITALS: BP 183/89
[2017-10-15 22:42] VITALS: BP 138/71
[2017-10-16] VITALS (7 sets, daily range): BP systolic 138–197; BP diastolic 70–90
[2017-10-16 09:36] LABS: BASOPHIL (%) 0.1 % (0-1); EOSINOPHIL (%) 0 % (0-5); HEMATOCRIT 33.9 % (38.0-50.0); HEMOGLOBIN 10.4 G/DL (12.5-16.6); IMMATURE GRANULOCYTE (%) 0.6 % (0.0-0.7); LYMPHOCYTE (%) 3.4 % (15-42); LYMPHOCYTE COUNT 0.3 K/uL (1.0-2.8); MCH 28.7 PG (29.0-34.0); MCHC 30.7 G/DL (30.0-36.0); MCV 93.6 FL (86-99); MONOCYTE (%) 4.8 % (3-12); MONOCYTE COUNT 0.5 K/uL (0-0.8); NEUTROPHIL (%) 91.1 % (45-76); NEUTROPHIL COUNT 8.6 K/uL (1.8-6.4); PLATELET COUNT 137 K/uL (156-360); RBC DIS.WIDTH-CV 14.6 % (11.8-14.6); RBC DIS.WIDTH-SD 50.1 % (39-53); RED BLOOD COUNT 3.62 M/uL (4.00-5.50); WHITE BLOOD COUNT 9.4 K/uL (4.1-10.2)
[2017-10-16 11:19] LABS: TROPONIN-I 7.86 ng/mL (0.0-0.30)
[2017-10-16 11:20] LABS: TROP-I INTERPRETATION POSITIVE
[2017-10-16 11:27] LABS: ALBUMIN 3.3 G/DL (3.2-4.8); CHLORIDE 93 MEQ/L (99-109); POTASSIUM 4.7 MEQ/L (3.7-5.4); SODIUM 134 MEQ/L (136-147); TOTAL BILIRUBIN 0.5 MG/DL (0.0-1.0)
[2017-10-16 11:45] LABS: ALKALINE PHOSPHATASE 206 IU/L (3-129); ALT (GPT) 28 IU/L (3-49); AST (GOT) 21 IU/L (2-34); CREATININE 6.1 MG/DL (0.6-1.3); GFR ESTIMATE (CALCULATED) 10 mL/min/ (58.99-99999); GLUCOSE 281 mg/dL (70-99); TOTAL PROTEIN 6.4 G/DL (6.4-8.3); UREA NITROGEN (BUN) 90 mg/dL (9-23)
[2017-10-17 03:35] VITALS: BP 179/93
[2017-10-17 04:36] VITALS: BP 183/86
[2017-10-17 05:46] LABS: BASOPHIL (%) 0 % (0-1); EOSINOPHIL (%) 0 % (0-5); HEMATOCRIT 38.8 % (38.0-50.0); HEMOGLOBIN 11.9 G/DL (12.5-16.6); IMMATURE GRANULOCYTE (%) 1.1 % (0.0-0.7); LYMPHOCYTE (%) 3.9 % (15-42); LYMPHOCYTE COUNT 0.2 K/uL (1.0-2.8); MCH 27.4 PG (29.0-34.0); MCHC 30.7 G/DL (30.0-36.0); MONOCYTE (%) 2.8 % (3-12); MONOCYTE COUNT 0.2 K/uL (0-0.8); NEUTROPHIL (%) 92.2 % (45-76); NEUTROPHIL COUNT 5.2 K/uL (1.8-6.4); PLATELET COUNT 165 K/uL (156-360); RBC DIS.WIDTH-CV 14.4 % (11.8-14.6); RBC DIS.WIDTH-SD 47.1 % (39-53); RED BLOOD COUNT 4.34 M/uL (4.00-5.50); WHITE BLOOD COUNT 5.6 K/uL (4.1-10.2)
[2017-10-17 05:47] LABS: MCV 89.4 FL (86-99)
[2017-10-17 06:02] LABS: ALBUMIN 3.8 G/DL (3.2-4.8); ALKALINE PHOSPHATASE 221 IU/L (3-129); ALT (GPT) 28 IU/L (3-49); AST (GOT) 14 IU/L (2-34); CHLORIDE 91 MEQ/L (99-109); GFR ESTIMATE (CALCULATED) 13 mL/min/ (58.99-99999); GLUCOSE 332 mg/dL (70-99); POTASSIUM 4.2 MEQ/L (3.7-5.4); SODIUM 132 MEQ/L (136-147); TOTAL BILIRUBIN 0.6 MG/DL (0.0-1.0); TOTAL PROTEIN 6.6 G/DL (6.4-8.3); UREA NITROGEN (BUN) 59 mg/dL (9-23); VANCOMYCIN, TROUGH 16.7 MCG/ML (10-20)
[2017-10-17 06:03] LABS: CREATININE 4.7 MG/DL (0.6-1.3)
[2017-10-17] MEDS ORDERED: PREDNISONE10 MG PO (15:11)
[2017-10-17] MEDS ORDERED: LEVAQUIN500 MG PO (15:11)
[2017-10-17 16:00] VITALS: BP 135/85
== END 2017-10-17 18:00 | disposition home or self-care (01) | DRG 177 ==
LOC: EME 17:02 → EDOF 22:23 → 4EAST 22:23 → ENRESERV 22:25 → 4EAST 10-14 00:10
PROVIDERS: Emergency Medicine Emergency Medical Services; Hospitalist; Internal Medicine; Internal Medicine Cardiovascular Disease; Student in an Organized Health Care Education/Training Program
DX: J69.0 Pneumonitis due to inhalation of food and vomit (principal); J18.9 Pneumonia, unspecified organism; I13.2 Hypertensive heart and chronic kidney disease with heart failure and with stage 5 chronic kidney disease, or end stage renal disease; E11.649 Type 2 diabetes mellitus with hypoglycemia without coma; E11.65 Type 2 diabetes mellitus with hyperglycemia; E78.5 Hyperlipidemia, unspecified; R09.02 Hypoxemia; E11.22 Type 2 diabetes mellitus with diabetic chronic kidney disease; J43.9 Emphysema, unspecified; N18.6 End stage renal disease; G89.4 Chronic pain syndrome; I45.10 Unspecified right bundle-branch block; R33.9 Retention of urine, unspecified; I47.1 Supraventricular tachycardia; I50.9 Heart failure, unspecified; R13.10 Dysphagia, unspecified; K21.9 Gastro-esophageal reflux disease without esophagitis; F41.9 Anxiety disorder, unspecified; Z79.84 Long term (current) use of oral hypoglycemic drugs; Z99.2 Dependence on renal dialysis; Z79.891 Long term (current) use of opiate analgesic; Z79.4 Long term (current) use of insulin; Z99.81 Dependence on supplemental oxygen; Z98.1 Arthrodesis status; Z79.82 Long term (current) use of aspirin; Z90.49 Acquired absence of other specified parts of digestive tract; Z85.528 Personal history of other malignant neoplasm of kidney; Y95 Nosocomial condition; E87.5 Hyperkalemia; Z90.81 Acquired absence of spleen; Z86.74 Personal history of sudden cardiac arrest; R41.82 Altered mental status, unspecified
CPT/HCPCS: 70450; 71020; 74230; 80048; 80053; 80202; 81003; 82140; 82948; 83036; 83605; 83735; 84484; 85025; 85027; 85610; 85730; 87040; 87641; 92526 GN; 92610 GN; 92611 GN; 93005; 94640; 94640 76; 94799; 99202; 99281; 99285; C9113; J0360; J0456; J0692; J1644; J1815; J2920; J3370; J7030; J7040; J7050; S0028

== ENCOUNTER 2018-01-16 14:23 | Emergency (ER) | payer OTHER ==
[~2018-01-16] VITALS: Ht 162.6 cm; Wt 70.4 kg
[~2018-01-16 14:23] MED LIST changes: +ENULOSE10 GM/15 M PO; +LEVAQUIN500 MG PO; +LEVEMIR100 UNIT/2 SC
[2018-01-16 14:56] LABS: HEMATOCRIT 28.5 % (38.0-50.0); HEMOGLOBIN 9.2 G/DL (12.5-16.6); MCH 30.5 PG (29.0-34.0); MCHC 32.3 G/DL (30.0-36.0); MCV 94.4 FL (86-99); PLATELET COUNT 179 K/uL (156-360); RBC DIS.WIDTH-CV 15.4 % (11.8-14.6); RBC DIS.WIDTH-SD 53.5 % (39-53); RED BLOOD COUNT 3.02 M/uL (4.00-5.50); WHITE BLOOD COUNT 14.7 K/uL (4.1-10.2)
[2018-01-16 15:09] LABS: ALBUMIN 3.6 g/dL (3.2-4.8); CHLORIDE 91 mEq/L (99-109); POTASSIUM 5.6 mEq/L (3.7-5.4); SODIUM 134 mEq/L (136-147)
[2018-01-16 15:11] LABS: GLUCOSE 141 mg/dL (70-99); TOTAL PROTEIN 6.6 g/dL (6.4-8.3)
[2018-01-16 15:13] LABS: TOTAL BILIRUBIN 0.6 mg/dL (0.0-1.0)
[2018-01-16 15:15] LABS: ALKALINE PHOSPHATASE 167 IU/L (3-129); CREATININE 9.6 mg/dL (0.6-1.3); GFR ESTIMATE (CALCULATED) 6 mL/min/ (58.99-99999)
[2018-01-16 15:16] LABS: UREA NITROGEN (BUN) 66 mg/dL (9-23)
[2018-01-16 15:17] LABS: AST (GOT) 27 IU/L (2-34)
[2018-01-16 15:18] LABS: ALT (GPT) 19 IU/L (3-49)
[2018-01-16] MEDS ORDERED: CIPRO500 MG/5 M PO ×2 (16:01→16:35)
[2018-01-16 19:09] VITALS: BP 109/57
== END 2018-01-16 19:09 | disposition home or self-care (01) ==
LOC: EME 14:23
PROVIDERS: Emergency Medicine Emergency Medical Services
DX: J20.9 Acute bronchitis, unspecified (principal); J45.901 Unspecified asthma with (acute) exacerbation; E87.5 Hyperkalemia; E11.22 Type 2 diabetes mellitus with diabetic chronic kidney disease; I12.9 Hypertensive chronic kidney disease with stage 1 through stage 4 chronic kidney disease, or unspecified chronic kidney disease; N18.9 Chronic kidney disease, unspecified; Z99.2 Dependence on renal dialysis; Z87.891 Personal history of nicotine dependence; F41.9 Anxiety disorder, unspecified; K21.9 Gastro-esophageal reflux disease without esophagitis
CPT/HCPCS: 71045; 80053; 83880; 85027; 92610 GN; 94640; 99281; 99284; G8996 GN CK; G8998 GN CJ

== ENCOUNTER → 2018-01-22 | Outpatient (CLI) | payer OTHER ==
[~2018-01-22] MED LIST changes: +CIPRO500 MG/5 M PO
== END | disposition home or self-care (01) ==
DX: R13.12 Dysphagia, oropharyngeal phase (principal); Z87.09 Personal history of other diseases of the respiratory system; Z87.01 Personal history of pneumonia (recurrent); Z87.19 Personal history of other diseases of the digestive system
CPT/HCPCS: 92611 GN; G8996 GN; G8997 GN; G8998 GN

== ENCOUNTER 2018-02-07 16:20 | Inpatient (IN) | payer OTHER ==
[~2018-02-07] VITALS: Ht 167.6 cm; Wt 64.0 kg
[2018-02-07 16:59] LABS: BASOPHIL (%) 0.3 % (0-1); EOSINOPHIL (%) 0.6 % (0-5); EOSINOPHIL COUNT 0.1 K/uL (0-0.3); HEMATOCRIT 37.1 % (38.0-50.0); IMMATURE GRANULOCYTE (%) 0.5 % (0.0-0.7); LYMPHOCYTE (%) 4.1 % (15-42); LYMPHOCYTE COUNT 0.5 K/uL (1.0-2.8); MCH 29.7 PG (29.0-34.0); MCV 95.9 FL (86-99); MONOCYTE COUNT 0.8 K/uL (0-0.8); NEUTROPHIL (%) 87.5 % (45-76); NEUTROPHIL COUNT 10.3 K/uL (1.8-6.4); PLATELET COUNT 231 K/uL (156-360); RBC DIS.WIDTH-CV 15.6 % (11.8-14.6); WHITE BLOOD COUNT 11.8 K/uL (4.1-10.2)
[2018-02-07 17:03] LABS: INTER. NORMALIZED RATIO 1.1
[2018-02-07 17:06] LABS: PTT 28.8 SEC (25-37)
[2018-02-07 17:10] LABS: HEMOGLOBIN 11.5 G/DL (12.5-16.6); RED BLOOD COUNT 3.87 M/uL (4.00-5.50)
[2018-02-07 17:18] LABS: TROP-I INTERPRETATION NEGATIVE; TROPONIN-I 0.06 ng/mL (0.0-0.30)
[2018-02-07 17:32] LABS: CHLORIDE 95 mEq/L (99-109); POTASSIUM 4.6 mEq/L (3.7-5.4); SODIUM 138 mEq/L (136-147)
[2018-02-07 17:33] LABS: MAGNESIUM 2.2 mg/dL (1.3-2.7)
[2018-02-07 17:35] LABS: GLUCOSE 125 mg/dL (70-99); TOTAL PROTEIN 7.8 g/dL (6.4-8.3)
[2018-02-07 17:36] LABS: TOTAL BILIRUBIN 0.7 mg/dL (0.0-1.0)
[2018-02-07 17:37] LABS: SERUM ETHYL ALCOHOL < 10 mg/dL
[2018-02-07 17:38] LABS: ALKALINE PHOSPHATASE 216 IU/L (3-129); CREATININE 4.8 mg/dL (0.6-1.3); GFR ESTIMATE (CALCULATED) 13 mL/min/ (58.99-99999)
[2018-02-07 17:39] LABS: UREA NITROGEN (BUN) 25 mg/dL (9-23)
[2018-02-07 17:40] LABS: AST (GOT) 28 IU/L (2-34)
[2018-02-07 17:41] LABS: ALT (GPT) 23 IU/L (3-49); CREATINE KINASE 254 IU/L (1-294); TOTAL CK 254 IU/L (1-294)
[2018-02-07 17:58] LABS: APPEARANCE SL.HAZY ((CLEAR)); BILIRUBIN NEGATIVE; BLOOD SMALL; COLOR YELLOW ((YELLOW)); GLUCOSE (STRIP) NEGATIVE; KETONES NEGATIVE; LEUKOCYTES MODERATE; NITRITE POSITIVE; PROTEIN (STRIP) 100; SPECIFIC GRAVITY 1.012 (1.000-1.030); UROBILINOGEN 0.2 MG/DL (0.2-1.0)
[2018-02-07] MEDS ORDERED: ZOFRAN4 MG PO (18:13)
[2018-02-07 18:14] LABS: AMPHETAMINE NEGATIVE (500 ng/mL); BACTERIA NONE SEEN /HPF; BARBITURATES NEGATIVE (200 ng/mL); BENZODIAZEPINES PRESUMPTIVE POSITIVE (150 ng/mL); BUPRENORPHINE NEGATIVE (10 ng/mL); COCAINE NEGATIVE (150 ng/mL); EPITHELIAL CELLS RARE /HPF; METHADONE PRESUMPTIVE POSITIVE (200 ng/mL); METHAMPHETAMINE NEGATIVE (500 ng/mL); MUCUS NONE SEEN /LPF; OPIATES (MORPHINE) PRESUMPTIVE POSITIVE (100 ng/mL); OXYCODONE NEGATIVE (100 ng/mL); PHENCYCLIDINE NEGATIVE (25 ng/mL); PROPOXYPHENE NEGATIVE (300 ng/mL); RED BLOOD CELLS 0-5 /HPF (0-5); THC CANNABINOIDS NEGATIVE (50 ng/mL); TRICYCLIC ANTIDEPRESSANTS NEGATIVE (300 ng/mL); UCUL ADDED? YES; WHITE BLOOD CELLS TNTC /HPF (0-5)
[2018-02-07] MEDS ORDERED: NORMODYNE,TRAN200 MG PO (18:24)
[2018-02-07 18:28] LABS: CKMB RELATIVE INDEX 3.5 (0.0-3.9)
[2018-02-07 18:49] LABS: BENZODIAZEPINES, URINE SCREEN POSITIVE (200 ng/mL)
[2018-02-07 23:22] VITALS: BP 155/72
[2018-02-08 06:48] LABS: BASOPHIL (%) 0.4 % (0-1); EOSINOPHIL (%) 0.8 % (0-5); EOSINOPHIL COUNT 0.1 K/uL (0-0.3); HEMATOCRIT 36.3 % (38.0-50.0); HEMOGLOBIN 10.7 G/DL (12.5-16.6); IMMATURE GRANULOCYTE (%) 0.3 % (0.0-0.7); LYMPHOCYTE (%) 7.7 % (15-42); LYMPHOCYTE COUNT 0.7 K/uL (1.0-2.8); MCHC 29.5 G/DL (30.0-36.0); MCV 98.4 FL (86-99); MONOCYTE (%) 10.9 % (3-12); NEUTROPHIL (%) 79.9 % (45-76); NEUTROPHIL COUNT 7.6 K/uL (1.8-6.4); PLATELET COUNT 199 K/uL (156-360); RBC DIS.WIDTH-CV 15.9 % (11.8-14.6); RBC DIS.WIDTH-SD 56.1 % (39-53); RED BLOOD COUNT 3.69 M/uL (4.00-5.50); WHITE BLOOD COUNT 9.5 K/uL (4.1-10.2)
[2018-02-08 07:11] LABS: CHLORIDE 95 MEQ/L (99-109); GFR ESTIMATE (CALCULATED) 10 mL/min/ (58.99-99999); POTASSIUM 4.9 MEQ/L (3.7-5.4); SODIUM 140 MEQ/L (136-147); UREA NITROGEN (BUN) 32 mg/dL (9-23)
[2018-02-08 07:18] LABS: GLUCOSE 84 mg/dL (70-99)
[2018-02-08 08:29] VITALS: BP 151/63
[2018-02-08 16:24] VITALS: BP 132/56
[2018-02-08 23:11] VITALS: BP 151/65
[2018-02-08] MEDS ORDERED: DESCOVY 200-251 EACH PO (23:56)
[2018-02-08] MEDS ORDERED: EDURANT25 MG PO (23:56)
[2018-02-08] MEDS ORDERED: TIVICAY50 MG PO (23:57)
[2018-02-09 02:09] LABS: GLUCOSE 141 mg/dL (70-99)
[2018-02-09 06:42] LABS: BASOPHIL (%) 0.3 % (0-1); EOSINOPHIL (%) 1.7 % (0-5); EOSINOPHIL COUNT 0.2 K/uL (0-0.3); HEMATOCRIT 29.3 % (38.0-50.0); HEMOGLOBIN 8.8 G/DL (12.5-16.6); IMMATURE GRANULOCYTE (%) 0.3 % (0.0-0.7); LYMPHOCYTE (%) 7.3 % (15-42); LYMPHOCYTE COUNT 0.7 K/uL (1.0-2.8); MCH 28.8 PG (29.0-34.0); MCV 95.8 FL (86-99); MONOCYTE (%) 8.9 % (3-12); MONOCYTE COUNT 0.8 K/uL (0-0.8); NEUTROPHIL (%) 81.5 % (45-76); NEUTROPHIL COUNT 7.6 K/uL (1.8-6.4); PLATELET COUNT 187 K/uL (156-360); RBC DIS.WIDTH-CV 15.8 % (11.8-14.6); RBC DIS.WIDTH-SD 54.7 % (39-53); RED BLOOD COUNT 3.06 M/uL (4.00-5.50); WHITE BLOOD COUNT 9.3 K/uL (4.1-10.2)
[2018-02-09 07:07] LABS: ALBUMIN 3.4 G/DL (3.2-4.8); CHLORIDE 95 MEQ/L (99-109); GFR ESTIMATE (CALCULATED) 7 mL/min/ (58.99-99999); GLUCOSE 120 mg/dL (70-99); PHOSPHORUS 6.6 mg/dL (2.5-4.9); POTASSIUM 4.8 MEQ/L (3.7-5.4); SODIUM 137 MEQ/L (136-147); VANCOMYCIN, TROUGH 17.1 MCG/ML (10-20)
[2018-02-09 07:08] LABS: CREATININE 8.1 MG/DL (0.6-1.3); UREA NITROGEN (BUN) 49 mg/dL (9-23)
[2018-02-09 08:27] VITALS: BP 156/68
[2018-02-09 15:45] LABS: BASOPHIL (%) 0.3 % (0-1); EOSINOPHIL (%) 2.2 % (0-5); EOSINOPHIL COUNT 0.2 K/uL (0-0.3); HEMATOCRIT 31.8 % (38.0-50.0); HEMOGLOBIN 9.9 G/DL (12.5-16.6); IMMATURE GRANULOCYTE (%) 0.6 % (0.0-0.7); LYMPHOCYTE (%) 8.5 % (15-42); LYMPHOCYTE COUNT 0.9 K/uL (1.0-2.8); MCH 30.2 PG (29.0-34.0); MCHC 31.1 G/DL (30.0-36.0); MONOCYTE (%) 8.5 % (3-12); MONOCYTE COUNT 0.9 K/uL (0-0.8); NEUTROPHIL (%) 79.9 % (45-76); PLATELET COUNT 203 K/uL (156-360); RBC DIS.WIDTH-CV 15.9 % (11.8-14.6); RBC DIS.WIDTH-SD 55.1 % (39-53); RED BLOOD COUNT 3.28 M/uL (4.00-5.50)
[2018-02-09 15:57] VITALS: BP 159/65
[2018-02-09 16:05] LABS: TROP-I INTERPRETATION NEGATIVE; TROPONIN-I 0.05 ng/mL (0.0-0.30)
[2018-02-09 16:10] LABS: ALBUMIN 3.6 G/DL (3.2-4.8); ALKALINE PHOSPHATASE 119 IU/L (3-129); ALT (GPT) 15 IU/L (3-49); AST (GOT) 17 IU/L (2-34); CHLORIDE 97 MEQ/L (99-109); CREATININE 8.2 MG/DL (0.6-1.3); GFR ESTIMATE (CALCULATED) 7 mL/min/ (58.99-99999); GLUCOSE 161 mg/dL (70-99); POTASSIUM 4.4 MEQ/L (3.7-5.4); SODIUM 139 MEQ/L (136-147); TOTAL BILIRUBIN 0.5 MG/DL (0.0-1.0); TOTAL PROTEIN 6.9 G/DL (6.4-8.3); UREA NITROGEN (BUN) 50 mg/dL (9-23)
[2018-02-09 16:49] VITALS: BP 159/65
[2018-02-09 16:50] VITALS: BP 159/65
[2018-02-09 16:56] VITALS: BP 134/58
[2018-02-09 17:31] LABS: GLUCOSE 197 mg/dL (70-99)
[2018-02-09 20:00] VITALS: BP 179/86
[2018-02-10] VITALS (12 sets, daily range): BP systolic 114–173; BP diastolic 52–82
[2018-02-10 05:38] LABS: BASOPHIL (%) 0.3 % (0-1); EOSINOPHIL (%) 1.2 % (0-5); EOSINOPHIL COUNT 0.1 K/uL (0-0.3); HEMATOCRIT 31.1 % (38.0-50.0); HEMOGLOBIN 8.1 G/DL (12.5-16.6); IMMATURE GRANULOCYTE (%) 0.4 % (0.0-0.7); LYMPHOCYTE (%) 4.1 % (15-42); LYMPHOCYTE COUNT 0.5 K/uL (1.0-2.8); MCH 28.9 PG (29.0-34.0); MONOCYTE (%) 5.2 % (3-12); MONOCYTE COUNT 0.6 K/uL (0-0.8); NEUTROPHIL (%) 88.8 % (45-76); NEUTROPHIL COUNT 10.3 K/uL (1.8-6.4); PLATELET COUNT 178 K/uL (156-360); RBC DIS.WIDTH-CV 16.3 % (11.8-14.6); RBC DIS.WIDTH-SD 66.4 % (39-53); WHITE BLOOD COUNT 11.6 K/uL (4.1-10.2)
[2018-02-10 05:41] LABS: MCV 111.1 FL (86-99)
[2018-02-10 08:45] LABS: BASOPHIL (%) 0.2 % (0-1); EOSINOPHIL (%) 1.7 % (0-5); EOSINOPHIL COUNT 0.2 K/uL (0-0.3); HEMATOCRIT 30.6 % (38.0-50.0); HEMOGLOBIN 9.4 G/DL (12.5-16.6); IMMATURE GRANULOCYTE (%) 0.5 % (0.0-0.7); LYMPHOCYTE (%) 6.7 % (15-42); LYMPHOCYTE COUNT 0.9 K/uL (1.0-2.8); MCH 29.6 PG (29.0-34.0); MCHC 30.7 G/DL (30.0-36.0); MONOCYTE (%) 6.2 % (3-12); MONOCYTE COUNT 0.8 K/uL (0-0.8); NEUTROPHIL (%) 84.7 % (45-76); NEUTROPHIL COUNT 11.2 K/uL (1.8-6.4); PLATELET COUNT 221 K/uL (156-360); RBC DIS.WIDTH-CV 15.7 % (11.8-14.6); RBC DIS.WIDTH-SD 54.9 % (39-53); RED BLOOD COUNT 3.18 M/uL (4.00-5.50); WHITE BLOOD COUNT 13.2 K/uL (4.1-10.2)
[2018-02-10 08:51] LABS: MCV 96.2 FL (86-99)
[2018-02-10 08:55] LABS: ALBUMIN 3.4 G/DL (3.2-4.8); ALKALINE PHOSPHATASE 101 IU/L (3-129); ALT (GPT) 14 IU/L (3-49); AST (GOT) 16 IU/L (2-34); CHLORIDE 93 MEQ/L (99-109); CREATININE 8.9 MG/DL (0.6-1.3); GFR ESTIMATE (CALCULATED) 6 mL/min/ (58.99-99999); PHOSPHORUS 6.6 mg/dL (2.5-4.9); SODIUM 133 MEQ/L (136-147); TOTAL BILIRUBIN 0.5 MG/DL (0.0-1.0); TOTAL PROTEIN 6.6 G/DL (6.4-8.3); UREA NITROGEN (BUN) 54 mg/dL (9-23)
[2018-02-10 08:56] LABS: GLUCOSE 77 mg/dL (70-99); POTASSIUM 5.3 MEQ/L (3.7-5.4)
[2018-02-10 12:22] LABS: TROP-I INTERPRETATION NEGATIVE; TROPONIN-I 0.05 ng/mL (0.0-0.30)
[2018-02-10 17:40] LABS: VANCOMYCIN, TROUGH 13.5 MCG/ML (10-20)
[2018-02-10 18:48] LABS: THYROTROPIN (TSH) 0.83 MIU/L (0.4-5.5)
[2018-02-11] VITALS (7 sets, daily range): BP systolic 118–164; BP diastolic 60–85
[2018-02-11 05:56] LABS: ALBUMIN 3.6 G/DL (3.2-4.8); CHLORIDE 96 MEQ/L (99-109); IRON 60 MCG/DL (35-150); POTASSIUM 5.1 MEQ/L (3.7-5.4); SODIUM 135 MEQ/L (136-147); TRANSFERRIN (TIBC) 153.9 mg/dL (215-380); TRANSFERRIN SATUR. 39 % (20-55)
[2018-02-11 06:06] LABS: CREATININE 5.4 MG/DL (0.6-1.3); GFR ESTIMATE (CALCULATED) 11 mL/min/ (58.99-99999); GLUCOSE 177 mg/dL (70-99); PHOSPHORUS 4.1 mg/dL (2.5-4.9); UREA NITROGEN (BUN) 25 mg/dL (9-23)
[2018-02-11 06:23] LABS: ALBUMIN 3.7 G/DL (3.2-4.8); ALKALINE PHOSPHATASE 104 IU/L (3-129); ALT (GPT) 13 IU/L (3-49); AST (GOT) 18 IU/L (2-34); CHLORIDE 94 MEQ/L (99-109); CREATININE 5.4 MG/DL (0.6-1.3); GFR ESTIMATE (CALCULATED) 11 mL/min/ (58.99-99999); GLUCOSE 174 mg/dL (70-99); POTASSIUM 4.8 MEQ/L (3.7-5.4); SODIUM 132 MEQ/L (136-147); TOTAL BILIRUBIN 0.5 MG/DL (0.0-1.0); TOTAL PROTEIN 6.4 G/DL (6.4-8.3); UREA NITROGEN (BUN) 25 mg/dL (9-23); VANCOMYCIN, TROUGH 20.1 MCG/ML (10-20)
[2018-02-11 07:02] LABS: BASOPHIL (%) 0.9 % (0-1); BASOPHIL COUNT 0.1 K/uL (0-0.1); EOSINOPHIL COUNT 0.3 K/uL (0-0.3); HEMATOCRIT 33.6 % (38.0-50.0); HEMOGLOBIN 9.6 G/DL (12.5-16.6); IMM.RETIC FRACTION 13.5 % (3-19); IMMATURE GRANULOCYTE (%) 0.4 % (0.0-0.7); LYMPHOCYTE (%) 7.7 % (15-42); LYMPHOCYTE COUNT 0.8 K/uL (1.0-2.8); MCH 28.7 PG (29.0-34.0); MCHC 28.6 G/DL (30.0-36.0); MONOCYTE COUNT 0.9 K/uL (0-0.8); NEUTROPHIL COUNT 7.8 K/uL (1.8-6.4); NRBC (%) 0.3 /100 WBC (0-0); PLATELET COUNT 217 K/uL (156-360); RBC DIS.WIDTH-CV 15.6 % (11.8-14.6); RBC DIS.WIDTH-SD 57.9 % (39-53); RED BLOOD COUNT 3.34 M/uL (4.00-5.50); RETIC HGB EQUIVALENT 25.5 (28-36); WHITE BLOOD COUNT 9.9 K/uL (4.1-10.2)
[2018-02-11 07:03] LABS: MCV 100.6 FL (86-99); RETICULOCYTE COUNT 2.4 % (0.5-1.8)
[2018-02-11 08:18] LABS: FERRITIN 1483 NG/ML (22-322)
[2018-02-11 09:31] LABS: BASE EXCESS 4.2 mEq/L (-3 to +3); BICARBONATE 31.1 mEq/L (22-26); CARBOXY HGB 0.7 % (0-5); METHEMOGLOBIN 0.7 % (0-1.5); PCO2 59 mm Hg (35-45); pH 7.33 (7.35-7.45)
[2018-02-11 09:32] LABS: COMMENTS - BLOOD GASES NAC+; DEVICE CANNULA; O2 FLOW 3 L/MIN; PO2 91 mm Hg (80-100); SITE RR
[2018-02-12] VITALS (7 sets, daily range): BP systolic 134–176; BP diastolic 70–87
[2018-02-12 05:19] LABS: BASOPHIL (%) 0.7 % (0-1); BASOPHIL COUNT 0.1 K/uL (0-0.1); EOSINOPHIL COUNT 0.3 K/uL (0-0.3); HEMATOCRIT 31.6 % (38.0-50.0); HEMOGLOBIN 9.2 G/DL (12.5-16.6); LYMPHOCYTE (%) 9.3 % (15-42); LYMPHOCYTE COUNT 0.8 K/uL (1.0-2.8); MCHC 29.1 G/DL (30.0-36.0); MCV 99.7 FL (86-99); MONOCYTE (%) 9.2 % (3-12); MONOCYTE COUNT 0.8 K/uL (0-0.8); NEUTROPHIL (%) 76.8 % (45-76); NEUTROPHIL COUNT 6.9 K/uL (1.8-6.4); PLATELET COUNT 225 K/uL (156-360); RBC DIS.WIDTH-CV 15.5 % (11.8-14.6); RBC DIS.WIDTH-SD 56.1 % (39-53); RED BLOOD COUNT 3.17 M/uL (4.00-5.50)
[2018-02-12 05:52] LABS: ALBUMIN 3.6 G/DL (3.2-4.8); ALKALINE PHOSPHATASE 97 IU/L (3-129); ALT (GPT) 12 IU/L (3-49); AST (GOT) 13 IU/L (2-34); CHLORIDE 97 MEQ/L (99-109); CREATININE 7.2 MG/DL (0.6-1.3); GFR ESTIMATE (CALCULATED) 8 mL/min/ (58.99-99999); GLUCOSE 104 mg/dL (70-99); GLUCOSE 105 mg/dL (70-99); PHOSPHORUS 4.4 mg/dL (2.5-4.9); POTASSIUM 4.7 MEQ/L (3.7-5.4); SODIUM 138 MEQ/L (136-147); SODIUM 140 MEQ/L (136-147); TOTAL BILIRUBIN 0.4 MG/DL (0.0-1.0); TOTAL PROTEIN 6.2 G/DL (6.4-8.3); UREA NITROGEN (BUN) 29 mg/dL (9-23)
[2018-02-13 03:33] VITALS: BP 115/65
[2018-02-13 05:57] LABS: ALBUMIN 3.2 G/DL (3.2-4.8); CHLORIDE 96 MEQ/L (99-109); GFR ESTIMATE (CALCULATED) 13 mL/min/ (58.99-99999); GLUCOSE 151 mg/dL (70-99); POTASSIUM 4.3 MEQ/L (3.7-5.4); SODIUM 135 MEQ/L (136-147); UREA NITROGEN (BUN) 19 mg/dL (9-23)
[2018-02-13 05:59] LABS: CREATININE 4.8 MG/DL (0.6-1.3)
[2018-02-13 09:55] VITALS: BP 129/66
[2018-02-13 13:00] VITALS: BP 151/79
[2018-02-13] MEDS ORDERED: FLOVENT 11120 INHALA IH (14:55)
== END 2018-02-13 17:42 | disposition home health service (06) | DRG 193 ==
LOC: EME → EDBD 16:20 → EME 16:20 → 5EAST 20:49 → EDOF 20:49 → 4WEST 20:49 → ENRESERV 20:50 → 5EAST 22:05 → ENRESERV 02-09 18:56 → 4WEST 02-09 20:12 → CANRESERV 02-10 13:27 → ENRESERV 02-10 13:27 → CANRESERV 02-10 13:39 → ENRESERV 02-10 13:39 → CANRESERV 02-10 13:40 → ENRESERV 02-10 13:56 → CANRESERV 02-10 13:56 → ENRESERV 02-10 14:14 → 4EAST 02-10 16:47
PROVIDERS: Emergency Medicine; Hospitalist; Internal Medicine Nephrology
PROC: 5A1D70Z Performance of Urinary Filtration, Intermittent, Less than 6 Hours Per Day (ICD-10-PCS; principal; 2018-02-09)
DX: J15.9 Unspecified bacterial pneumonia (principal); J96.11 Chronic respiratory failure with hypoxia; I50.32 Chronic diastolic (congestive) heart failure; E11.649 Type 2 diabetes mellitus with hypoglycemia without coma; I13.2 Hypertensive heart and chronic kidney disease with heart failure and with stage 5 chronic kidney disease, or end stage renal disease; E11.22 Type 2 diabetes mellitus with diabetic chronic kidney disease; N39.0 Urinary tract infection, site not specified; N18.6 End stage renal disease; J43.9 Emphysema, unspecified; E78.5 Hyperlipidemia, unspecified; G89.29 Other chronic pain; F41.9 Anxiety disorder, unspecified; I48.0 Paroxysmal atrial fibrillation; N31.9 Neuromuscular dysfunction of bladder, unspecified; D63.1 Anemia in chronic kidney disease; R63.0 Anorexia; Y95 Nosocomial condition; K21.9 Gastro-esophageal reflux disease without esophagitis; Z53.20 Procedure and treatment not carried out because of patient's decision for unspecified reasons; Z79.891 Long term (current) use of opiate analgesic; Z99.81 Dependence on supplemental oxygen; Z99.2 Dependence on renal dialysis; Z98.1 Arthrodesis status; Z91.15 Patient's noncompliance with renal dialysis; Z90.81 Acquired absence of spleen; Z87.891 Personal history of nicotine dependence; Z80.9 Family history of malignant neoplasm, unspecified; Z90.49 Acquired absence of other specified parts of digestive tract
CPT/HCPCS: 36600; 70450; 71045; 71046; 78582; 80048; 80053; 80069; 80202; 81003; 82140; 82272; 82550; 82550 91; 82553; 82607; 82728; 82746; 82803; 82948; 83540; 83605; 83735; 83880; 84443; 84466; 84484; 84999; 85025; 85025 91; 85046; 85379; 85610; 85730; 87040; 87077; 87086; 87186; 87641; 93005; 93306; 93970; 94640; 94640 76; 94799; 99202; 99281; 99285; A9539; A9540; G0480; J0881; J1644; J2405; J2543; J3370; J7050

== ENCOUNTER 2018-03-05 17:49 | Inpatient (IN) | payer OTHER ==
[~2018-03-05] VITALS: Ht 165.1 cm; Wt 62.3 kg
[~2018-03-05 17:49] MED LIST changes: +DESCOVY 200-251 EACH PO; +EDURANT25 MG PO; +FLOVENT 11120 INHALA IH; +TIVICAY50 MG PO; +ZOFRAN4 MG PO
[2018-03-05 18:56] LABS: BASOPHIL (%) 0.7 % (0-1); BASOPHIL COUNT 0.1 K/uL (0-0.1); EOSINOPHIL (%) 3.5 % (0-5); EOSINOPHIL COUNT 0.4 K/uL (0-0.3); HEMATOCRIT 39.1 % (38.0-50.0); HEMOGLOBIN 11.9 G/DL (12.5-16.6); IMMATURE GRANULOCYTE (%) 0.6 % (0.0-0.7); LYMPHOCYTE (%) 7.7 % (15-42); LYMPHOCYTE COUNT 0.8 K/uL (1.0-2.8); MCH 28.3 PG (29.0-34.0); MCHC 30.4 G/DL (30.0-36.0); MCV 93.1 FL (86-99); MONOCYTE (%) 6.6 % (3-12); MONOCYTE COUNT 0.7 K/uL (0-0.8); NEUTROPHIL (%) 80.9 % (45-76); NEUTROPHIL COUNT 8.2 K/uL (1.8-6.4); PLATELET COUNT 268 K/uL (156-360); WHITE BLOOD COUNT 10.1 K/uL (4.1-10.2)
[2018-03-05 19:02] LABS: ALBUMIN 4.1 g/dL (3.2-4.8); CHLORIDE 94 mEq/L (99-109); POTASSIUM 4.1 mEq/L (3.7-5.4); SODIUM 138 mEq/L (136-147)
[2018-03-05 19:04] LABS: GLUCOSE 94 mg/dL (70-99)
[2018-03-05 19:05] LABS: TOTAL PROTEIN 9.3 g/dL (6.4-8.3)
[2018-03-05 19:06] LABS: TOTAL BILIRUBIN 0.5 mg/dL (0.0-1.0)
[2018-03-05 19:08] LABS: ALKALINE PHOSPHATASE 228 IU/L (3-129); CREATININE 3.6 mg/dL (0.6-1.3); GFR ESTIMATE (CALCULATED) 18 mL/min/ (58.99-99999)
[2018-03-05 19:09] LABS: UREA NITROGEN (BUN) 16 mg/dL (9-23)
[2018-03-05 19:10] LABS: AST (GOT) 22 IU/L (2-34)
[2018-03-05 19:11] LABS: ALT (GPT) 21 IU/L (3-49)
[2018-03-05 19:19] LABS: TROP-I INTERPRETATION NEGATIVE; TROPONIN-I 0.07 ng/mL (0.0-0.30)
[2018-03-05] MEDS ORDERED: XANAX1 MG PO (20:11)
[2018-03-05] MEDS ORDERED: LOW DOSE ASPIRI81 M1 PO (20:11)
[2018-03-05] MEDS ORDERED: LIPITOR40 MG PO (20:12)
[2018-03-05] MEDS ORDERED: FLOVENT 11120 INHALA IH (20:14)
[2018-03-05] MEDS ORDERED: NOVOLOG PE100 UNITS/ SC (20:15)
[2018-03-05] MEDS ORDERED: METHADONE10 MG PO (20:17)
[2018-03-05 22:15] VITALS: BP 167/73
[2018-03-06] VITALS (9 sets, daily range): BP systolic 108–177; BP diastolic 54–88
[2018-03-06 02:18] LABS: HEMATOCRIT 34.3 % (38.0-50.0); HEMOGLOBIN 10.4 G/DL (12.5-16.6); MCH 27.8 PG (29.0-34.0); MCHC 30.3 G/DL (30.0-36.0); MCV 91.7 FL (86-99); PLATELET COUNT 271 K/uL (156-360); RBC DIS.WIDTH-CV 16.1 % (11.8-14.6); RBC DIS.WIDTH-SD 54.3 % (39-53); RED BLOOD COUNT 3.74 M/uL (4.00-5.50); WHITE BLOOD COUNT 17.8 K/uL (4.1-10.2)
[2018-03-06 02:28] LABS: CHLORIDE 96 mEq/L (99-109); SODIUM 136 mEq/L (136-147)
[2018-03-06 02:29] LABS: GLUCOSE 65 mg/dL (70-99); POTASSIUM 5.1 mEq/L (3.7-5.4)
[2018-03-06 02:33] LABS: GFR ESTIMATE (CALCULATED) 15 mL/min/ (58.99-99999)
[2018-03-06 02:34] LABS: CREATININE 4.3 mg/dL (0.6-1.3); UREA NITROGEN (BUN) 19 mg/dL (9-23)
[2018-03-06 02:41] LABS: TROP-I INTERPRETATION NEGATIVE; TROPONIN-I 0.06 ng/mL (0.0-0.30)
[2018-03-06 15:53] LABS: APPEARANCE CLEAR ((CLEAR)); BILIRUBIN NEGATIVE; BLOOD MODERATE; COLOR STRAW ((YELLOW)); GLUCOSE (STRIP) NEGATIVE; KETONES NEGATIVE; LEUKOCYTES LARGE; NITRITE NEGATIVE; PROTEIN (STRIP) 30; SPECIFIC GRAVITY 1.002 (1.000-1.030); UROBILINOGEN 0.2 MG/DL (0.2-1.0)
[2018-03-06 16:05] LABS: BACTERIA RARE /HPF; CALCIUM OXALATE CRYSTALS 1+ /HPF; EPITHELIAL CELLS RARE /HPF; MUCUS NONE SEEN /LPF; RED BLOOD CELLS 0-5 /HPF (0-5)
[2018-03-07 03:13] VITALS: BP 132/60
[2018-03-07 05:43] LABS: CHLORIDE 93 MEQ/L (99-109); POTASSIUM 5.1 MEQ/L (3.7-5.4)
[2018-03-07 06:19] LABS: CREATININE 6.2 MG/DL (0.6-1.3); GFR ESTIMATE (CALCULATED) 10 mL/min/ (58.99-99999); GLUCOSE 132 mg/dL (70-99); SODIUM 129 MEQ/L (136-147); UREA NITROGEN (BUN) 33 mg/dL (9-23)
[2018-03-07 07:52] VITALS: BP 160/71
[2018-03-07 09:42] LABS: HEMATOCRIT 31.7 % (38.0-50.0); HEMOGLOBIN 9.5 G/DL (12.5-16.6); MCH 27.5 PG (29.0-34.0); MCV 91.9 FL (86-99); PLATELET COUNT 267 K/uL (156-360); RBC DIS.WIDTH-CV 16.5 % (11.8-14.6); RBC DIS.WIDTH-SD 55.3 % (39-53); RED BLOOD COUNT 3.45 M/uL (4.00-5.50)
[2018-03-07 13:20] VITALS: BP 136/63
[2018-03-07 15:52] VITALS: BP 147/67
[2018-03-07 19:00] VITALS: BP 136/63
[2018-03-07 22:30] VITALS: BP 117/70
[2018-03-08 04:00] VITALS: BP 137/63
[2018-03-08 05:14] LABS: HEMATOCRIT 31.4 % (38.0-50.0); HEMOGLOBIN 9.3 G/DL (12.5-16.6); MCH 27.9 PG (29.0-34.0); MCHC 29.6 G/DL (30.0-36.0); MCV 94.3 FL (86-99); PLATELET COUNT 251 K/uL (156-360); RBC DIS.WIDTH-CV 16.4 % (11.8-14.6); RBC DIS.WIDTH-SD 55.6 % (39-53); RED BLOOD COUNT 3.33 M/uL (4.00-5.50); WHITE BLOOD COUNT 9.5 K/uL (4.1-10.2)
[2018-03-08 07:51] VITALS: BP 140/65
[2018-03-08] MEDS ORDERED: LOPRESSOR25 MG PO (11:23)
[2018-03-08] MEDS ORDERED: LEVAQUIN750 MG PO (11:23)
[2018-03-08] MEDS ORDERED: LEVAQUIN500 MG PO (11:52)
[2018-03-08] MEDS ORDERED: MUCINEX1200 MG PO (13:16)
== END 2018-03-08 14:37 | disposition home health service (06) | DRG 193 ==
LOC: EME 17:49 → 4EAST 20:50 → EDOF 20:50 → ENRESERV 20:51 → 4EAST 22:07 → ENRESERV 03-08 11:19 → CANRESERV 03-08 11:19 → 4EAST 03-08 14:37
PROVIDERS: Emergency Medicine; Hospitalist; Internal Medicine
PROC: 5A1D70Z Performance of Urinary Filtration, Intermittent, Less than 6 Hours Per Day (ICD-10-PCS; principal; 2018-03-07)
DX: J18.9 Pneumonia, unspecified organism (principal); N18.6 End stage renal disease; F11.20 Opioid dependence, uncomplicated; I13.2 Hypertensive heart and chronic kidney disease with heart failure and with stage 5 chronic kidney disease, or end stage renal disease; J90 Pleural effusion, not elsewhere classified; N39.0 Urinary tract infection, site not specified; F33.9 Major depressive disorder, recurrent, unspecified; F05 Delirium due to known physiological condition; J44.0 Chronic obstructive pulmonary disease with (acute) lower respiratory infection; E11.649 Type 2 diabetes mellitus with hypoglycemia without coma; G89.4 Chronic pain syndrome; F17.210 Nicotine dependence, cigarettes, uncomplicated; E11.22 Type 2 diabetes mellitus with diabetic chronic kidney disease; E78.5 Hyperlipidemia, unspecified; I27.20 Pulmonary hypertension, unspecified; I50.9 Heart failure, unspecified; K21.9 Gastro-esophageal reflux disease without esophagitis; Y95 Nosocomial condition; F41.9 Anxiety disorder, unspecified; R94.31 Abnormal electrocardiogram [ECG] [EKG]; R63.0 Anorexia; T68.XXXA Hypothermia, initial encounter; H18.413 Arcus senilis, bilateral; Z99.2 Dependence on renal dialysis; Z90.81 Acquired absence of spleen; Z98.1 Arthrodesis status; Z79.82 Long term (current) use of aspirin; Z68.22 Body mass index [BMI] 22.0-22.9, adult; Z90.49 Acquired absence of other specified parts of digestive tract; Z88.6 Allergy status to analgesic agent; Z79.51 Long term (current) use of inhaled steroids; Z79.4 Long term (current) use of insulin
CPT/HCPCS: 71045; 71046; 71250; 80048; 80053; 81003; 82948; 83605; 84484; 85025; 85027; 87040; 87086; 87449; 87641; 93005; 94640; 94640 76; 94760; 94799; 99202; 99281; 99285; J0692; J1644; J1815; J1956; J3370

== ENCOUNTER 2018-03-16 19:41 | Observation (INO) | payer OTHER ==
[~2018-03-16] VITALS: Ht 167.6 cm; Wt 58.7 kg
[~2018-03-16 19:41] MED LIST changes: +LIPITOR40 MG PO; +LOW DOSE ASPIRI81 M1 PO; +MUCINEX1200 MG PO
[2018-03-16 20:12] LABS: HEMATOCRIT 36.5 % (38.0-50.0); HEMOGLOBIN 11.4 G/DL (12.5-16.6); MCH 28.2 PG (29.0-34.0); MCHC 31.2 G/DL (30.0-36.0); MCV 90.3 FL (86-99); PLATELET COUNT 207 K/uL (156-360); RBC DIS.WIDTH-SD 55.8 % (39-53); RED BLOOD COUNT 4.04 M/uL (4.00-5.50); WHITE BLOOD COUNT 17.1 K/uL (4.1-10.2)
[2018-03-16 20:15] LABS: BASE EXCESS 1.1 mEq/L (-3 to +3); BICARBONATE 26.6 mEq/L (22-26); CARBOXY HGB 2.2 % (0-5); COMMENTS - BLOOD GASES A+C+; DEVICE ROOM AIR; METHEMOGLOBIN 0.9 % (0-1.5); PCO2 45 mm Hg (35-45); PO2 58 mm Hg (80-100); SITE RR; TOTAL RESP RATE 26 resp/min; pH 7.38 (7.35-7.45)
[2018-03-16 20:21] LABS: ALBUMIN 3.6 g/dL (3.2-4.8); CHLORIDE 91 mEq/L (99-109); POTASSIUM 5.4 mEq/L (3.7-5.4); SODIUM 130 mEq/L (136-147)
[2018-03-16 20:24] LABS: GLUCOSE 144 mg/dL (70-99); TOTAL PROTEIN 7.9 g/dL (6.4-8.3)
[2018-03-16 20:26] LABS: TOTAL BILIRUBIN 0.7 mg/dL (0.0-1.0)
[2018-03-16 20:27] LABS: SERUM ETHYL ALCOHOL < 10 mg/dL
[2018-03-16 20:28] LABS: ALKALINE PHOSPHATASE 189 IU/L (3-129); CREATININE 10.5 mg/dL (0.6-1.3); GFR ESTIMATE (CALCULATED) 5 mL/min/ (58.99-99999)
[2018-03-16 20:29] LABS: AST (GOT) 20 IU/L (2-34); UREA NITROGEN (BUN) 69 mg/dL (9-23)
[2018-03-16 20:31] LABS: ACETAMINOPHEN (TYLENOL) < 10 mcg/mL (10-30); ALT (GPT) 15 IU/L (3-49); SALICYLATE < 5.0 MG/DL (15-30)
[2018-03-16 21:40] LABS: APPEARANCE SL.HAZY ((CLEAR)); BILIRUBIN NEGATIVE; BLOOD SMALL; COLOR YELLOW ((YELLOW)); GLUCOSE (STRIP) NEGATIVE; KETONES NEGATIVE; LEUKOCYTES MODERATE; NITRITE NEGATIVE; PROTEIN (STRIP) 100; SPECIFIC GRAVITY 1.015 (1.000-1.030); UROBILINOGEN 0.2 MG/DL (0.2-1.0)
[2018-03-16 21:46] LABS: AMPHETAMINE NEGATIVE (500 ng/mL); BARBITURATES NEGATIVE (200 ng/mL); BENZODIAZEPINES PRESUMPTIVE POSITIVE (150 ng/mL); BUPRENORPHINE NEGATIVE (10 ng/mL); COCAINE NEGATIVE (150 ng/mL); METHADONE PRESUMPTIVE POSITIVE (200 ng/mL); METHAMPHETAMINE NEGATIVE (500 ng/mL); OPIATES (MORPHINE) NEGATIVE (100 ng/mL); OXYCODONE NEGATIVE (100 ng/mL); PHENCYCLIDINE NEGATIVE (25 ng/mL); PROPOXYPHENE NEGATIVE (300 ng/mL); THC CANNABINOIDS NEGATIVE (50 ng/mL); TRICYCLIC ANTIDEPRESSANTS NEGATIVE (300 ng/mL)
[2018-03-16 22:21] LABS: BENZODIAZEPINES, URINE SCREEN POSITIVE (200 ng/mL)
[2018-03-16 22:23] LABS: BACTERIA 1+ /HPF; EPITHELIAL CELLS NONE SEEN /HPF; MUCUS 1+ /LPF; RED BLOOD CELLS 0-5 /HPF (0-5)
[2018-03-17 04:10] VITALS: BP 147/64
[2018-03-17 07:36] VITALS: BP 113/58
[2018-03-17 11:45] VITALS: BP 119/57
[2018-03-17 14:37] LABS: ALBUMIN 3.1 G/DL (3.2-4.8); CHLORIDE 90 MEQ/L (99-109); CREATININE 10.4 MG/DL (0.6-1.3); GFR ESTIMATE (CALCULATED) 5 mL/min/ (58.99-99999); GLUCOSE 184 mg/dL (70-99); PHOSPHORUS 6.5 mg/dL (2.5-4.9); POTASSIUM 4.4 MEQ/L (3.7-5.4); SODIUM 126 MEQ/L (136-147); UREA NITROGEN (BUN) 70 mg/dL (9-23)
[2018-03-17 18:09] VITALS: BP 154/71
[2018-03-17 19:47] VITALS: BP 160/72
[2018-03-18 04:00] VITALS: BP 148/77
[2018-03-18 05:57] LABS: BASOPHIL (%) 0.5 % (0-1); BASOPHIL COUNT 0.1 K/uL (0-0.1); EOSINOPHIL (%) 1.8 % (0-5); EOSINOPHIL COUNT 0.2 K/uL (0-0.3); HEMATOCRIT 38.7 % (38.0-50.0); HEMOGLOBIN 11.7 G/DL (12.5-16.6); IMMATURE GRANULOCYTE (%) 0.5 % (0.0-0.7); LYMPHOCYTE (%) 8.8 % (15-42); MCH 27.6 PG (29.0-34.0); MCHC 30.2 G/DL (30.0-36.0); MCV 91.3 FL (86-99); MONOCYTE (%) 8.9 % (3-12); NEUTROPHIL (%) 79.5 % (45-76); NEUTROPHIL COUNT 8.6 K/uL (1.8-6.4); PLATELET COUNT 254 K/uL (156-360); RBC DIS.WIDTH-SD 56.4 % (39-53); RED BLOOD COUNT 4.24 M/uL (4.00-5.50); WHITE BLOOD COUNT 10.8 K/uL (4.1-10.2)
[2018-03-18 06:20] LABS: CHLORIDE 91 MEQ/L (99-109); GFR ESTIMATE (CALCULATED) 10 mL/min/ (58.99-99999); POTASSIUM 4.5 MEQ/L (3.7-5.4); SODIUM 132 MEQ/L (136-147); UREA NITROGEN (BUN) 36 mg/dL (9-23)
[2018-03-18 06:22] LABS: GLUCOSE 79 mg/dL (70-99)
[2018-03-18 08:20] VITALS: BP 123/60
[2018-03-18 12:02] VITALS: BP 145/67
== END 2018-03-18 15:40 | disposition home or self-care (01) ==
LOC: EME → EDBD 19:41 → EME 19:41 → EDOF 03-17 01:58 → 5SOUTH 03-17 01:58 → ENRESERV 03-17 02:00 → 5SOUTH 03-17 03:42
PROVIDERS: Emergency Medicine; Hospitalist; Internal Medicine Nephrology
PROC: 5A1D70Z Performance of Urinary Filtration, Intermittent, Less than 6 Hours Per Day (ICD-10-PCS; principal; 2018-03-17)
DX: G92 Toxic encephalopathy (principal); T40.2X5A Adverse effect of other opioids, initial encounter; T42.4X5A Adverse effect of benzodiazepines, initial encounter; G89.29 Other chronic pain; M47.899 Other spondylosis, site unspecified; F11.20 Opioid dependence, uncomplicated; I12.0 Hypertensive chronic kidney disease with stage 5 chronic kidney disease or end stage renal disease; N18.6 End stage renal disease; Z99.2 Dependence on renal dialysis; E87.1 Hypo-osmolality and hyponatremia; D72.829 Elevated white blood cell count, unspecified; J18.9 Pneumonia, unspecified organism; J43.9 Emphysema, unspecified; Z90.81 Acquired absence of spleen; E78.5 Hyperlipidemia, unspecified; E11.22 Type 2 diabetes mellitus with diabetic chronic kidney disease; Z90.49 Acquired absence of other specified parts of digestive tract; M48.02 Spinal stenosis, cervical region; Z87.891 Personal history of nicotine dependence; Z98.1 Arthrodesis status
CPT/HCPCS: 36600; 70450; 71045; 72125; 80048; 80053; 80069; 81003; 82140; 82803; 82948; 83605; 84999; 85025; 85027; 87040; 87086; 93005; 94640 76; 99202; 99281; 99285; G0257; G0378; G0480; J0696; J1644; J1815; J2310

== ENCOUNTER 2018-04-16 22:11 | Observation (INO) | payer OTHER ==
[~2018-04-16] VITALS: Ht 167.6 cm; Wt 62.4 kg
[2018-04-16 22:58] LABS: HEMATOCRIT 40.6 % (38.0-50.0); HEMOGLOBIN 12.4 G/DL (12.5-16.6); MCHC 30.5 G/DL (30.0-36.0); MCV 91.6 FL (86-99); RBC DIS.WIDTH-SD 59.7 % (39-53); RED BLOOD COUNT 4.43 M/uL (4.00-5.50); WHITE BLOOD COUNT 9.8 K/uL (4.1-10.2)
[2018-04-16 23:07] LABS: CHLORIDE 98 mEq/L (99-109); POTASSIUM 5.4 mEq/L (3.7-5.4); SODIUM 139 mEq/L (136-147)
[2018-04-16 23:08] LABS: PLATELET COUNT 157 K/uL (156-360)
[2018-04-16 23:09] LABS: GLUCOSE 83 mg/dL (70-99)
[2018-04-16 23:13] LABS: CREATININE 7.2 mg/dL (0.6-1.3); GFR ESTIMATE (CALCULATED) 8 mL/min/ (58.99-99999)
[2018-04-16 23:14] LABS: UREA NITROGEN (BUN) 28 mg/dL (9-23)
[2018-04-16 23:17] LABS: TROP-I INTERPRETATION NEGATIVE; TROPONIN-I 0.05 ng/mL (0.0-0.30)
[2018-04-17 04:00] VITALS: BP 158/74
[2018-04-17 04:14] VITALS: BP 182/82
[2018-04-17 06:32] LABS: TROP-I INTERPRETATION NEGATIVE; TROPONIN-I 0.08 ng/mL (0.0-0.30)
[2018-04-17 06:52] VITALS: BP 166/75
[2018-04-17 11:07] VITALS: BP 153/72
[2018-04-17 12:40] LABS: TROP-I INTERPRETATION NEGATIVE; TROPONIN-I 0.06 ng/mL (0.0-0.30)
[2018-04-17 15:02] VITALS: BP 131/61
[2018-04-18 00:18] VITALS: BP 146/64
[2018-04-18 05:18] LABS: BASOPHIL (%) 0.4 % (0-1); EOSINOPHIL COUNT 0.5 K/uL (0-0.3); HEMATOCRIT 37.1 % (38.0-50.0); HEMOGLOBIN 11.1 G/DL (12.5-16.6); IMMATURE GRANULOCYTE (%) 0.2 % (0.0-0.7); LYMPHOCYTE (%) 12.4 % (15-42); LYMPHOCYTE COUNT 1.2 K/uL (1.0-2.8); MCH 27.8 PG (29.0-34.0); MCHC 29.9 G/DL (30.0-36.0); MCV 92.8 FL (86-99); MONOCYTE (%) 8.1 % (3-12); MONOCYTE COUNT 0.8 K/uL (0-0.8); NEUTROPHIL (%) 73.9 % (45-76); NEUTROPHIL COUNT 7.3 K/uL (1.8-6.4); PLATELET COUNT 128 K/uL (156-360); RBC DIS.WIDTH-CV 17.3 % (11.8-14.6); RBC DIS.WIDTH-SD 58.9 % (39-53); WHITE BLOOD COUNT 9.8 K/uL (4.1-10.2)
[2018-04-18 05:50] LABS: ALBUMIN 3.4 G/DL (3.2-4.8); ALKALINE PHOSPHATASE 144 IU/L (3-129); ALT (GPT) 13 IU/L (3-49); AST (GOT) 19 IU/L (2-34); CHLORIDE 97 MEQ/L (99-109); DIRECT BILIRUBIN 0.1 mg/dL (0.0-0.3); GLUCOSE 94 mg/dL (70-99); POTASSIUM 5.2 MEQ/L (3.7-5.4); SODIUM 137 MEQ/L (136-147); TOTAL BILIRUBIN 0.4 MG/DL (0.0-1.0); TOTAL PROTEIN 5.8 G/DL (6.4-8.3); UREA NITROGEN (BUN) 41 mg/dL (9-23)
[2018-04-18 06:07] LABS: CREATININE 8.9 MG/DL (0.6-1.3); GFR ESTIMATE (CALCULATED) 6 mL/min/ (58.99-99999)
[2018-04-18 16:07] VITALS: BP 148/68
[2018-04-18 16:57] LABS: BENZODIAZEPINES, URINE SCREEN POSITIVE (200 ng/mL)
[2018-04-18 18:39] LABS: CHLORIDE 100 MEQ/L (99-109); POTASSIUM 4.9 MEQ/L (3.7-5.4); SODIUM 136 MEQ/L (136-147)
[2018-04-18 18:40] LABS: CREATININE 5.2 MG/DL (0.6-1.3); GFR ESTIMATE (CALCULATED) 12 mL/min/ (58.99-99999); GLUCOSE 178 mg/dL (70-99); UREA NITROGEN (BUN) 17 mg/dL (9-23)
[2018-04-18 20:48] VITALS: BP 138/62
[2018-04-19 03:56] VITALS: BP 165/68
[2018-04-19 07:53] VITALS: BP 127/58
[2018-04-19 11:23] VITALS: BP 125/58
== END 2018-04-19 14:29 | disposition home or self-care (01) ==
LOC: EME → EDBD 22:11 → EDOF 04-17 02:16 → 5SOUTH 04-17 02:16 → ENRESERV 04-17 02:17 → 5SOUTH 04-17 03:52
PROVIDERS: Emergency Medicine; Hospitalist; Student in an Organized Health Care Education/Training Program
DX: R41.82 Altered mental status, unspecified (principal); E83.51 Hypocalcemia; Z91.15 Patient's noncompliance with renal dialysis; Z91.19 Patient's noncompliance with other medical treatment and regimen; S01.512A Laceration without foreign body of oral cavity, initial encounter; R60.0 Localized edema; S90.01XA Contusion of right ankle, initial encounter; I13.2 Hypertensive heart and chronic kidney disease with heart failure and with stage 5 chronic kidney disease, or end stage renal disease; I50.9 Heart failure, unspecified; N18.6 End stage renal disease; D63.1 Anemia in chronic kidney disease; Z99.2 Dependence on renal dialysis; J43.9 Emphysema, unspecified; K21.9 Gastro-esophageal reflux disease without esophagitis; F41.9 Anxiety disorder, unspecified; Z90.49 Acquired absence of other specified parts of digestive tract; Z87.891 Personal history of nicotine dependence; Z90.81 Acquired absence of spleen; Z98.1 Arthrodesis status; G89.29 Other chronic pain; M54.9 Dorsalgia, unspecified; W19.XXXA Unspecified fall, initial encounter
CPT/HCPCS: 70450; 71045; 73610; 76882; 80048; 80048 91; 80076; 80306 90; 84484; 85025; 85027; 93005; 94640; 94640 76; 94799; 95819; 99202; 99281; 99285; G0257; G0378; J2060; J7050

== ENCOUNTER 2018-04-24 18:06 | Emergency (ER) | payer OTHER ==
[~2018-04-24] VITALS: Ht 162.6 cm; Wt 60.5 kg
[2018-04-24] MEDS ORDERED: KEFLEX500 MG PO (18:36)
[2018-04-24 18:55] VITALS: BP 142/78
== END 2018-04-24 18:55 | disposition home or self-care (01) ==
LOC: EME 18:06
PROC: 0H9KXZZ Drainage of Right Lower Leg Skin, External Approach (ICD-10-PCS; principal; 2018-04-24)
DX: S80.11XA Contusion of right lower leg, initial encounter (principal); W01.10XA Fall on same level from slipping, tripping and stumbling with subsequent striking against unspecified object, initial encounter; L02.415 Cutaneous abscess of right lower limb; L03.115 Cellulitis of right lower limb; I12.0 Hypertensive chronic kidney disease with stage 5 chronic kidney disease or end stage renal disease; E11.22 Type 2 diabetes mellitus with diabetic chronic kidney disease; N18.6 End stage renal disease; J44.9 Chronic obstructive pulmonary disease, unspecified; I50.9 Heart failure, unspecified; K21.9 Gastro-esophageal reflux disease without esophagitis; G89.29 Other chronic pain; M54.9 Dorsalgia, unspecified; F41.9 Anxiety disorder, unspecified; Z99.2 Dependence on renal dialysis; Z87.891 Personal history of nicotine dependence; Z79.4 Long term (current) use of insulin; Z79.51 Long term (current) use of inhaled steroids; Z90.49 Acquired absence of other specified parts of digestive tract; Z90.81 Acquired absence of spleen; Z88.6 Allergy status to analgesic agent
CPT/HCPCS: 99281; 99284

== ENCOUNTER 2018-04-28 11:37 | Inpatient (IN) | payer OTHER ==
[~2018-04-28] VITALS: Ht 172.7 cm; Wt 77.1 kg
[2018-04-28 12:52] LABS: BASOPHIL (%) 0.7 % (0-1); BASOPHIL COUNT 0.1 K/uL (0-0.1); EOSINOPHIL (%) 2.6 % (0-5); EOSINOPHIL COUNT 0.3 K/uL (0-0.3); HEMATOCRIT 40.1 % (38.0-50.0); HEMOGLOBIN 11.8 G/DL (12.5-16.6); IMMATURE GRANULOCYTE (%) 1.2 % (0.0-0.7); LYMPHOCYTE (%) 7.7 % (15-42); LYMPHOCYTE COUNT 0.9 K/uL (1.0-2.8); MCH 28.4 PG (29.0-34.0); MCHC 29.4 G/DL (30.0-36.0); MCV 96.4 FL (86-99); MONOCYTE (%) 6.7 % (3-12); MONOCYTE COUNT 0.8 K/uL (0-0.8); NEUTROPHIL (%) 81.1 % (45-76); NEUTROPHIL COUNT 9.8 K/uL (1.8-6.4); PLATELET COUNT 137 K/uL (156-360); RBC DIS.WIDTH-CV 17.2 % (11.8-14.6); RBC DIS.WIDTH-SD 60.6 % (39-53); RED BLOOD COUNT 4.16 M/uL (4.00-5.50); WHITE BLOOD COUNT 12.2 K/uL (4.1-10.2)
[2018-04-28 12:53] LABS: INTER. NORMALIZED RATIO 1.1
[2018-04-28 12:55] LABS: CHLORIDE 104 mEq/L (99-109); SODIUM 137 mEq/L (136-147)
[2018-04-28 12:57] LABS: GLUCOSE 114 mg/dL (70-99)
[2018-04-28 13:00] LABS: CREATININE 9.6 mg/dL (0.6-1.3); GFR ESTIMATE (CALCULATED) 6 mL/min/ (58.99-99999)
[2018-04-28 13:01] LABS: UREA NITROGEN (BUN) 63 mg/dL (9-23)
[2018-04-28 14:42] LABS: DEVICE NC; O2 FLOW 4 L/MIN; SITE RR
[2018-04-28 14:43] LABS: CARBOXY HGB 1.4 % (0-5); METHEMOGLOBIN 0.4 % (0-1.5); PCO2 72 mm Hg (35-45); PO2 90 mm Hg (80-100); pH 7.24 (7.35-7.45)
[2018-04-28 14:44] LABS: BASE EXCESS 1.7 mEq/L (-3 to +3); BICARBONATE 30.9 mEq/L (22-26)
[2018-04-28 14:54] LABS: HEPATITIS B SURFACE ANTIGEN Nonreactive
[2018-04-28 14:58] LABS: COMMENTS - BLOOD GASES NA C+
[2018-04-28 16:05] LABS: COMMENTS - BLOOD GASES A+C+; DEVICE NC; O2 FLOW 4 L/MIN; PCO2 65 mm Hg (35-45); SITE RR; pH 7.32 (7.35-7.45)
[2018-04-28 16:06] LABS: BASE EXCESS 5.6 mEq/L (-3 to +3); BICARBONATE 33.5 mEq/L (22-26); CARBOXY HGB 1.5 % (0-5); METHEMOGLOBIN 0.8 % (0-1.5); O2 SATURATION (CALCULATED) 95.6 % (95-99); PO2 80 mm Hg (80-100)
[2018-04-28 17:57] LABS: COMMENTS - BLOOD GASES A+C+; DEVICE NC; O2 FLOW 4 L/MIN; SITE RR
[2018-04-28 17:58] LABS: CARBOXY HGB 1.5 % (0-5); METHEMOGLOBIN 0.3 % (0-1.5); O2 SATURATION (CALCULATED) 94.3 % (95-99); PCO2 64 mm Hg (35-45); PO2 69 mm Hg (80-100); pH 7.32 (7.35-7.45)
[2018-04-28 17:59] LABS: BASE EXCESS 5.1 mEq/L (-3 to +3)
[2018-04-28 18:30] VITALS: BP 155/93
[2018-04-28 18:39] LABS: CHLORIDE 96 MEQ/L (99-109); GLUCOSE 128 mg/dL (70-99); SODIUM 135 MEQ/L (136-147)
[2018-04-28 18:41] LABS: CREATININE 3.2 MG/DL (0.6-1.3); GFR ESTIMATE (CALCULATED) 21 mL/min/ (58.99-99999); POTASSIUM 4.3 MEQ/L (3.7-5.4); UREA NITROGEN (BUN) 14 mg/dL (9-23)
[2018-04-28 19:02] VITALS: BP 164/94
[2018-04-28 20:02] VITALS: BP 178/112
[2018-04-28 21:02] VITALS: BP 191/94
[2018-04-28 22:02] VITALS: BP 172/110
[2018-04-28 23:03] VITALS: BP 175/90
[2018-04-29] VITALS (15 sets, daily range): BP systolic 121–188; BP diastolic 55–104
[2018-04-29 05:18] LABS: BASOPHIL (%) 0.7 % (0-1); BASOPHIL COUNT 0.1 K/uL (0-0.1); EOSINOPHIL (%) 0.4 % (0-5); HEMATOCRIT 41.1 % (38.0-50.0); HEMOGLOBIN 11.7 G/DL (12.5-16.6); IMMATURE GRANULOCYTE (%) 0.4 % (0.0-0.7); LYMPHOCYTE (%) 4.7 % (15-42); LYMPHOCYTE COUNT 0.5 K/uL (1.0-2.8); MCH 27.1 PG (29.0-34.0); MCHC 28.5 G/DL (30.0-36.0); MCV 95.4 FL (86-99); MONOCYTE (%) 4.2 % (3-12); MONOCYTE COUNT 0.5 K/uL (0-0.8); NEUTROPHIL (%) 89.6 % (45-76); NEUTROPHIL COUNT 9.6 K/uL (1.8-6.4); PLATELET COUNT 117 K/uL (156-360); RBC DIS.WIDTH-CV 16.9 % (11.8-14.6); RBC DIS.WIDTH-SD 59.6 % (39-53); RED BLOOD COUNT 4.31 M/uL (4.00-5.50); WHITE BLOOD COUNT 10.8 K/uL (4.1-10.2)
[2018-04-29 06:03] LABS: CHLORIDE 95 MEQ/L (99-109); GFR ESTIMATE (CALCULATED) 13 mL/min/ (58.99-99999); GLUCOSE 117 mg/dL (70-99); SODIUM 138 MEQ/L (136-147); UREA NITROGEN (BUN) 27 mg/dL (9-23)
[2018-04-29 06:04] LABS: POTASSIUM 6.1 MEQ/L (3.7-5.4)
[2018-04-29 08:17] LABS: VANCOMYCIN, TROUGH 9.4 MCG/ML (10-20)
[2018-04-30 06:40] LABS: BASOPHIL (%) 0.6 % (0-1); EOSINOPHIL (%) 7.1 % (0-5); EOSINOPHIL COUNT 0.5 K/uL (0-0.3); HEMATOCRIT 32.7 % (38.0-50.0); HEMOGLOBIN 9.8 G/DL (12.5-16.6); IMMATURE GRANULOCYTE (%) 0.3 % (0.0-0.7); LYMPHOCYTE (%) 10.7 % (15-42); LYMPHOCYTE COUNT 0.7 K/uL (1.0-2.8); MCH 27.5 PG (29.0-34.0); MCV 91.9 FL (86-99); MONOCYTE (%) 9.3 % (3-12); MONOCYTE COUNT 0.6 K/uL (0-0.8); NEUTROPHIL COUNT 4.6 K/uL (1.8-6.4); PLATELET COUNT 107 K/uL (156-360); RBC DIS.WIDTH-CV 16.6 % (11.8-14.6); RBC DIS.WIDTH-SD 56.3 % (39-53); RED BLOOD COUNT 3.56 M/uL (4.00-5.50); WHITE BLOOD COUNT 6.4 K/uL (4.1-10.2)
[2018-04-30 07:10] LABS: CHLORIDE 99 MEQ/L (99-109); GLUCOSE 125 mg/dL (70-99); SODIUM 138 MEQ/L (136-147); UREA NITROGEN (BUN) 20 mg/dL (9-23)
[2018-04-30 07:13] LABS: CREATININE 4.1 MG/DL (0.6-1.3); GFR ESTIMATE (CALCULATED) 16 mL/min/ (58.99-99999); POTASSIUM 4.3 MEQ/L (3.7-5.4)
[2018-04-30 07:31] VITALS: BP 176/77
[2018-04-30 15:25] VITALS: BP 128/65
[2018-04-30 17:01] VITALS: BP 174/79
[2018-04-30 21:00] VITALS: BP 145/78
[2018-04-30 22:37] VITALS: BP 156/77
[2018-05-01 04:00] VITALS: BP 135/78
[2018-05-01] MEDS ORDERED: AMOX TR-K CLV1 EAC3 PO (07:45)
[2018-05-01 08:40] LABS: CHLORIDE 99 MEQ/L (99-109); POTASSIUM 3.8 MEQ/L (3.7-5.4); SODIUM 135 MEQ/L (136-147)
[2018-05-01 08:45] VITALS: BP 160/80
[2018-05-01 09:27] LABS: CREATININE 3.7 MG/DL (0.6-1.3); GFR ESTIMATE (CALCULATED) 18 mL/min/ (58.99-99999); GLUCOSE 132 mg/dL (70-99); UREA NITROGEN (BUN) 14 mg/dL (9-23)
== END 2018-05-01 12:50 | disposition home or self-care (01) | DRG 628 ==
LOC: EME 11:37 → 4WEST 14:58 → 3EAST 14:58 → EDOF 14:58 → ENRESERV 15:02 → 4WEST 18:17 → ENRESERV 04-29 12:04 → 4WEST 04-29 12:45 → ENRESERV 04-29 12:48 → 3EAST 04-29 16:41
PROVIDERS: Emergency Medicine; Family Medicine; Hospitalist; Internal Medicine; Internal Medicine Nephrology; Student in an Organized Health Care Education/Training Program
PROC: 5A1D70Z Performance of Urinary Filtration, Intermittent, Less than 6 Hours Per Day (ICD-10-PCS; 2018-04-28)
PROC: 057F3ZZ Dilation of Left Cephalic Vein, Percutaneous Approach (ICD-10-PCS; principal; 2018-04-30)
DX: E87.5 Hyperkalemia (principal); T82.858A Stenosis of other vascular prosthetic devices, implants and grafts, initial encounter; Y83.2 Surgical operation with anastomosis, bypass or graft as the cause of abnormal reaction of the patient, or of later complication, without mention of misadventure at the time of the procedure; I13.2 Hypertensive heart and chronic kidney disease with heart failure and with stage 5 chronic kidney disease, or end stage renal disease; N18.6 End stage renal disease; L03.115 Cellulitis of right lower limb; I50.9 Heart failure, unspecified; E11.22 Type 2 diabetes mellitus with diabetic chronic kidney disease; Z91.15 Patient's noncompliance with renal dialysis; E11.649 Type 2 diabetes mellitus with hypoglycemia without coma; D63.1 Anemia in chronic kidney disease; J44.9 Chronic obstructive pulmonary disease, unspecified; K21.9 Gastro-esophageal reflux disease without esophagitis; E78.5 Hyperlipidemia, unspecified; E87.2 Acidosis; N25.81 Secondary hyperparathyroidism of renal origin; F11.20 Opioid dependence, uncomplicated; F41.9 Anxiety disorder, unspecified; G89.29 Other chronic pain; M54.9 Dorsalgia, unspecified; Z99.2 Dependence on renal dialysis; Z87.891 Personal history of nicotine dependence; Z98.1 Arthrodesis status
CPT/HCPCS: 36600; 70450; 71045; 73700; 74176; 80048; 80048 91; 80202; 82803; 82948; 83605; 85025; 85610; 87040; 87340; 87641; 92610 GN; 93005; 94640; 94799; 99281; 99285; C1725; C1769; C1887; C1894; J1644; J2250; J2543; J2765; J3010; J3370; J7050

== ENCOUNTER 2018-05-06 11:21 | Inpatient (IN) | payer OTHER ==
[~2018-05-06] VITALS: Ht 167.6 cm; Wt 63.0 kg
[2018-05-06 12:29] LABS: BASOPHIL (%) 0.2 % (0-1); BASOPHIL COUNT 0.1 K/uL (0-0.1); EOSINOPHIL (%) 0.9 % (0-5); EOSINOPHIL COUNT 0.2 K/uL (0-0.3); HEMATOCRIT 36.6 % (38.0-50.0); HEMOGLOBIN 11.4 G/DL (12.5-16.6); IMMATURE GRANULOCYTE (%) 0.5 % (0.0-0.7); LYMPHOCYTE COUNT 0.4 K/uL (1.0-2.8); MCH 28.1 PG (29.0-34.0); MCHC 31.1 G/DL (30.0-36.0); MCV 90.1 FL (86-99); MONOCYTE (%) 4.6 % (3-12); MONOCYTE COUNT 0.9 K/uL (0-0.8); NEUTROPHIL (%) 91.8 % (45-76); NEUTROPHIL COUNT 18.3 K/uL (1.8-6.4); RBC DIS.WIDTH-CV 16.7 % (11.8-14.6); RBC DIS.WIDTH-SD 55.5 % (39-53); RED BLOOD COUNT 4.06 M/uL (4.00-5.50)
[2018-05-06 12:34] LABS: PLATELET COUNT 187 K/uL (156-360)
[2018-05-06 12:39] LABS: CHLORIDE 95 mEq/L (99-109); POTASSIUM 4.5 mEq/L (3.7-5.4); SODIUM 135 mEq/L (136-147)
[2018-05-06 12:41] LABS: GLUCOSE 121 mg/dL (70-99)
[2018-05-06 12:51] LABS: CREATININE 5.9 mg/dL (0.6-1.3); GFR ESTIMATE (CALCULATED) 10 mL/min/ (58.99-99999); UREA NITROGEN (BUN) 35 mg/dL (9-23)
[2018-05-06 14:00] LABS: APPEARANCE CLOUDY ((CLEAR)); BILIRUBIN NEGATIVE; BLOOD MODERATE; COLOR YELLOW ((YELLOW)); GLUCOSE (STRIP) NEGATIVE; KETONES NEGATIVE; LEUKOCYTES LARGE; NITRITE NEGATIVE; PROTEIN (STRIP) >=500; SPECIFIC GRAVITY 1.018 (1.000-1.030); UROBILINOGEN 0.2 MG/DL (0.2-1.0)
[2018-05-06 14:22] LABS: EPITHELIAL CELLS RARE /HPF; MUCUS NONE SEEN /LPF; RED BLOOD CELLS NONE SEEN /HPF (0-5); WHITE BLOOD CELLS TNTC /HPF (0-5)
[2018-05-06 14:23] LABS: BACTERIA 1+ /HPF; UCUL ADDED? YES
[2018-05-06 15:06] LABS: C DIFF TOXIN POSITIVE (NEGATIVE)
[2018-05-06 20:31] LABS: HEMATOCRIT 41.5 % (38.0-50.0); MCH 28.4 PG (29.0-34.0); MCHC 31.3 G/DL (30.0-36.0); MCV 90.6 FL (86-99); PLATELET COUNT 171 K/uL (156-360); RBC DIS.WIDTH-CV 17.2 % (11.8-14.6); RED BLOOD COUNT 4.58 M/uL (4.00-5.50); WHITE BLOOD COUNT 14.6 K/uL (4.1-10.2)
[2018-05-06 20:35] LABS: COMMENTS - BLOOD GASES C+; DEVICE NC; O2 FLOW 2 L/MIN; SITE RR
[2018-05-06 20:40] LABS: BASE EXCESS 0.3 mEq/L (-3 to +3); BICARBONATE 26.9 mEq/L (22-26); CARBOXY HGB 1.2 % (0-5); METHEMOGLOBIN 0.5 % (0-1.5); O2 SATURATION (CALCULATED) 91.1 % (95-99); PCO2 51 mm Hg (35-45); PO2 61 mm Hg (80-100); pH 7.33 (7.35-7.45)
[2018-05-06 21:30] VITALS: BP 198/92
[2018-05-06 22:04] LABS: STOOL OCCULT BLD 1ST SPECIMEN NEGATIVE
[2018-05-06] MEDS ORDERED: LASIX40 MG PO (23:41)
[2018-05-06] MEDS ORDERED: TESTONE CI200 MG/1 M IM (23:42)
[2018-05-07 00:57] VITALS: BP 150/80
[2018-05-07 05:52] VITALS: BP 133/63
[2018-05-07 07:00] VITALS: BP 149/67
[2018-05-07 07:20] LABS: ALBUMIN 3.2 G/DL (3.2-4.8); ALKALINE PHOSPHATASE 176 IU/L (3-129); ALT (GPT) 14 IU/L (3-49); AST (GOT) 19 IU/L (2-34); CHLORIDE 97 MEQ/L (99-109); GLUCOSE 115 mg/dL (70-99); POTASSIUM 4.3 MEQ/L (3.7-5.4); SODIUM 137 MEQ/L (136-147); TOTAL BILIRUBIN 0.5 MG/DL (0.0-1.0); TOTAL PROTEIN 5.9 G/DL (6.4-8.3); UREA NITROGEN (BUN) 48 mg/dL (9-23)
[2018-05-07 07:29] LABS: CREATININE 7.1 MG/DL (0.6-1.3); GFR ESTIMATE (CALCULATED) 8 mL/min/ (58.99-99999)
[2018-05-07 11:34] VITALS: BP 149/68
[2018-05-07 15:40] LABS: BASOPHIL (%) 0.3 % (0-1); EOSINOPHIL (%) 6.3 % (0-5); EOSINOPHIL COUNT 0.6 K/uL (0-0.3); HEMATOCRIT 33.9 % (38.0-50.0); HEMOGLOBIN 10.4 G/DL (12.5-16.6); IMMATURE GRANULOCYTE (%) 0.4 % (0.0-0.7); LYMPHOCYTE (%) 4.7 % (15-42); LYMPHOCYTE COUNT 0.5 K/uL (1.0-2.8); MCHC 30.7 G/DL (30.0-36.0); MCV 91.1 FL (86-99); MONOCYTE (%) 6.3 % (3-12); MONOCYTE COUNT 0.6 K/uL (0-0.8); PLATELET COUNT 167 K/uL (156-360); RBC DIS.WIDTH-CV 17.1 % (11.8-14.6); RBC DIS.WIDTH-SD 57.1 % (39-53); RED BLOOD COUNT 3.72 M/uL (4.00-5.50); WHITE BLOOD COUNT 9.8 K/uL (4.1-10.2)
[2018-05-07 15:46] LABS: CHLORIDE 96 MEQ/L (99-109); POTASSIUM 4.2 MEQ/L (3.7-5.4); SODIUM 133 MEQ/L (136-147)
[2018-05-07 15:52] LABS: CREATININE 7.7 MG/DL (0.6-1.3); GFR ESTIMATE (CALCULATED) 8 mL/min/ (58.99-99999); UREA NITROGEN (BUN) 54 mg/dL (9-23)
[2018-05-07 15:53] LABS: GLUCOSE 182 mg/dL (70-99)
[2018-05-07 20:09] VITALS: BP 141/66
[2018-05-07 23:35] VITALS: BP 118/59
[2018-05-08 03:40] VITALS: BP 113/57
[2018-05-08 06:42] LABS: HEMATOCRIT 37.6 % (38.0-50.0); HEMOGLOBIN 11.3 G/DL (12.5-16.6); MCH 27.2 PG (29.0-34.0); MCHC 30.1 G/DL (30.0-36.0); MCV 90.6 FL (86-99); PLATELET COUNT 185 K/uL (156-360); RBC DIS.WIDTH-CV 17.1 % (11.8-14.6); RBC DIS.WIDTH-SD 57.2 % (39-53); RED BLOOD COUNT 4.15 M/uL (4.00-5.50); WHITE BLOOD COUNT 7.2 K/uL (4.1-10.2)
[2018-05-08 07:06] LABS: CHLORIDE 95 MEQ/L (99-109); GFR ESTIMATE (CALCULATED) 11 mL/min/ (58.99-99999); GLUCOSE 235 mg/dL (70-99); POTASSIUM 3.9 MEQ/L (3.7-5.4); SODIUM 135 MEQ/L (136-147); UREA NITROGEN (BUN) 31 mg/dL (9-23)
[2018-05-08 07:09] LABS: CREATININE 5.5 MG/DL (0.6-1.3)
[2018-05-08 07:21] VITALS: BP 123/57
[2018-05-08 10:37] LABS: APPEARANCE TURBID ((CLEAR)); BILIRUBIN NEGATIVE; BLOOD MODERATE; COLOR YELLOW ((YELLOW)); GLUCOSE (STRIP) NEGATIVE; KETONES NEGATIVE; LEUKOCYTES MODERATE; NITRITE NEGATIVE; PROTEIN (STRIP) 100; SPECIFIC GRAVITY 1.019 (1.000-1.030); UROBILINOGEN 0.2 MG/DL (0.2-1.0)
[2018-05-08 10:55] LABS: EPITHELIAL CELLS RARE /HPF; MUCUS RARE /LPF; WHITE BLOOD CELLS TNTC /HPF (0-5)
[2018-05-08 11:00] LABS: COARSE GRANULAR CASTS 0-5 /LPF
[2018-05-08 12:18] VITALS: BP 121/59
[2018-05-08 15:05] VITALS: BP 130/60
[2018-05-08 21:10] VITALS: BP 156/74
[2018-05-08 22:44] VITALS: BP 130/61
[2018-05-09 04:36] VITALS: BP 148/67
[2018-05-09 07:15] VITALS: BP 153/69
[2018-05-09 11:15] VITALS: BP 146/64
[2018-05-09 13:37] LABS: HEMATOCRIT 34.6 % (38.0-50.0); HEMOGLOBIN 10.5 G/DL (12.5-16.6); MCH 27.6 PG (29.0-34.0); MCHC 30.3 G/DL (30.0-36.0); MCV 91.1 FL (86-99); PLATELET COUNT 180 K/uL (156-360); RBC DIS.WIDTH-CV 16.9 % (11.8-14.6); RBC DIS.WIDTH-SD 56.9 % (39-53); WHITE BLOOD COUNT 5.7 K/uL (4.1-10.2)
[2018-05-09 13:49] LABS: ALBUMIN 3.5 G/DL (3.2-4.8); CHLORIDE 99 MEQ/L (99-109); GFR ESTIMATE (CALCULATED) 8 mL/min/ (58.99-99999); GLUCOSE 172 mg/dL (70-99); PHOSPHORUS 4.1 mg/dL (2.5-4.9); POTASSIUM 3.9 MEQ/L (3.7-5.4); SODIUM 136 MEQ/L (136-147)
[2018-05-09 13:50] LABS: CREATININE 7.6 MG/DL (0.6-1.3); UREA NITROGEN (BUN) 52 mg/dL (9-23)
[2018-05-09] MEDS ORDERED: VANCOCIN HCL125 MG PO (14:44)
[2018-05-09 17:09] VITALS: BP 172/68
== END 2018-05-09 19:49 | disposition home or self-care (01) | DRG 371 ==
LOC: EME 11:21 → 5EAST 19:25 → EDOF 19:25 → ENRESERV 19:29 → 5EAST 21:01
PROVIDERS: Emergency Medicine; Hospitalist; Internal Medicine Nephrology
DX: A04.72 Enterocolitis due to Clostridium difficile, not specified as recurrent (principal); N18.6 End stage renal disease; I13.2 Hypertensive heart and chronic kidney disease with heart failure and with stage 5 chronic kidney disease, or end stage renal disease; L03.115 Cellulitis of right lower limb; N39.0 Urinary tract infection, site not specified; F11.20 Opioid dependence, uncomplicated; R45.851 Suicidal ideations; E86.0 Dehydration; K52.89 Other specified noninfective gastroenteritis and colitis; I50.9 Heart failure, unspecified; J44.9 Chronic obstructive pulmonary disease, unspecified; D63.1 Anemia in chronic kidney disease; E11.22 Type 2 diabetes mellitus with diabetic chronic kidney disease; G89.29 Other chronic pain; I27.20 Pulmonary hypertension, unspecified; K21.9 Gastro-esophageal reflux disease without esophagitis; F06.30 Mood disorder due to known physiological condition, unspecified; F41.9 Anxiety disorder, unspecified; R15.9 Full incontinence of feces; K56.41 Fecal impaction; Z90.81 Acquired absence of spleen; Z87.891 Personal history of nicotine dependence; Z99.2 Dependence on renal dialysis; Z91.14 Patient's other noncompliance with medication regimen; Z91.19 Patient's noncompliance with other medical treatment and regimen; Z87.01 Personal history of pneumonia (recurrent); Z73.6 Limitation of activities due to disability; Z79.51 Long term (current) use of inhaled steroids; Z79.82 Long term (current) use of aspirin; Z79.4 Long term (current) use of insulin
CPT/HCPCS: 36600; 70450; 71045; 73590; 74176; 80048; 80048 91; 80053; 80069; 81003; 82272; 82803; 82948; 83605; 85025; 85027; 86140; 87086; 87177; 87329; 87493; 93005; 93971; 94640; 94760; 94799; 99281; 99285; J0692; J1644; J7030; S0028; S0030

== ENCOUNTER 2018-06-09 17:33 | Emergency (ER) | payer OTHER ==
[~2018-06-09] VITALS: Ht 165.1 cm; Wt 56.8 kg
[~2018-06-09 17:33] MED LIST changes: +TESTONE CI200 MG/1 M IM; +VANCOCIN HCL125 MG PO
[2018-06-09 20:08] VITALS: BP 175/85
== END 2018-06-09 20:09 | disposition left against medical advice (07) ==
LOC: EME 17:33
DX: R41.82 Altered mental status, unspecified (principal); I11.0 Hypertensive heart disease with heart failure; I50.9 Heart failure, unspecified; E11.9 Type 2 diabetes mellitus without complications; J44.9 Chronic obstructive pulmonary disease, unspecified; K21.9 Gastro-esophageal reflux disease without esophagitis; N19 Unspecified kidney failure; Z99.2 Dependence on renal dialysis; F41.9 Anxiety disorder, unspecified; Z87.891 Personal history of nicotine dependence; Z90.49 Acquired absence of other specified parts of digestive tract; Z90.81 Acquired absence of spleen; Z79.4 Long term (current) use of insulin; Z79.82 Long term (current) use of aspirin; Z88.6 Allergy status to analgesic agent
CPT/HCPCS: 82948; 93005; 99281; 99283